=== PATIENT | female | born 1945 | race Caucasian/White ===

== ENCOUNTER → 2017-10-20 12:24 | Outpatient (CLI) | payer MEDICARE, OTHER, SELFPAY | PROVIDERS: PCP Family Medicine; Visit Provider Orthopaedic Surgery Foot and Ankle Surgery | DX: Z01.818 Encounter for other preprocedural examination (principal); Z01.812 Encounter for preprocedural laboratory examination | CPT/HCPCS: 93005 ==

== ENCOUNTER 2017-11-21 18:52 | Emergency (ER) | payer MEDICARE, OTHER, SELFPAY ==
[2017-11-21 18:58] VITALS: BP 112/77; PULSE 73; RESP 16; TEMP 36.7; O2SAT 96; BMI 24.0
--- NOTE | 2017-11-21 19:00 | ED.LOWEXIN ---
HPI - Extremity Injury (Lower) <MONTANA Pretty - Last Filed: 11/21/17 21:37> General Chief Complaint: Extremity Injury, Lower Stated Complaint: RIGHT FOOT PAIN X2 DAYS Time Seen by Provider: 11/21/17 18:59 History of Present Illness HPI Narrative: 72-year-old female here for complaint of pain into her right foot over the past couple days. She recently had surgery to repair a hammertoe to her right 5th toe on 25 October. She has been ambulating on that foot with a surgical boot without complication. She reports increased pain to that area over the past couple of days she denies any trauma to the area. No fevers no chills. She has not been in to see orthopedic clinic for follow-up as of yet. Increased pain with ambulation. Related Data Home Medications Medication Instructions Recorded Confirmed NITROGLYCERIN (Nitrostat) 0.4 mg SUBLINGUAL PRN PRN #0 04/11/10 11/21/17 baclofen 10 mg PO HS #0 10/11/16 11/21/17 aspirin 81 mg PO QDAY #0 10/12/16 11/21/17 oxycodone 10 mg PO QID #0 10/12/16 11/21/17 clopidogrel [Plavix] 75 mg PO HS #0 05/07/17 11/21/17 bisacodyl [Fleet Laxative] 13 tab PO QDAYP PRN #0 05/12/17 11/21/17 diphenhydramine HCl [Benadryl 25 mg PO HSP PRN #0 09/17/17 11/21/17 Allergy] hydrocortisone 50 mg PO BID #0 09/17/17 11/21/17 multivitamin [Multiple Vitamins] 1 tab PO QDAY #0 09/17/17 11/21/17 pantoprazole 40 mg PO BID #0 09/17/17 11/21/17 levothyroxine 112 mcg PO QDAY 10/25/17 11/21/17 losartan 25 mg PO QHS 10/25/17 11/21/17 sucralfate 1 g PO TID 10/25/17 11/21/17 Allergies Allergy/AdvReac Type Severity Reaction Status Date / Time Sulfa (Sulfonamide Allergy Intermediate BLISTERS Unverified 09/22/17 12:56 Antibiotics) latex [LATEX] Allergy Mild RASH Unverified 09/22/17 12:56 cefaclor Allergy Unknown PT DOES Unverified 09/22/17 12:56 NOT REMEMBER ceftriaxone Allergy Unknown PT DOES Unverified 09/22/17 12:56 NOT REMEMBER doxycycline [DOXYCYCLINE] Allergy Unknown UNK Unverified 09/22/17 12:56 formaldehyde [FORMALDEHYDE] Allergy Unknown UNK Unverified 09/22/17 12:56 levofloxacin Allergy Unknown SWELLING Unverified 09/22/17 12:56 penicillin G Allergy Unknown my throat Unverified 09/22/17 12:56 tightens up procaine Allergy Unknown (NOVACAINE) Unverified 09/22/17 12:56 unknown strawberry Allergy Unknown RASH Unverified 09/22/17 12:56 terbinafine Allergy Unknown unknown Unverified 09/22/17 12:56 trazodone [TRAZODONE] Allergy Unknown Unverified 09/22/17 12:56 epinephrine AdvReac Severe PASSED OUT Unverified 09/22/17 12:56 prednisone AdvReac Severe FEELS LIKE Unverified 09/22/17 12:56 SKIN ON FIRE zolpidem AdvReac Severe HALLUCINATI Unverified 09/22/17 12:56 ONS alprazolam AdvReac Mild forgetfulness- Unverified 09/22/17 12:56 IS OKAY WITH LORAZEPAM & TEMAZEPAM adhesive AdvReac Unknown PAPER TAPE Unverified 09/22/17 12:56 OK OTHERS? Review of Systems <MONTANA Pretty - Last Filed: 11/21/17 21:37> Constitutional Denies chills, Denies fever(s), Denies lethargy and Denies weakness Eyes Denies change in vision, Denies eye discharge, Denies irritation and Denies loss of vision ENT Ears, Nose, Mouth, and Throat: Denies change in voice, Denies neck pain and Denies sore throat Cardiovascular Denies chest pain, Denies irregular heart rhythm, Denies lightheadedness, Denies palpitations, Denies dyspnea, Denies dyspnea on exertion and Denies orthopnea Respiratory Denies cough, Denies dyspnea, Denies dyspnea on exertion and Denies wheezing Gastrointestinal Gastrointestinal: Denies abdominal pain, Denies change in bowel habits, Denies diarrhea, Denies nausea and Denies vomiting Genitourinary Denies hematuria, Denies flank pain, Denies urinary incontinence and Denies urinary urgency Musculoskeletal Denies neck pain Comments: Right foot pain Integumentary/Breasts Denies pruritus, Denies erythema, Denies rash and Denies wounds Neurologic Denies confusion, Denies loss of vision and Denies weakness Psychiatric Denies anxiety, Denies confusion, Denies depression, Denies homicidal ideation and Denies suicidal ideation Endocrine Denies palpitations Allergic/Immunologic Denies wheezing Exam <MONTANA Pretty - Last Filed: 11/21/17 21:37> Initial Vital Signs Initial Vital Signs: Vital Signs Temperature 98.0 F 11/21/17 18:58 Pulse Rate 73 11/21/17 18:58 Respiratory Rate 16 11/21/17 18:58 Blood Pressure 112/77 11/21/17 18:58 Pulse Oximetry 96 11/21/17 18:58 Const General: cooperative and well developed Nutritional Appearance: well nourished Orientation: alert, awake, oriented x3 and not confused HENMN Mouth: oral mucosae normal, oropharynx normal and moist mucous membranes Eyes Conjunctivae: conjunctivae normal Sclera: sclerae normal Pupils: PERRL Resp Effort & Inspection: normal respiratory effort, able to speak in complete sentences, no respiratory distress and no use of accessory muscles Auscultation: clear to auscultation bilaterally, no rales, no rhonchi and no wheezes Cardio Rate: regular rate Rhythm: regular rhythm Heart Sounds: no click, no gallops, no murmurs and no rubs Skin General: no rashes or lesions noted, No jaundice and No petechiae Extrem Other: A bandage to the right foot is clean dry and intact. Surgical boot is in place. Incision site to right foot 5 status post hammertoe operation appears to be healing well with no signs of infection. A piece of gauze to to the proximal little toe appeared to be tight causing indentation of the proximal little toe. Slight erythema distal sensation is intact distal cap refill less than 2 sec. Pain is present to the distal little toe no signs of infection. <Crow Luevano DO - Last Filed: 11/21/17 22:19> Initial Vital Signs Initial Vital Signs: Vital Signs Temperature 98.0 F 11/21/17 18:58 Pulse Rate 73 11/21/17 18:58 Respiratory Rate 16 11/21/17 18:58 Blood Pressure 112/77 11/21/17 18:58 Pulse Oximetry 96 11/21/17 18:58 Course <MONTANA Pretty - Last Filed: 11/21/17 21:37> Orders Ordered: ED Orders 11/21/17 19:27 XR foot RT min 3V Stat Vital Signs - 8 hr 11/21/17 18:58 11/21/17 20:32 11/21/17 20:35 Temperature 98.0 F Pulse Rate 73 81 78 Respiratory Rate 16 14 16 Blood Pressure 112/77 140/80 H Blood Pressure [Left Arm] 141/84 H Pulse Oximetry 96 95 98 <Crow Luevano DO - Last Filed: 11/21/17 22:19> Orders Ordered: ED Orders 11/21/17 19:27 XR foot RT min 3V Stat Vital Signs - 8 hr 11/21/17 18:58 11/21/17 20:32 11/21/17 20:35 Temperature 98.0 F Pulse Rate 73 81 78 Respiratory Rate 16 14 16 Blood Pressure 112/77 140/80 H Blood Pressure [Left Arm] 141/84 H Pulse Oximetry 96 95 98 MDM - Extremity Injury (Lower) <MONTANA Pretty - Last Filed: 11/21/17 21:37> Imaging Data foot: Radiologist's impression: PROCEDURE: XR FOOT RT MIN 3V INDICATIONS: Increased pain to right ft status post surgery 2 weeks ago TECHNIQUE: 3 views of the foot were acquired. COMPARISON: None. FINDINGS: Bones: No fractures or dislocations. No suspicious bony lesions. K wire fixation of the right fifth toe. The hardware appears intact. There is expected alignment. There is hallux valgus Soft tissues: No tibiotalar joint effusion. Achilles tendon appears normal. IMPRESSION: Post surgical changes as above. Hallux valgus. Dictated by: Jalil Felton M.D. on 11/21/2017 at 19:58 Approved by: Jalil Felton M.D. on 11/21/2017 at 20:02 [facility] Narrative Medical decision making narrative: X-ray of the right foot was obtained was negative for any acute findings or deformities except for normal postsurgical changes. Patient reports feeling much better after the piece of gauze that was constricting at her little toe toe was loosened. Use currently prescribed pain management regimen as needed for any discomfort. Elevate right foot to help with swelling. Follow up with Orthopedics this week as scheduled. Return to the emergency room or follow-up with Orthopedics for worsening pain or other complications Discharge Plan Departure Patient Disposition: Home, Self-Care Clinical Impression: Acute postoperative pain of right foot Discharge Date/Time: 11/21/17 20:35 Interventions: ED Discharge Assessment Last Done: 11/21/17 20:35 Instructions: How to Care for a Surgical Wound Activity Restrictions/Additional Instructions: X-ray of the right foot was obtained was negative for any acute findings or deformities except for normal postsurgical changes. Pain into the right foot appears to be due to piece of gauze that was constricting toe and was loosened. Use currently prescribed pain management regimen as needed for any discomfort. Elevate right foot to help with swelling. Follow up with Orthopedics this week as scheduled. Return to the emergency room or follow-up with Orthopedics for worsening pain or other complications Prescriptions: No Action NITROGLYCERIN (Nitrostat) 0.4 mg Sublingual PRN PRN (Reason: Angina) Qty: 0 RF: 0 baclofen 10 MG tablet 10 mg PO HS Qty: 0 RF: 0 aspirin 81 MG tablet,delayed release (DR/EC) 81 mg PO QDAY Qty: 0 RF: 0 oxycodone 10 MG tablet 10 mg PO QID Qty: 0 RF: 0 clopidogrel [Plavix] 75 MG tablet 75 mg PO HS Qty: 0 RF: 0 bisacodyl [Fleet Laxative] 5 MG tablet,delayed release (DR/EC) 13 tab PO QDAYP PRN (Reason: Constipation) Qty: 0 RF: 0 hydrocortisone 10 MG tablet 50 mg PO BID Qty: 0 RF: 0 diphenhydramine HCl [Benadryl Allergy] 25 MG tablet 25 mg PO HSP PRN (Reason: Insomnia) Qty: 0 RF: 0 pantoprazole 40 MG tablet,delayed release (DR/EC) 40 mg PO BID Qty: 0 RF: 0 multivitamin [Multiple Vitamins] 1 EACH tablet 1 tab PO QDAY Qty: 0 RF: 0 sucralfate 1 g PO TID RF: 0 losartan 25 mg PO QHS RF: 0 levothyroxine 112 mcg PO QDAY RF: 0 Referrals: Joel Chan MD [Primary Care Provider] - <DO Anel Louise Last Filed: 11/21/17 22:19> Cosign ED Attending Ethan Attestation: I was available for consultation during this patient's emergency department encounter
--- NOTE | 2017-11-21 19:27 | DI.RAD.S_ITS ---
PROCEDURE: XR FOOT RT MIN 3V INDICATIONS: Increased pain to right ft status post surgery 2 weeks ago TECHNIQUE: 3 views of the foot were acquired. COMPARISON: None. FINDINGS: Bones: No fractures or dislocations. No suspicious bony lesions. K wire fixation of the right fifth toe. The hardware appears intact. There is expected alignment. There is hallux valgus Soft tissues: No tibiotalar joint effusion. Achilles tendon appears normal. IMPRESSION: Post surgical changes as above. Hallux valgus. Dictated by: Jalil Felton M.D. on 11/21/2017 at 19:58 Approved by: Jalil Felton M.D. on 11/21/2017 at 20:02
--- NOTE | 2017-11-21 20:00 | PC.NURSE ---
Pt had pin placed in R pinky toe due to hammertoe surgery. here reporting increased pain. pt went to x ray and dressing had to be altered for proper scan, pin was rotated and pt reports that the pressure feels much better ans she thinks the pin was digging into adjacent toe causing half her pain.
[2017-11-21 20:32] VITALS: BP 141/84; PULSE 81; RESP 14; O2SAT 95
[2017-11-21 20:35] VITALS: BP 140/80; PULSE 78; RESP 16; O2SAT 98
== END 2017-11-21 20:35 | disposition home or self-care (01) ==
PROVIDERS: Emergency Provider Nurse Practitioner Family; PCP Family Medicine
DX: M79.671 Pain in right foot (principal); G89.18 Other acute postprocedural pain
CPT/HCPCS: 73630; 99282; 99283

== ENCOUNTER 2018-01-07 07:13 | Day surgery (SDC) | payer MEDICARE, OTHER, SELFPAY ==
[2017-12-21 16:59] VITALS: BMI 25.3
[2018-01-07] VITALS (21 sets, daily range): BP systolic 120–187; BP diastolic 72–118; PULSE 63–99; RESP 10–18; TEMP 36.1–36.9; O2SAT 93–98; BMI 25.3; BMI 27.6
--- NOTE | 2018-01-07 09:38 | PM.PREOP ---
Pre-operative Note Interval Note Pre-op Check: Yes History & Physical Reviewed by Physician and Yes Exam Performed Changes: No H&P completed within 30 days and has changed as indicated here:: no changes
[2018-01-07] MEDS: LACTATED RINGERS 1,000 ML 42 ML IV ×2 (09:42→13:23)
--- NOTE | 2018-01-07 09:47 | SUR.PREOP ---
PT STATED HAD CHEST SPASMS YESTERDAY EVENING AND TOOK ONE NITRO 0.4MG WHICH RELIEVED THE CHEST SPASMS. PER PT DAUGHTER THIS IS COMMON FOR PT RELATED TO PT LUTHER'S. DR. HUITRON MADE AWARE OF THIS PRIOR TO SURGERY. NO NEW ORDERS.
--- NOTE | 2018-01-07 10:19 | SUR.PREOP ---
Block start time 0959 . Monitoring initiated and maintained throughout procedure. Oxygen and medications given per anesthesiologist instructions. Patient remained stable throughout procedure, no adverse reactions noted. Block end time 1013. PT TAKEN INTO THE OR AFTER COMPLETION OF THE BLOCK BY LESLIE TRUJILLO. PT LEFT IN STABLE CONDITION, VSS.
[2018-01-07] MEDS: CLINDAMYCIN 600 MG/50 ML PIGGYBACK 50 MG IV ×2 (10:22→17:24)
--- NOTE | 2018-01-07 10:49 | SUR.OPER ---
Supine on padded OR bed, head on pillow, arms secured on padded arm boards at <90 degrees abduction, legs uncrossed, safety belt at thigh, tape over blanket over lower legs.
[2018-01-07] MEDS: BUPIVACAINE 0.5% (PF) VIAL 30 ML INJ (10:59)
--- NOTE | 2018-01-07 11:41 | PM.PROC.1 ---
Procedures Date/Time Date of procedure: 01/07/18 Time of procedure: 10:00 General Procedure description: Ultrasound guided popliteal sciatic nerve block for post op pain control after Right big toe surgery by Dr. López. Risk and benefits of procedure discussed with patient. ASA monitoring applied to patient. Oxygen given via nasal cannula. 2 mg Versed and 100 mcg fentanyl given for procedural sedation. Skin site was prepped with chlorhexidine and allowed to fully dry. Sterile gloves, mask, hat and probe cover were used to maintain sterility. 2% lidocaine and 30ga needle was used to make a small skin wheal at needle insertion site. Under ultrasound guidance, a 21ga 100mm Pajunk needle was directed near the division of the sciatic nerve into tibial and peroneal nerve in the popliteal fossa (lateral approach). Patient reported no parasthesias. After negative aspiration, 20 mL 0.5% ropivicaine and 10mg dexamethasone were injected around sciatic nerve. Patient tolerated procedure well.
[2018-01-07] MEDS: fentaNYL 100 MCG/2 ML INJ 50 MCG IV ×2 (13:56→14:10)
--- NOTE | 2018-01-07 14:12 | PM.OP.1 ---
Operative Date/Time/Diagnoses Date of procedure: 01/07/18 Time of procedure: 14:12 Pre-op diagnosis: 1. hallux valgus, right M20.11 2. 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 Hammertoe M20.41 4. transfer metatarsalgia Post-op diagnosis: same Procedure & Clinicians Procedure: 1. Arthrodesis of metatarsal phalangeal joint great toe, right CPT code 19383 T5 2. Correction hammertoe, right CPT 56040 T6 3. Elizabeth osteotomy 2nd metatarsal cpt [id number] [id number] 4. mtp capsulotomy 45416-h0 Same procedure as scheduled: Yes Indications: The patient is a 72-year-old female with painful hallux valgus and 2nd toe crossover deformity with hammertoe. She feels she has failed conservative treatment with shoe modification, splinting, taping and toe spacers and is requesting surgery. Discussed surgical planning which would include a fusion of the 1st metatarsophalangeal joint as well as correction of the 2nd hammertoe including 2nd metatarsal Elizabeth osteotomy, capsulotomy and extensor tendon lengthening. Patient has no pain in her 3rd and 4th toes that we will not address these. Risks benefits and alternatives to the procedure were explained to the patient in detail including risks for infection, nonunion, malunion, persistence of pain, and hardware irritation, need for additional surgeries, and nerve damage to nerves and vessels, DVT, PE, cardiopulmonary complications, . The patient has expressed their understanding of the surgery and postoperative recovery choir minutes and has elected to proceed. Consent was signed in the office. Surgeon: Christy López Diabetes Territory Manager: Shanda Lopez Anesthesia Type: General and Peripheral nerve block Operative Notes Findings: There is a severe hallux valgus bunion deformity and crossover toe on the right foot. Upon arthrotomy of the 1st MTP joint there was noted significant cartilage thinning across the 1st metatarsal head with a central deeper, full-thickness cartilage defect. There is a prominent medial eminence and mild dorsal spurring. Additionally there was a inferior lateral cartilage defect the base of the proximal phalanx. Metatarsal and proximal phalanx were prepared with conical reamers. After satisfactory alignment was obtained the joint was pinned and stabilized using a 4 0 cannulated lag screw and a dorsal plate from the paragon 28 MTP set which was a small right side plate with 3 distal locking options this was a 0 degree plate slightly bent to approximately 3?. The 2nd crossover toe deformity was then addressed with a standard elliptical incision at the PIP joint. the distal aspect of the proximal phalanx was excised with a saw and the base of the middle phalanx was curretted. Hammertoe arthrodesis was stabilized with 2 045 K-wires. A curvilinear incision was made over the 2nd MTP joint the extensor tendons were lengthened in a Z-fashion. capsulotomy was made and the 2nd metatarsal Elizabeth osteotomy was completed to address the transfer metatarsalgia and was proximally shifted approximately 4 mm and transfixed with a 2.0mm snap off screw from [id number]. Closure Type: primary Specimen(s): none sent Implants & Drains: [place] 28 right-sided small 0? 1st MTP plate-3 hole distal locking option 4.0 30mm cannulated lag screw 2 045K wires 2.0 snap-off Applied: other (Splint) Estimated Blood Loss (mL): 25 Tourniquet time (min): 120 Procedure in detail: The patient was seen in the preoperative area and the consent was confirmed and the surgical site marked. Final questions were answered. The patient was then brought to the operative room by the anesthesia team. Regional block had been performed. Patient was placed supine on the operative table. General anesthesia was administered. All bony prominences were well padded. Padding was placed under the peroneal nerve. Well-padded thigh tourniquet was placed. Right lower extremities prepped and draped in the standard sterile fashion after a two-step pre scrubb with alcohol and chlorhexidine. Formal time-out procedure was performed confirming the patient, side, site of surgery, presence of consent, and administration of preoperative antibiotics which was clindamycin due to PCN allergy. All were in agreement. Planned Implants were in the room and accounted for. An Esmarch bandage was used for exsanguination and the tourniquet on the right lower extremity was elevated to 300 mm of mercury and stayed there for 120 min. Attention was turned to the right foot. There is a severe hallux valgus deformity with crossover 2nd toe. Attention was turned to the great toe. Longitudinal incision was made just medial to the extensor hallucis longus. This was taken down through the skin and subcutaneous tissue. The EHL was retracted laterally, the capsulotomy was performed through the capsule and EHB, and flaps were created to expose the 1st MTP joint. Prominent medial eminence and mild dorsal osteophytes were noted as well as generalized cartilage thinning and a central full-thickness cartilage defect. There was also a cartilage defect inferior lateral at the proximal phalanx base, and generalized cartilage thinning. Again this is greatest centrally. The TPS saw was used to remove the medial eminence in line with the 1st metatarsal. A rongeur was used remove the largest dorsal osteophytes. Next a guidewire for the conical reamers was placed centrally in the 1st metatarsal under fluoroscopic guidance. The conical reamers were selected started with the large size 23 which was much larger than the metatarsal head this was downsized for the 21 which was used for reaming followed by the 19 this provided a good fit and reaming down to cancellous bone. Next guidewire was removed and placed centrally in the proximal phalanx and the matching male reamers were used to ream the proximal phalanx in a similar fashion. Once we were satisfied with the reaming guidewire was removed. The wound was irrigated. The joint surfaces were then drilled with a 2.0 drill and 1.6 K-wire under cooling. This provided excellent bone surfaces for arthrodesis. Next the joint was aligned and pinned in place. Alignment was evaluated under fluoroscopic guidance in multiple planes and also tested on a flat plate which confirmed a [place] could easily pass under the tip of the toe providing 2-3 mm of clearance. Also noted this reduced the hallux valgus and intermetatarsal angle well. Next a guidewire for the 4 0 cannulated screw was placed from distal medial to proximal lateral. This was overdrilled, countersunk. Then the cannulated screw was placed achieving excellent bite and compression. A right small MTP plate was selected it was found that the 0 plate with a slight bend fit best for this patient. This was secured in place with BB tacks. locking screws were placed distally followed by 2 locking screws proximally and a nonlocking screw in the compression slot, the initial placed nonlocking screw in the compression slot was a 15 and this did not achieve adequate bite therefore this was exchanged for an 18 mm which also was loose. A new drill hole was made in the more proximal aspect of the compression slot a 20 screw was placed to achieve a better bite and was left in place. Appropriate alignment and hardware placement was confirmed on fluoroscopy. Attention was then turned to the 2nd crossover toe The extensor tendons were noted to be contracted and tight at the 2nd MTP joint. Curvilinear incision was then made over the MTPJ the extensor tendons were lengthened in a Z-fashion. The capsulotomy was then made to expose the 2nd MTP joint. Sec MTP was long and contributing to the crossover toe deformity and metatarsalgia. this was then shortened with a Elizabeth osteotomy and fixed with a 2.0 snap off screw. To address the hammertoe- Elliptical incision was made over the PIP joint. Small area of skin and extensor tendon were then excised. The TPS saw was used to transect the distal proximal phalanx at the condyles perpendicular to the bone. Curette was then used to prepare the proximal aspect of the middle phalanx. 2-045 K-wires were placed to transfix the PIP arthrodesis were confirmed on fluoroscopy. All wounds were irrigated. The extensor tendons were repaired in a [id number] fashion with 4 0 Vicryl suture. The distal hammertoe incision was closed with 4 0 nylon in a vertical mattress fashion to incorporate the skin and extensor tendon into the repair. One of the 045 K-wires was advanced across the MTP joint to aid in fixation strength. Subcutaneous tissue was closed with 4 0 Monocryl and skin was closed with 4 0 nylon The 1st MTP wound was irrigated and the capsule was closed with 2 0 Maxon suture, subcutaneous tissues were closed with for O Vicryl and 4 0 Monocryl, the skin was closed with 4 0 nylon suture. Sterile dressings were placed with Xeroform gauze Webril ABD pads and a posterior splint. K-wires were cut and capped. All counts were correct. The patient was then awoken from anesthesia and taken to the PACU in good condition. There were no immediate complications from this procedure. Complications: none Condition: stable Disposition: PACU Plan for aftercare: The patient will be nonweightbearing on her right lower extremity for approximately 3 weeks. She will be converted to a cast her 1st postoperative appointment and Then she will be 3 weeks of heel weight-bearing. If she is not able to sufficiently balance on her heels and she will be nonweightbearing for 6 weeks until her pins are pulled in the clinic. She will restart her aspirin on postoperative day 1. She will continue to hold her Plavix, which she has actually been off of it since the end of November for an episode of intestinal bleeding.
[2018-01-07] MEDS: HYDROMORPHONE 2 MG INJ 0.5 MG IV ×4 (14:29→14:57)
--- NOTE | 2018-01-07 14:43 | P.OP_ITS ---
Operative Date/Time/Diagnoses Date of procedure: 01/07/18 Time of procedure: 14:12 Pre-op diagnosis: 1. hallux valgus, right M20.11 2. 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 Hammertoe M20.41 4. transfer metatarsalgia Post-op diagnosis: same Procedure & Clinicians Procedure: 1. Arthrodesis of metatarsal phalangeal joint great toe, right CPT code 87765 T5 2. Correction hammertoe, right CPT 47192 T6 3. Elizabeth osteotomy 2nd metatarsal cpt [id number] [id number] 4. mtp capsulotomy [id number]-b3 Same procedure as scheduled: Yes Indications: The patient is a 72-year-old female with painful hallux valgus and 2nd toe crossover deformity with hammertoe. She feels she has failed conservative treatment with shoe modification, splinting, taping and toe spacers and is requesting surgery. Discussed surgical planning which would include a fusion of the 1st metatarsophalangeal joint as well as correction of the 2nd hammertoe including 2nd metatarsal Elizabeth osteotomy, capsulotomy and extensor tendon lengthening. Patient has no pain in her 3rd and 4th toes that we will not address these. Risks benefits and alternatives to the procedure were explained to the patient in detail including risks for infection, nonunion , malunion, persistence of pain, and hardware irritation, need for additional surgeries, and nerve damage to nerves and vessels, DVT, PE, cardiopulmonary complications, . The patient has expressed their understanding of the surgery and postoperative recovery choir minutes and has elected to proceed. Consent was signed in the office. Surgeon: Christy López Contact Worker Lithography: Shanda Lopez Anesthesia Type: General and Peripheral nerve block Operative Notes Findings: There is a severe hallux valgus bunion deformity and crossover toe on the right foot. Upon arthrotomy of the 1st MTP joint there was noted significant cartilage thinning across the 1st metatarsal head with a central deeper, full-thickness cartilage defect. There is a prominent medial eminence and mild dorsal spurring. Additionally there was a inferior lateral cartilage defect the base of the proximal phalanx. Metatarsal and proximal phalanx were prepared with conical reamers. After satisfactory alignment was obtained the joint was pinned and stabilized using a 4 0 cannulated lag screw and a dorsal plate from the paragon 28 MTP set which was a small right side plate with 3 distal locking options this was a 0 degree plate slightly bent to approximately 3?. The 2nd crossover toe deformity was then addressed with a standard elliptical incision at the PIP joint. the distal aspect of the proximal phalanx was excised with a saw and the base of the middle phalanx was curretted. Hammertoe arthrodesis was stabilized with 2 045 K-wires. A curvilinear incision was made over the 2nd MTP joint the extensor tendons were lengthened in a Z-fashion. capsulotomy was made and the 2nd metatarsal Elizabeth osteotomy was completed to address the transfer metatarsalgia and was proximally shifted approximately 4 mm and transfixed with a 2.0mm snap off screw from [email or web address]. Closure Type: primary Specimen(s): none sent Implants & Drains: Motley 28 right-sided small 0? 1st MTP plate-3 hole distal locking option 4.0 30mm cannulated lag screw 2 045K wires 2.0 snap-off Applied: other (Splint) Estimated Blood Loss (mL): 25 Tourniquet time (min): 120 Procedure in detail: The patient was seen in the preoperative area and the consent was confirmed and the surgical site marked. Final questions were answered. The patient was then brought to the operative room by the anesthesia team. Regional block had been performed. Patient was placed supine on the operative table. General anesthesia was administered. All bony prominences were well padded. Padding was placed under the peroneal nerve. Well-padded thigh tourniquet was placed. Right lower extremities prepped and draped in the standard sterile fashion after a two-step pre scrubb with alcohol and chlorhexidine. Formal time-out procedure was performed confirming the patient, side, site of surgery, presence of consent, and administration of preoperative antibiotics which was clindamycin due to PCN allergy. All were in agreement. Planned Implants were in the room and accounted for. An Esmarch bandage was used for exsanguination and the tourniquet on the right lower extremity was elevated to 300 mm of mercury and stayed there for 120 min. Attention was turned to the right foot. There is a severe hallux valgus deformity with crossover 2nd toe. Attention was turned to the great toe. Longitudinal incision was made just medial to the extensor hallucis longus. This was taken down through the skin and subcutaneous tissue. The EHL was retracted laterally, the capsulotomy was performed through the capsule and EHB, and flaps were created to expose the 1st MTP joint. Prominent medial eminence and mild dorsal osteophytes were noted as well as generalized cartilage thinning and a central full-thickness cartilage defect. There was also a cartilage defect inferior lateral at the proximal phalanx base, and generalized cartilage thinning. Again this is greatest centrally. The TPS saw was used to remove the medial eminence in line with the 1st metatarsal. A rongeur was used remove the largest dorsal osteophytes. Next a guidewire for the conical reamers was placed centrally in the 1st metatarsal under fluoroscopic guidance. The conical reamers were selected started with the large size 23 which was much larger than the metatarsal head this was downsized for the 21 which was used for reaming followed by the 19 this provided a good fit and reaming down to cancellous bone. Next guidewire was removed and placed centrally in the proximal phalanx and the matching male reamers were used to ream the proximal phalanx in a similar fashion. Once we were satisfied with the reaming guidewire was removed. The wound was irrigated. The joint surfaces were then drilled with a 2.0 drill and 1.6 K-wire under cooling. This provided excellent bone surfaces for arthrodesis. Next the joint was aligned and pinned in place. Alignment was evaluated under fluoroscopic guidance in multiple planes and also tested on a flat plate which confirmed a [place] [facility] could easily pass under the tip of the toe providing 2-3 mm of clearance. Also noted this reduced the hallux valgus and intermetatarsal angle well. Next a guidewire for the 4 0 cannulated screw was placed from distal medial to proximal lateral. This was overdrilled, countersunk. Then the cannulated screw was placed achieving excellent bite and compression. A right small MTP plate was selected it was found that the 0 plate with a slight bend fit best for this patient. This was secured in place with BB tacks. locking screws were placed distally followed by 2 locking screws proximally and a nonlocking screw in the compression slot, the initial placed nonlocking screw in the compression slot was a 15 and this did not achieve adequate bite therefore this was exchanged for an 18 mm which also was loose. A new drill hole was made in the more proximal aspect of the compression slot a 20 screw was placed to achieve a better bite and was left in place. Appropriate alignment and hardware placement was confirmed on fluoroscopy. Attention was then turned to the 2nd crossover toe The extensor tendons were noted to be contracted and tight at the 2nd MTP joint. Curvilinear incision was then made over the MTPJ the extensor tendons were lengthened in a Z-fashion. The capsulotomy was then made to expose the 2nd MTP joint. Sec MTP was long and contributing to the crossover toe deformity and metatarsalgia. this was then shortened with a Elizabeth osteotomy and fixed with a 2.0 snap off screw. To address the hammertoe- Elliptical incision was made over the PIP joint. Small area of skin and extensor tendon were then excised. The TPS saw was used to transect the distal proximal phalanx at the condyles perpendicular to the bone. Curette was then used to prepare the proximal aspect of the middle phalanx. 2-045 K-wires were placed to transfix the PIP arthrodesis were confirmed on fluoroscopy. All wounds were irrigated. The extensor tendons were repaired in a [id number] fashion with 4 0 Vicryl suture. The distal hammertoe incision was closed with 4 0 nylon in a vertical mattress fashion to incorporate the skin and extensor tendon into the repair. One of the 045 K-wires was advanced across the MTP joint to aid in fixation strength. Subcutaneous tissue was closed with 4 0 Monocryl and skin was closed with 4 0 nylon The 1st MTP wound was irrigated and the capsule was closed with 2 0 Maxon suture , subcutaneous tissues were closed with for O Vicryl and 4 0 Monocryl, the skin was closed with 4 0 nylon suture. Sterile dressings were placed with Xeroform gauze Webril ABD pads and a posterior splint. K-wires were cut and capped. All counts were correct. The patient was then awoken from anesthesia and taken to the PACU in good condition. There were no immediate complications from this procedure. Complications: none Condition: stable Disposition: PACU Plan for aftercare: The patient will be nonweightbearing on her right lower extremity for approximately 3 weeks. She will be converted to a cast her 1st postoperative appointment and Then she will be 3 weeks of heel weight-bearing. If she is not able to sufficiently balance on her heels and she will be nonweightbearing for 6 weeks until her pins are pulled in the clinic. She will restart her aspirin on postoperative day 1. She will continue to hold her Plavix, which she has actually been off of it since the end of November for an episode of intestinal bleeding.
--- NOTE | 2018-01-07 15:03 | SUR.PHASEI ---
pt arrived to pacu hypertensive and Dr. Palafox informed. He stated she is always hypertensive. She is in sr no other complaints noted. Pt continues to complain of left hip pain. Pt arrived to hospital with left hip pain and it is chronic. Dr. Palafox aware.
--- NOTE | 2018-01-07 16:03 | PT.IPTN ---
Current Diagnoses Hallux valgus (acquired), right foot (01/07/18) Other deformities of toe(s) (acquired), right foot (01/07/18) Surgery Performed Operation Date: 01/07/18 10:45 Actual Procedures p 1st MTPJ Fusion(Right) - Christy López MD s Correction of 2nd Toe Crossover and Hammertoe(Right) - Christy López MD s Capsulotomy, MTPJ(Right) - Christy López MD s Poss Elizabeth Osteotomy 2nd Metatarsal(Right) - Christy López MD Physical Therapy Treatment Note M3 PT-IP Subjective Start: 01/07/18 16:01 Freq: NEEDED Status: Active Protocol: Document 01/07/18 16:02 AB (Rec: 01/07/18 16:03 AB [id number]) Subjective Physical Therapy Visit Type Type Patient Refusal Notes checked on pt and pt refused therapy stated taht she just got up on the floor. daughter present in room.
[2018-01-07] MEDS: OXYCODONE IR 10 MG TABLET PO (17:23)
[2018-01-07] MEDS: SODIUM CHLORIDE 0.9% 250 ML 21 ML IV (17:23)
[2018-01-07] MEDS: SUCRALFATE 1 GM TABLET PO ×2 (17:23→20:11)
[2018-01-07] MEDS: SODIUM CHLORIDE 0.9% FLUSH 10 ML IV ×2 (17:24→20:10)
[2018-01-07] MEDS: HYDROCORTISONE 10 MG TABLET 30 MG PO (20:10)
[2018-01-07] MEDS: LOSARTAN 25 MG TABLET PO (20:11)
[2018-01-07] MEDS: PANTOPRAZOLE 40 MG TABLET PO (20:11)
[2018-01-07] MEDS: DOCUSATE 100 MG CAPSULE PO (20:11)
[2018-01-07] MEDS: BACLOFEN 10 MG TABLET PO (20:12)
[2018-01-07] MEDS: OXYCODONE IR 5 MG TABLET PO (20:38)
--- NOTE | 2018-01-07 20:45 | PC.NURSE ---
POST-Op Received pt at approximately 1515 via courtney, accompanied by AUDIO DIRECTOR. A&Ox3, plesant and cooperative with care. R foot in soft splinted cast slightly moistened, unable to assess pulse due to dressing but cap refill to toes intact. pt with no sensation or movement initially (received nerve block intra-op). pt voiced chest pain to CHANNELER, denied to this RN, c/o L hip pain, R foot pain and headache. pt can become anxious when discussing pain medication times (very anxious that we are unable to follow her home schedule due to time of transfer and requesting medication 3 hours early). spoke with pt's daughter, Arleen, who was able to explain administration times and pt agreeable to have PRN oxycodone Q3H. pt tolerating Po intake without issues. R foot kept elevated. voiding via bedpan without difficulties. oriented to room and call light.
[2018-01-08] VITALS (9 sets, daily range): BP systolic 115–160; BP diastolic 69–94; PULSE 67–88; RESP 16–20; TEMP 36.2–36.7; O2SAT 96–98
[2018-01-08] MEDS: OXYCODONE IR 5 MG TABLET PO ×7 (00:10→20:04)
[2018-01-08] MEDS: CLINDAMYCIN 600 MG/50 ML PIGGYBACK 50 MG IV (03:17)
[2018-01-08 05:30] LABS: Hematocrit 36.7 % (36-46); Hemoglobin 12.1 g/dL (12.0-16.0); Mean Corpuscular HGB Conc 33.1 % (30-36); Mean Corpuscular Hemoglobin 26.4 PG (26-34); Mean Corpuscular Volume 79.9 fL (80-100); Platelet Count 171 X10^3/uL (150-400); Red Blood Cell Count 4.59 X10^6/uL (4.0-5.2); White Blood Cell Count 13.3 X10^3/uL (4.5-11.0)
[2018-01-08] MEDS: LEVOTHYROXINE 112 MCG TABLET PO (07:59)
[2018-01-08] MEDS: SUCRALFATE 1 GM TABLET PO ×4 (08:39→20:05)
[2018-01-08] MEDS: DOCUSATE 100 MG CAPSULE PO ×2 (09:53→20:04)
[2018-01-08] MEDS: PANTOPRAZOLE 40 MG TABLET PO ×2 (09:53→20:04)
[2018-01-08] MEDS: HYDROCORTISONE 10 MG TABLET 30 MG PO ×2 (09:53→20:03)
[2018-01-08] MEDS: ASPIRIN EC 81 MG TABLET PO (09:53)
[2018-01-08] MEDS: SODIUM CHLORIDE 0.9% FLUSH 10 ML IV ×3 (09:55→21:56)
--- NOTE | 2018-01-08 10:16 | PM.PNPO.1 ---
Subjective Date Patient Seen: 01/08/18 Time Patient Seen: 10:16 Interval history: Hospital day 2, postop day 1 following right foot 1st MPJ arthrodesis, 2nd toe toe hammertoe repair with Elizabeth osteotomy and capsulotomy by Dr. López. Patient laid of pain throughout night. Has had right foot elevated throughout the night. She has not been out of bed since surgery. She is outpatient with bed status. Patient also complains of left low back and left radicular leg pain which has been present for about 2 weeks. She was seen by Dr. Humphries 10 days ago to evaluate this. X-ray at that time noted at degenerative disc disease in lumbar spine. Dr. Humphries had planned to do a lumbar spine MRI which has not been done. Patient is requesting discharge to SNF. She is to be nonweightbearing to her right foot x3 weeks. She states she does not have anyone at home to help her. Exam Vital Signs (past 8 hours): - 01/08/18 05:40 Temperature 97.1 F L Pulse Rate 67 Respiratory Rate 16 Blood Pressure 137/79 H Pulse Oximetry 96 Oxygen Delivery Method Room Air Oxygen Flow Rate 0 Narrative Exam Narrative: Alert, responsive. In the discomfort lying in bed. Back. Tenderness on palpation to the left lower lumbar area. Legs. Right leg. Dressing and splint to right lower leg is dry. Good blanching of toes. Left leg. No calf pain or swelling. Pulses symmetrical. She does have 4/5 strength to left leg with SLR and foot dorsiflexion plantar flexion. Objective Labs Result Diagrams: 01/08/18 05:15 Labs: Laboratory Results - last 24 hr 01/08/18 05:15 WBC 13.3 H RBC 4.59 Hgb 12.1 Hct 36.7 MCV 79.9 L MCH 26.4 MCHC 33.1 RDW 16.0 H Plt Count 171 Assessment & Plan Post-op (1) Lumbar back pain with radiculopathy affecting left lower extremity: Current Visit: Yes Status: Acute Postoperative Procedures Operation Date: 01/07/18 10:45 Actual Procedures Side Surgeon p 1st MTPJ Fusion Right Christy López MD s Correction of 2nd Toe Crossover and Hammertoe Right Christy Lópze MD s Capsulotomy, MTPJ Right Christy López MD s Poss Elizabeth Osteotomy 2nd Metatarsal Right Christy López MD Patient will work with PT/OT today. environmental planner will discuss with the patient possible discharge options. [facility]. We will start Decadron 4 mg q.8h to help with lumbar radiculopathy. Patient be nonweightbearing to her right foot x3 weeks. Discharge pending planning by environmental emergencies planner. Time Spent With Patient less than 15 minutes Quality VTE Deep Vein Thrombosis/Pulmonary Embolism Present on Admission: No
--- NOTE | 2018-01-08 10:23 | RT ---
pt seen post-op rt leg, pt started on incentive Spirometer pred-2,000cc pt is able to do 500cc pt instructed to use Q1 w/a x10 brewaths from 8am-8pm, pt is very cooperative and should not have any problems using her i/s, spo2 98% sat on room air, hr-70,F-16, bs are equal and Generally clear.
[2018-01-08] MEDS: DEXAMETHASONE 4 MG TABLET PO ×2 (11:25→20:04)
--- NOTE | 2018-01-08 12:05 | PT.IIE ---
Current Diagnoses Hallux valgus (acquired), right foot (01/07/18) Other deformities of toe(s) (acquired), right foot (01/07/18) Radiculopathy, lumbar region (01/07/18) Surgery Performed Operation Date: 01/07/18 10:45 Actual Procedures p 1st MTPJ Fusion(Right) - Christy López MD s Correction of 2nd Toe Crossover and Hammertoe(Right) - Christy López MD s Capsulotomy, MTPJ(Right) - Christy López MD s Poss Elizabeth Osteotomy 2nd Metatarsal(Right) - Christy López MD Surgical History (Last Updated 12/29/17 @ 10:32 by Hilary Garcia, RN) History of Radhika fundoplication (Acute) History of arthroplasty of both knees (Acute) History of bilateral oophorectomies (Acute) History of bladder surgery (Acute) History of colonoscopy with polypectomy (Acute) History of coronary artery stent placement (Acute) History of esophagogastroduodenoscopy (EGD) (Acute) History of tonsillectomy (Acute) History of total right hip arthroplasty (Acute) Hx of appendectomy (Acute) Hx of cardiac cath (Acute ~2012) Hx of total knee arthroplasty (Acute) S/P surgical manipulation of ankle joint (Acute) Medical History (Last Updated 12/29/17 @ 14:24 by Hilary Garcia, RN) Carlton disease (Acute) Allergic rhinitis (Acute) Altered mental status (Acute) Anemia in other chronic diseases classified elsewhere (Acute) Anxiety (Acute) Aphasia (Acute) Arthritis (Acute) Asthma (Acute) Bowel obstruction (Acute ~2015) CAD (coronary artery disease) (Acute) CVA (cerebral vascular accident) (Acute) Cellulitis (Acute) Chronic chest pain (Acute) Chronic constipation (Acute) Chronic pain (Acute) Colonic disease (Acute) Contusion of right hand including fingers (Acute) 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) Depression (Acute) Diarrhea (Acute) Diverticulosis (Acute) Dyspnea on exertion (Acute) Fall (Acute) Femur fracture (Acute) GERD (gastroesophageal reflux disease) (Acute) GI bleed (Acute ~12/11/17) Generalized headaches (Acute) Generalized weakness (Acute) Hallux valgus (acquired), right foot (Acute) Hammer toe of right foot (Acute ~10/25/17) Head injury (Acute) Hiatal hernia (Acute) Hip fracture (Acute) History of UTI (Acute) History of colitis (Acute) History of confusion (Acute) History of headache (Acute) History of hysterectomy (Acute) History of ulcer disease (Acute) Hyperthyroidism, subclinical (Acute) Hypokalemia (Acute) Hypotension (Acute) Hypothyroidism (Acute) Impaired vision (Acute) Incontinence (Acute) Myocardial infarction (Acute) Nausea (Acute) Nausea & vomiting (Acute) Opioid dependence (Acute) Ovarian cancer (Acute) PTSD (post-traumatic stress disorder) (Acute) Pneumonia (Acute) Right foot pain (Acute) Sepsis (Acute) Septic joint of left knee joint (Acute) Sialadenitis (Acute) Sleep apnea (Acute) Urinary incontinence (Acute) Physical Therapy Inpatient Evaluation/Re-Eval M1 PT/OT-IP Prior Functional Status Start: 01/07/18 16:01 Freq: NEEDED Status: Active Protocol: Document 01/08/18 12:05 [facility] (Rec: 01/08/18 13:28 [facility] [id number]) Medical Review Prior Functional Status Medical History Reviewed Yes Diet/Fluid Consistency Regular Communication some hesitation occasionally with discussion but WNL Mobility and Gait modified indep. ambulator with occasional use of walker or cane. Activities of Daily Living and IADL's modified indep. ADLs Social History Household Members children Living Arrangements Apartment/Condo Number of Floors (Floors) One Floor Number of Stairs To Enter/Railing? ramped entry Home Environment Walk in Shower Tub/Shower Ramp Home Equipment Front Wheel Walker Four Wheel Walker Straight Cane Additional Social History Comment transport chair, knee scooter. Pt's son works during the day and daughter is only able to assist occasionally. Pt reports at least 7 previous falls, and expresses her concern for falling. M2 PT-IP Current Condition Start: 01/07/18 16:01 Freq: NEEDED Status: Active Protocol: Document 01/08/18 12:05 [facility] (Rec: 01/08/18 13:28 [facility] [email or web address]) Physical Therapy Current Condition Current Condition Evaluation Date 01/08/18 Treatment Diagnosis R foot surgery, impaired mobility Onset Date 01/07/18 Precautions Other Precautions NWB for 3 weeks, then will be casted @ wk 3 and then may WB through heel only if healing well. Weight Bearing Status Weight Bearing Status Non-Weight Bearing Allowed Weight Bearing Amount (enter % NWB RLE or #) (%) M3 PT-IP Subjective Start: 01/07/18 16:01 Freq: NEEDED Status: Active Protocol: Document 01/08/18 12:05 [facility] (Rec: 01/08/18 13:28 [facility] [email or web address]) Subjective Physical Therapy Visit Type Type Initial Evaluation Visit Start Time 11:32 Visit Stop Time 12:05 Total Visit Minutes 33 Notes daughter and son in room during session. surgical information: 1st MPJ arthrodesis, 2nd toe toe hammertoe repair with Elizabeth osteotomy and capsulotomy by Dr. López 01/07/2018. Number of COLLEGE COUNSELOR Visits 0 Physical Therapy Visit Comments Patient Comments Pt is afraid of falling, she does not feel safe going home due to not being able to have full assistance. Short Term Goals improve mobility. Therapy Pain Assessment Pain When Pain Assessed At Rest Pain Present Pain Present Pain Reported Location Right Foot Intensity 8 Scale Used Numeric (1 - 10) M4 PT-IP Mobility and Gait Start: 01/07/18 16:01 Freq: NEEDED Status: Active Protocol: Document 01/08/18 12:05 [facility] (Rec: 01/08/18 13:28 [facility] [email or web address]) PT-Bed Mobility Assessment Sit to Supine Sit to Supine Minimal Assistance Scooting Scooting to Edge of Bed Minimal Assistance PT-Transfer Assessment Sit to and From Stand Sit to and from Stand Minimal Assistance 1 Person Assistance Use of Upper Extremities Equipment Transfer Assistive Device Gait Belt Large Based Quad Cane Transfers Transfer Destination Chair Transfer Technique Lateral Scoot Transfer Ability Level of Assist Minimal Assistance Use of Upper Extremities Comments Mobility Comments transfer to the L to chair, moderate VC for sequencing and optimal positioning of FWW. Gait Assessment Gait Gait Assistance Required: Minimum Assistance 2 Person Assist Distance (Feet) (feet) 2 Able to Maintain Weight Bearing Status Yes During Gait Assistive Devices Assistive Device Gait Belt Front Wheeled Walker Factors Limiting Gait Function Factors Limiting Gait Function Decreased Activity Tolerance Decreased Strength Pain Poor Balance Comments Gait Comments slow hopping forward and backward ~2 ft each direction using FWW. PT-Balance Assessment Sitting Balance and Reactions Static Sitting Balance Ability Good Dynamic Sitting Balance Ability Good Standing Balance and Reactions Static Standing Balance Ability Fair Dynamic Standing Balance Ability Poor Device Used FWW M5 PT-IP Objective Assessments Start: 01/07/18 16:01 Freq: NEEDED Status: Active Protocol: Document 01/08/18 12:05 [facility] (Rec: 01/08/18 13:28 [facility] [email or web address]) Orientation Orientation/Cognition Level of Alertness Alert Orientation Name Age Birthday Month Date Year Day of Week Place Situation Safety Awareness Understands Safety Issues Strength Comments Strength Comments RLE weakness with hip flexion due to pain and extra bulk of splint. Coordination Assessment Gross Coordination Gross Coordination WNL Assessment Coordination Comments unable to test R ankle due to surgery. M6 PT-IP Treatment Start: 01/07/18 16:01 Freq: NEEDED Status: Active Protocol: Document 01/08/18 12:05 [facility] (Rec: 01/08/18 13:28 [facility] [email or web address]) Physical Therapy Treatment Education Education Provided Precautions Weight Bearing Status Safety M7 PT-IP Assessment and Plan Start: 01/07/18 16:01 Freq: NEEDED Status: Active Protocol: Document 01/08/18 12:05 [facility] (Rec: 01/08/18 13:28 [facility] [email or web address]) PT Summary Assessment and Plan Potential Rehabilitation Potential Excellent Status of Condition at Evaluation Stable Summary Impairments Pain ROM Strength Balance Bed Mobility Transfers Gait Activity Tolerance Assessment Summary POD #1 R 1st MPJ arthrodesis, 2nd toe toe hammertoe repair with Elizabeth osteotomy and capsulotomy by Dr. López. Pt able to maintain NWB status of the RLE, but fatigues very quickly and requires both verbal and physical assistance to manage the FWW and safely maneuver forward, backward and laterally to chair. Pt will not be able to have 24/7 assistance upon d/c, which is what would be required given her h/o of multiple falls at home and a new condition with strict NWB for at least 3 weeks. Pt would not be able to enter/exit home safely without assistance either, which poses a threat and danger to the pt in case of emergency at home. Pt would greatly benefit from SNF rehabilitation to improve to indep. with mobility and safety with functional activities. Goals Bed Mobility Goal Standby Assistance Transfer Goal Standby Assistance Gait Goal Standby Assistance Front Wheel Walker Gait Distance 20 Other Goals modified indep. management of knee scooter without cuing. Days to Meet Goals 3 Frequency of Treatment Frequency Of Treatment Twice a Day Treatment Plan Physical Therapy Treatment Plan Bed Mobility Training Transfer Training Gait Training Therapeutic Exercise Balance Retraining Post Op Education Discharge Planning Hot or Cold Pack Neuromuscular Re-ed Recommendations To Nursing Amount of Assist Needed 1 Person Assist Discharge Recommendations PT Discharge Recommendations SNF Rehab
[2018-01-08] MEDS: VORTIOXETINE 15 EACH PO (14:16)
--- NOTE | 2018-01-08 15:01 | PC.NURSE ---
pt alert and oriented, vss, pain not well controlled, 5 mg oxycodone PO, administered q3 around the clock per request with little impact. Worked with physical therapy and is progressing well with 2 person assist, FWW and gait belt for in room mobilization. Tolerating po intake well, had tiny BM this shift, states to have chronic problems with constipation. Last BM stated to be on the .
--- NOTE | 2018-01-08 15:20 | CM.DANOTE ---
Patient is a 72 year old female who was admitted on 01/07/18 for OPB Metatarsal Phalangeal Joint Fusion. Pt has [place] and [place] and AARP for insurance and her PCP is Dr. Chan. EMR was reviewed. Per Ortho PA, pt is non-weight baring for 3 weeks and lives alone with busy local family and pt requesting [facility] SN[facility] rehab prior to home. Per PT, recommending SNF vs Home with HH. SW met bedside with pt and explained role and pt confirmed that she lives at home in [place] and has local son Omega, who works a lot and not able to get time off, and Dtr Arleen ([phone]) who is going to school and is her DPOA. Pt confirms that she has a hx of [facility] a couple years ago and states that she would like [facility] before safe d/c home. SW had lengthy discussion with pt and her son and Dtr via phone, at pt's request, and fully discussed OBS Status and the criteria to meet Inpt Status for Medicare to cover SNF. SW discussed possible options of Private pay SNF, HH and private pay caregivers, and calling both [employer]ARP and [place] supplemental to determine if pt has any coverage for in-home support. Pt and family both upset about Medicare criteria and pt not meeting Inpt Status but aware that this is a governmental/healthcare issue and outside of the hospital's availability for change. Dtr states that she is willing to call pt's supplemental insurance to determine if any in-home coverage and states that she may end up just having to stay with the pt at d/c and utilize HH but they will make some calls and talk to the pt more tomorrow to determine safe d/c plan and hopeful that pt can remain in the hospital tomorrow to give them more of a chance to make a plan and contact insurance on Wednesday since this is the weekend. Plan: SW to follow closely with pt and family to determine safe d/c plan of home with HH and possible private pay caregivers vs private pay SNF. JORGE Brewer Discharge Planning/Care Management CM Discharge Assessment Start: 01/08/18 15:17 Freq: Status: Active Protocol: Document 01/08/18 15:17 [facility] (Rec: 01/08/18 15:20 [facility] [id number]) Discharge Planning Assessment Assigned Bilingual Sales Consultant DISTRICT LEADER History Provided By Patient Family Member Medical Record Has Patient been admitted in last 30 No days? Is this patient on Medicare? Yes Is the admit diagnosis the same? Yes Comment Initially outpt with bed and changed to Obs Status Prior Living Arrangements Apartment/Condo Household Members children Type of transporation used prior to Relies on Others admit Comment Pt has support from her local son and dtr Independent with ADL's Yes: mostly Is patient alert and oriented? Yes Needs Assistance With Home Chores / Shopping Caregiver for Another No Patient Discharge Plan Description [facility] Needed at Discharge Physical Therapy Occupational Therapy Home Health Aid Home Health Nurse Comment Patient wanting SNF rehab at [facility] but not Inpt Status and likely not able to Private pay snf Discharge Plan Home with Home Health Transportation Arrangement Patient's Dtr and son can provide transport unless pt goes to private pay SNF If Pt is MCR-Have 3 Inpt. midnights been No: OBS Status confirmed with UR? Review Status In Process Next Review Type Discharge Review
--- NOTE | 2018-01-08 15:30 | PT.IPTN ---
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 Weight Bearing Status Weight Bearing Status Non-Weight Bearing Allowed Weight Bearing Amount (enter % NWB RLE or #) (%) M3 PT-IP Subjective Start: 01/07/18 16:01 Freq: NEEDED Status: Active Protocol: Document 01/08/18 15:30 [facility] (Rec: 01/08/18 16:02 [facility] [email or web address]) Subjective Physical Therapy Visit Type Type Treatment Note Visit Start Time 15:00 Visit Stop Time 15:30 Total Visit Minutes 30 Number of MARINE TOWER OPERATOR Visits 0 Physical Therapy Visit Comments Patient Comments Pt wants to try to go out of the room. She does not want to try the knee scooter, she feels it is too dangerous for her given her h/o falls. M4 PT-IP Mobility and Gait Start: 01/07/18 16:01 Freq: NEEDED Status: Active Protocol: Document 01/08/18 15:30 [facility] (Rec: 01/08/18 16:02 [facility] [email or web address]) PT-Bed Mobility Assessment Supine to Sit Supine to Sit Independent Scooting Scooting to Edge of Bed Independent Scooting Up and Down in Bed Independent PT-Transfer Assessment Sit to and From Stand Sit to and from Stand Independent Equipment Transfer Assistive Device Gait Belt Front Wheeled Walker Transfers Transfer Destination Chair Transfer Technique Stand Step Pivot Transfer Ability Level of Assist Standby Assistance Comments Mobility Comments NWB RLE, able to maintain throughout. Gait Assessment Gait Gait Assistance Required: Standby Assistance Distance (Feet) (feet) 80 Able to Maintain Weight Bearing Status Yes During Gait Assistive Devices Assistive Device Gait Belt Front Wheeled Walker Factors Limiting Gait Function Factors Limiting Gait Function Decreased Activity Tolerance Pain Comments Gait Comments hopping with LLE only, maintained NWB RLE. PT-Balance Assessment Sitting Balance and Reactions Static Sitting Balance Ability Good Dynamic Sitting Balance Ability Good Standing Balance and Reactions Static Standing Balance Ability Good Dynamic Standing Balance Ability Fair Device Used FWW M6 PT-IP Treatment Start: 01/07/18 16:01 Freq: NEEDED Status: Active Protocol: Document 01/08/18 15:30 [facility] (Rec: 01/08/18 16:02 [facility] [email or web address]) Physical Therapy Treatment Education Education Provided Weight Bearing Status Safety M7 PT-IP Assessment and Plan Start: 01/07/18 16:01 Freq: NEEDED Status: Active Protocol: Document 01/08/18 15:30 [facility] (Rec: 01/08/18 16:02 [facility] [email or web address]) PT Summary Assessment and Plan Summary Progress Towards Goals Progressing Toward Goals Assessment Summary Pt able to perform safe gait out of the room this afternoon , with swing-to pattern using the LLE only in WB. She maintained her NWB status throughout the entire session. She was fatigued but demonstrated good technique and only slight imbalance but able to self-correct without WB on the RLE. Pt is likely not a good candidate for a knee scooter given her h/o falls and fear of using the device, likely would be more safe using FWW and transport chair with assistance. If they are able to obtain 24/7 assistance, she may go home but if not she would benefit from SNF rehabilitation until she improves her functional independence. Goals Bed Mobility Goal Standby Assistance Transfer Goal Standby Assistance Gait Goal Standby Assistance Front Wheel Walker Gait Distance 20 Other Goals modified indep. management of knee scooter without cuing. Days to Meet Goals 3 Frequency of Treatment Frequency Of Treatment Twice a Day Treatment Plan Other Recommendations and Next Treatment gait, CG training Focus Recommendations To Nursing Amount of Assist Needed 1 Person Assist Discharge Recommendations PT Discharge Recommendations SNF Rehab Other Discharge Recommendations SNF vs. home with 24/7 and
--- NOTE | 2018-01-08 16:11 | OT.IP.TRT ---
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 Pt having trouble working her phone and with word finding, nursing notified . To try OT eval again Wednesday when OT next available.
[2018-01-08] MEDS: BACLOFEN 10 MG TABLET PO (20:04)
[2018-01-08] MEDS: LOSARTAN 25 MG TABLET PO (20:04)
[2018-01-08] MEDS: NITROGLYCERIN 0.4 MG SL TAB SL ×2 (21:01→21:15)
--- NOTE | 2018-01-08 21:04 | PC.NURSE ---
Addendum entered by Marjan Cruz R.N. 01/08/18 22:14: troponin level WNL. next troponin lab due at 0400 Original Note: Addendum entered by Marjan Cruz R.N. 01/08/18 22:02: s/p nitro administration, pt appeared to be resting comfortably in bed, however when wakened and asked about chest pain, pt states no relief. VS remains WNL, pt remains in no acute distress and resting comfortably in bed. another PRN nitro dose administered and pt states still no relief of chest pain. Dr. Ratliff notified. Received order for EKG and to consult hospitalist. EKG shows SR with occasional premature complexes. Dr. Mcpherson notified of consult and EKG results. Received order for check troponin lab and recheck within 6 hours if normal, and 1 time dose of 4mg IV morphine. pt updated on plan of care, still appears to be resting comfortably in bed but continues to state no relief of chest pain. Administered morphine and pt now appears to be sleeping comfortably. still awaiting troponin lab results. call light within reach. Original Note: SHIFT NOTE A&Ox3, pt seems slightly forgetful compared to yesterday evening. pt requesting PRN oxycodone Q3H for L hip, R foot and low back pain. at approximately 2100 pt stating 8/10 tightness and chest pain to L chest area. pt appears relaxed and comfortable in no acute distress, VS WNL. 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 PRN nitro administered with immediate relief of chest pain reported. pt appears to be resting comfortably. call light within reach.
[2018-01-08] MEDS: MORPHINE 4 MG/ML INJ IV (21:56)
[2018-01-08 22:12] LABS: Troponin I < 0.012 ng/mL (0.01-0.034)
[2018-01-09] VITALS (9 sets, daily range): BP systolic 127–183; BP diastolic 76–92; PULSE 66–99; RESP 16–18; TEMP 36.2–36.9; O2SAT 96–98
[2018-01-09] MEDS: OXYCODONE IR 5 MG TABLET PO ×8 (00:48→23:45)
[2018-01-09] MEDS: DEXAMETHASONE 4 MG TABLET PO ×3 (04:03→19:22)
[2018-01-09 04:53] LABS: Troponin I < 0.012 ng/mL (0.01-0.034)
[2018-01-09] MEDS: LEVOTHYROXINE 112 MCG TABLET PO (07:12)
[2018-01-09] MEDS: NITROGLYCERIN 0.4 MG SL TAB SL (08:10)
[2018-01-09] MEDS: ASPIRIN EC 81 MG TABLET PO (09:16)
[2018-01-09] MEDS: SUCRALFATE 1 GM TABLET PO ×4 (09:16→20:25)
[2018-01-09] MEDS: DOCUSATE 100 MG CAPSULE PO ×2 (09:16→20:26)
[2018-01-09] MEDS: VORTIOXETINE 15 EACH PO (09:16)
[2018-01-09] MEDS: SODIUM CHLORIDE 0.9% FLUSH 10 ML IV ×2 (09:17→20:27)
[2018-01-09] MEDS: HYDROCORTISONE 10 MG TABLET 30 MG PO ×2 (09:19→20:26)
[2018-01-09] MEDS: PANTOPRAZOLE 40 MG TABLET PO ×2 (09:30→20:26)
--- NOTE | 2018-01-09 10:07 | PM.PNPO.1 ---
Subjective Date Patient Seen: 01/09/18 Time Patient Seen: 10:07 Interval history: Patient is seen postop day 2 1st MT P fusion and lesser toe procedures by Dr. López. Patient is doing reasonably well but still having moderate foot pain. She complained of some chest pain during the night last night which was evaluated and the patient has remained stable without major complication. Exam Vital Signs (past 8 hours): - 01/09/18 05:19 01/09/18 08:10 01/09/18 08:24 Temperature 97.4 F L 98.0 F Pulse Rate 70 71 71 Respiratory Rate 16 18 Blood Pressure 152/76 H 183/92 H 183/92 H Pulse Oximetry 96 96 01/09/18 08:25 Temperature Pulse Rate 82 Respiratory Rate Blood Pressure 146/89 H Pulse Oximetry Fraction of Inspired Oxygen 21 Oxygen Delivery Method Room Air Oxygen Flow Rate 0 Narrative Exam Narrative: Patient's foot remains neurovascularly intact splint is dry and intact. 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
--- NOTE | 2018-01-09 12:02 | PT.IPTN ---
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 Weight Bearing Status Weight Bearing Status Non-Weight Bearing Allowed Weight Bearing Amount (enter % NWB RLE or #) (%) M3 PT-IP Subjective Start: 01/07/18 16:01 Freq: NEEDED Status: Active Protocol: Document 01/09/18 11:24 CLB (Rec: 01/09/18 12:01 CLB [id number]) Subjective Physical Therapy Visit Type Type Treatment Note Visit Start Time 11:24 Visit Stop Time 11:47 Total Visit Minutes 23 Number of PUBLIC IMPROVEMENT INSPECTOR Visits 1 Physical Therapy Visit Comments Patient Comments Pt wants me to tell her daughter she can't use the knee scooter. Therapy Pain Assessment Pain When Pain Assessed At Rest Pain Present Pain Present Pain Reported Location Right Foot Intensity 8 Scale Used Numeric (1 - 10) M4 PT-IP Mobility and Gait Start: 01/07/18 16:01 Freq: NEEDED Status: Active Protocol: Document 01/09/18 11:24 CLB (Rec: 01/09/18 12:01 CLB [id number]) PT-Transfer Assessment Sit to and From Stand Sit to and from Stand Independent Equipment Transfer Assistive Device Gait Belt Front Wheeled Walker Transfers Transfer Destination Chair Transfer Technique after ambulation Transfer Ability Level of Assist Standby Assistance Comments Mobility Comments NWB RLE, able to maintain throughout. Gait Assessment Gait Gait Assistance Required: Standby Assistance Distance (Feet) (feet) 80 Able to Maintain Weight Bearing Status Yes During Gait Assistive Devices Assistive Device Gait Belt Front Wheeled Walker Factors Limiting Gait Function Factors Limiting Gait Function Decreased Activity Tolerance Pain Comments Gait Comments Pt uses FWW w/UE support while hopping on LLE. Pt able to maintain NWB of RLE during ambution. PT-Balance Assessment Sitting Balance and Reactions Static Sitting Balance Ability Good Dynamic Sitting Balance Ability Good Standing Balance and Reactions Static Standing Balance Ability Good Dynamic Standing Balance Ability Fair Device Used FWW M5 PT-IP Objective Assessments Start: 01/07/18 16:01 Freq: NEEDED Status: Active Protocol: Document 01/08/18 12:05 RCC (Rec: 01/08/18 13:28 RCC [id number]) Orientation Orientation/Cognition Level of Alertness Alert Orientation Name Age Birthday Month Date Year Day of Week Place Situation Safety Awareness Understands Safety Issues Strength Comments Strength Comments RLE weakness with hip flexion due to pain and extra bulk of splint. Coordination Assessment Gross Coordination Gross Coordination WNL Assessment Coordination Comments unable to test R ankle due to surgery. M6 PT-IP Treatment Start: 01/07/18 16:01 Freq: NEEDED Status: Active Protocol: Document 01/09/18 11:24 CLB (Rec: 01/09/18 12:01 CLB [id number]) Physical Therapy Treatment Education Education Provided Weight Bearing Status Safety M7 PT-IP Assessment and Plan Start: 01/07/18 16:01 Freq: NEEDED Status: Active Protocol: Document 01/09/18 11:24 CLB (Rec: 01/09/18 12:01 CLB [id number]) PT Summary Assessment and Plan Potential Rehabilitation Potential Excellent Status of Condition at Evaluation Stable Summary Impairments Pain ROM Strength Balance Bed Mobility Transfers Gait Activity Tolerance Progress Towards Goals Progressing Toward Goals Assessment Summary Pt able to maintain NWB with gait using FWW and LLE/UE. Pt needed cues for posture and gaze as well as not getting too close to front of walker. Pt does not want to use knee scooter but daughter insists she at least tries. Due to pt history of falls, FWW would be best option for pt safety at this time. If pt has 24 assist pt may go home but would benefit from SNF. Goals Bed Mobility Goal Standby Assistance Transfer Goal Standby Assistance Gait Goal Standby Assistance Front Wheel Walker Gait Distance 20 Other Goals modified indep. management of knee scooter without cuing. Days to Meet Goals 3 Frequency of Treatment Frequency Of Treatment Twice a Day Treatment Plan Other Recommendations and Next Treatment gait, CG training Focus Recommendations To Nursing Amount of Assist Needed 1 Person Assist Discharge Recommendations PT Discharge Recommendations SNF Rehab Other Discharge Recommendations SNF vs. home with 04/01 and
--- NOTE | 2018-01-09 14:07 | CM.DPC ---
DCP/Continued: Reviewed chart. Received verbal referral requesting LINEN GRADER meet with patient and daughter re: d/c plan. LINEN GRADER met with patient and daughter/Arleen at bedside explained role. Patient currently at [facility] under [facility] status for elective foot procedure that was performed on 01-07-18 by Orthopedics. Daughter reports that patient resides alone and needs too much assistance to return home. Daughter requesting that LINEN GRADER look into bed for patient at [facility]. Notified patient and daughter that patient's insurance does not cover room/board at [facility]. Daughter believes that patient's secondary F plan through [employer] might? Notified patient and daughter that LINEN GRADER would fax insurance information and clinical to [facility] for review. Patient aware that if secondary plan does not cover room/board at [facility] she will be responsible. Both patient and daughter aware and agreeable to privately pay for short amount of time if needed. Placed call to [facility] spoke with fabiana/Malia. She is requesting all information be faxed. She will discuss with Estefania in admit and they will check with Nadege in AM. P: Anticipate d/c to [facility] for short amount of time prior to returning home alone. Patient needs to be able to get in/out of bed on her own and perform basic ADL's before returning home. Patient and daughter aware that this most likely will be private pay for room/board. Following closely. JORGE Muniz
--- NOTE | 2018-01-09 14:25 | PT.IPTN ---
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 Weight Bearing Status Weight Bearing Status Non-Weight Bearing Allowed Weight Bearing Amount (enter % NWB RLE or #) (%) M3 PT-IP Subjective Start: 01/07/18 16:01 Freq: NEEDED Status: Active Protocol: Document 01/09/18 13:35 CLB (Rec: 01/09/18 14:25 CLB [id number]) Subjective Physical Therapy Visit Type Type Treatment Note Visit Start Time 13:35 Visit Stop Time 14:05 Total Visit Minutes 30 Number of PRODUCT SUPPORT TECHNICIAN Visits 2 Physical Therapy Visit Comments Patient Comments Pt wants to go to SNF rehab because she feels unsafe to go home. Therapy Pain Assessment Pain When Pain Assessed At Rest Pain Present Pain Present Pain Reported Location Right Foot Intensity 8 Scale Used Numeric (1 - 10) M4 PT-IP Mobility and Gait Start: 01/07/18 16:01 Freq: NEEDED Status: Active Protocol: Document 01/09/18 13:35 CLB (Rec: 01/09/18 14:25 CLB [id number]) PT-Bed Mobility Assessment Sit to Supine Sit to Supine Minimal Assistance PT-Transfer Assessment Sit to and From Stand Sit to and from Stand Independent Equipment Transfer Assistive Device Gait Belt Front Wheeled Walker Transfers Transfer Destination Bed Transfer Technique after ambulation Transfer Ability Level of Assist Standby Assistance Comments Mobility Comments NWB RLE, able to maintain throughout. Gait Assessment Gait Gait Assistance Required: Contact Guard Assist Distance (Feet) (feet) 100 Able to Maintain Weight Bearing Status Yes During Gait Assistive Devices Assistive Device Gait Belt Front Wheeled Walker Factors Limiting Gait Function Factors Limiting Gait Function Decreased Activity Tolerance Pain Comments Gait Comments Pt continues to maintain NWB of RLE but needed CGA for minor posterior lean at times during gait. PT-Balance Assessment Sitting Balance and Reactions Static Sitting Balance Ability Good Dynamic Sitting Balance Ability Good Standing Balance and Reactions Static Standing Balance Ability Good Dynamic Standing Balance Ability Fair Device Used FWW M5 PT-IP Objective Assessments Start: 01/07/18 16:01 Freq: NEEDED Status: Active Protocol: Document 01/08/18 12:05 RCC (Rec: 01/08/18 13:28 RCC [id number]) Orientation Orientation/Cognition Level of Alertness Alert Orientation Name Age Birthday Month Date Year Day of Week Place Situation Safety Awareness Understands Safety Issues Strength Comments Strength Comments RLE weakness with hip flexion due to pain and extra bulk of splint. Coordination Assessment Gross Coordination Gross Coordination WNL Assessment Coordination Comments unable to test R ankle due to surgery. M6 PT-IP Treatment Start: 01/07/18 16:01 Freq: NEEDED Status: Active Protocol: Document 01/09/18 11:24 CLB (Rec: 01/09/18 12:01 CLB [id number]) Physical Therapy Treatment Education Education Provided Weight Bearing Status Safety M7 PT-IP Assessment and Plan Start: 01/07/18 16:01 Freq: NEEDED Status: Active Protocol: Document 01/09/18 13:35 CLB (Rec: 01/09/18 14:25 CLB [id number]) PT Summary Assessment and Plan Potential Rehabilitation Potential Excellent Status of Condition at Evaluation Stable Summary Impairments Pain ROM Strength Balance Bed Mobility Transfers Gait Activity Tolerance Progress Towards Goals Progressing Toward Goals Assessment Summary Pt needed CGA with gait due to minor posterior lean as pt was trying to advance LLE. Pt would benefit from SNF rehab for continued gait training for safety and advance functional independence. Goals Bed Mobility Goal Standby Assistance Transfer Goal Standby Assistance Gait Goal Standby Assistance Front Wheel Walker Gait Distance 20 Days to Meet Goals 3 Frequency of Treatment Frequency Of Treatment Twice a Day Treatment Plan Other Recommendations and Next Treatment gait, CG training Focus Recommendations To Nursing Amount of Assist Needed 1 Person Assist Discharge Recommendations PT Discharge Recommendations SNF Rehab Other Discharge Recommendations SNF vs. home with 04/01 and HH
--- NOTE | 2018-01-09 14:48 | PC.NURSE ---
1445 Pt resting in bed, eyes closed, even resp noted. RLE up on pillow. Pt up in ibarra for ambulation w/PT. Pt took oxycodone 5mg for pain mngmnt, w/good results. Pt is oriented x 3, voids per BSC, taking in po diet w/o diff. Dtr did come visit this shift. Pt able to make her needs known, uses call light appropriately.
--- NOTE | 2018-01-09 16:08 | P.CONS_ITS ---
History of Present Illness Date Patient Seen: 01/09/18 Time Patient Seen: 15:30 Chief complaint: *OPB*metatarsal phalangeal joint fusion etc notes Reason for consult: Chest pain Requesting provider: Anoop Ratliff Narrative: 72-year-old female who was electively admitted to the [facility] 3 days ago for right foot surgery by Dr. López. She has known coronary artery disease. 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 She started having chest pain yesterday evening. She described the pain as a spasm on the left side of her anterior chest. The severity of the pain was initially 8/10. The chest pain did not improve with sublingual nitroglycerin. EKG did not show ST-T changes. She was given 4 mg of IV morphine and the pain subsequently resolved. She has not had recurrent chest pain since then. 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) Depression (Acute) Diarrhea (Acute) Diverticulosis (Acute) Dyspnea on exertion (Acute) Fall (Acute) Femur fracture (Acute) GERD (gastroesophageal reflux disease) (Acute) GI bleed (Acute ~12/11/17) Generalized headaches (Acute) Generalized weakness (Acute) Hallux valgus (acquired), right foot (Acute) Hammer toe of right foot (Acute ~10/25/17) Head injury (Acute) Hiatal hernia (Acute) Hip fracture (Acute) History of UTI (Acute) History of colitis (Acute) History of confusion (Acute) History of headache (Acute) History of hysterectomy (Acute) History of ulcer disease (Acute) Hyperthyroidism, subclinical (Acute) Hypokalemia (Acute) Hypotension (Acute) Hypothyroidism (Acute) Impaired vision (Acute) Incontinence (Acute) Myocardial infarction (Acute) Nausea (Acute) Nausea & vomiting (Acute) Opioid dependence (Acute) Ovarian cancer (Acute) PTSD (post-traumatic stress disorder) (Acute) Pneumonia (Acute) Right foot pain (Acute) Sepsis (Acute) Septic joint of left knee joint (Acute) Sialadenitis (Acute) Sleep apnea (Acute) Urinary incontinence (Acute) Surgical History History of Radhika fundoplication (Acute) History of arthroplasty of both knees (Acute) History of bilateral oophorectomies (Acute) History of bladder surgery (Acute) History of colonoscopy with polypectomy (Acute) History of coronary artery stent placement (Acute) History of esophagogastroduodenoscopy (EGD) (Acute) History of tonsillectomy (Acute) History of total right hip arthroplasty (Acute) Hx of appendectomy (Acute) Hx of cardiac cath (Acute ~2012) Hx of total knee arthroplasty (Acute) S/P surgical manipulation of ankle joint (Acute) Social History household members: children Smoking Status: Never smoker Comment: She is . Her about 5 years ago. She denies alcohol drinking or cigarette smoking Family history: Noncontributory Meds Home Medications Medication Instructions Recorded Confirmed Type NITROGLYCERIN (Nitrostat) 0.4 mg SUBLINGUAL PRN PRN #0 04/11/10 01/07/18 History baclofen 10 mg PO HS #0 10/11/16 01/07/18 History aspirin 81 mg PO QDAY #0 10/12/16 01/07/18 History oxycodone 10 mg PO Q6H PRN #0 10/12/16 01/07/18 History clopidogrel [Plavix] 75 mg PO HS #0 05/07/17 01/07/18 History bisacodyl [Fleet Laxative] 13 tab PO QDAYP PRN #0 05/12/17 01/07/18 History diphenhydramine HCl [Benadryl 25 mg PO HSP PRN #0 09/17/17 01/07/18 History Allergy] hydrocortisone 30 mg PO BID #0 09/17/17 01/07/18 History multivitamin [Multiple Vitamins] 1 tab PO QDAY #0 09/17/17 01/07/18 History pantoprazole 40 mg PO BID #0 09/17/17 01/07/18 History levothyroxine 112 mcg PO QDAY 10/25/17 01/07/18 History losartan 25 mg PO QHS 10/25/17 01/07/18 History sucralfate 1 g PO QID 10/25/17 01/07/18 History vortioxetine 15 mg PO DAILY 12/29/17 01/07/18 History Allergies Allergy/AdvReac Type Severity Reaction Status Date / Time Sulfa (Sulfonamide Allergy Intermediate BLISTERS, Verified 01/07/18 09:02 Antibiotics) Hives latex [LATEX] Allergy Mild RASH Verified 01/07/18 09:02 cefaclor Allergy Unknown PT DOES Verified 01/07/18 09:02 NOT REMEMBER ceftriaxone Allergy Unknown PT DOES Verified 01/07/18 09:02 NOT REMEMBER doxycycline [DOXYCYCLINE] Allergy Unknown UNK Verified 01/07/18 09:02 formaldehyde [FORMALDEHYDE] Allergy Unknown UNK Verified 01/07/18 09:02 levofloxacin Allergy Unknown SWELLING, Verified 01/07/18 09:02 edema penicillin G Allergy Unknown my throat Verified 01/07/18 09:02 tightens up, Hives strawberry Allergy Unknown RASH Verified 01/07/18 09:02 terbinafine Allergy Unknown unknown Verified 01/07/18 09:02 terfenadine Allergy Unknown Rash Verified 01/07/18 09:02 trazodone [TRAZODONE] Allergy Unknown Edema Verified 01/07/18 09:02 epinephrine AdvReac Severe PASSED OUT Verified 01/07/18 09:02 prednisone AdvReac Severe FEELS LIKE Verified 01/07/18 09:02 SKIN ON FIRE, Rash zolpidem AdvReac Severe HALLUCINATI Verified 01/07/18 09:02 ONS alprazolam AdvReac Mild forgetfulness, Verified 01/07/18 09:02 hallucinati- IS OK WITH LORAZEPAM & TEMAZEPAM adhesive AdvReac Unknown PAPER TAPE Verified 01/07/18 09:02 OK OTHERS? gabapentin AdvReac Unknown Verified 01/07/18 09:02 procaine AdvReac Unknown (NOVACAINE) Verified 01/07/18 09:02 Edema Review of Systems Constitutional Comments: No fever chills or sweats Cardiovascular Cardiovascular: Reports as per HPI Respiratory Comments: Denies cough Gastrointestinal Comments: No abdominal pain Genitourinary Comments: Denies dysuria Neurologic Comments: No headache Exam Vital Signs (past 8 hours): - 01/09/18 08:10 01/09/18 08:24 01/09/18 08:25 Temperature 98.0 F Pulse Rate 71 71 82 Respiratory Rate 18 Blood Pressure 183/92 H 183/92 H 146/89 H Pulse Oximetry 96 01/09/18 13:46 Temperature 98.0 F Pulse Rate 99 H Respiratory Rate 18 Blood Pressure 135/79 H Pulse Oximetry 96 Fraction of Inspired Oxygen 21 Oxygen Delivery Method Room Air Oxygen Flow Rate 0 Narrative Exam Narrative: GENERAL: Pleasant appearing middle-aged woman in no acute distress. HEENT: Head normocephalic, atraumatic. Eyes pupils equal round NECK: Supple, no JVD, CHEST: Breath sounds equal bilaterally, no wheezes rales or rhonchi. CARDIAC: Regular rate and rhythm without murmurs, rubs or gallops. ABDOMEN: Soft, nontender. Normoactive bowel sounds all 4 quadrants. No guarding or rebound. EXTREMITIES: Right foot and right lower leg was dressed in dressing and splint NEUROLOGICAL: Alert and oriented; Normal muscle strength. SKIN: Warm, dry, no petechiae, no rashes or lesions. Objective Labs Result Diagrams: 01/08/18 05:15 Labs: Laboratory Results - last 24 hr 01/08/18 01/09/18 21:41 04:19 Troponin I < 0.012 < 0.012 Assessment & Plan Plan: Assessment/Plan Narrative: 1. Chest pain: She was ruled out for TX with 2 negative troponins. Her EKG also did not reveal acute ST-T changes. She does have known coronary artery disease. We will continue her outpatient medications, including losartan. She was noticed to have relatively fast pulse up to 99. I will start her on low- dose metoprolol for cardio protection. Continue baby aspirin. Use sublingual nitroglycerin as needed for chest pain. Okay to continue using morphine IV if her chest pain does not improve with sublingual nitro. 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 She is also on Decadron IV for lumbar radiculopathy. Her blood pressure is stable. 3. GERD: Continue Protonix 4. Hypothyroidism: Continue levothyroxine per outpatient dosing 5. History of stroke with memory loss: She is at her baseline.
[2018-01-09] MEDS: METOPROLOL 25 MG TABLET PO (17:02)
[2018-01-09] MEDS: BACLOFEN 10 MG TABLET PO (20:25)
[2018-01-09] MEDS: LOSARTAN 25 MG TABLET PO (20:26)
[2018-01-10] VITALS (7 sets, daily range): BP systolic 123–174; BP diastolic 74–103; PULSE 64–84; RESP 16–20; TEMP 36.1–36.7; O2SAT 95–98
[2018-01-10] MEDS: OXYCODONE IR 5 MG TABLET PO ×7 (02:48→23:41)
[2018-01-10] MEDS: DEXAMETHASONE 4 MG TABLET PO ×3 (02:49→20:53)
[2018-01-10] MEDS: LEVOTHYROXINE 112 MCG TABLET PO (06:05)
--- NOTE | 2018-01-10 07:19 | PM.PNPO.1 ---
Subjective Date Patient Seen: 01/10/18 Time Patient Seen: 07:15 Interval history: Patient seen bedside status post right Elizabeth osteotomy hammertoe correction of the 2nd toe. She is doing well however she is complaining of radiculopathy down the contralateral leg. She would like to go to SNF however she is outpatient status. She may have help at home from her daughter however this is not 100%. She was worked up yesterday for PA due to chest pain but troponins were negative x2. Exam Vital Signs (past 8 hours): - 01/09/18 23:43 01/10/18 05:35 Temperature 97.2 F L 96.9 F L Pulse Rate 73 74 Respiratory Rate 16 16 Blood Pressure 153/84 H 156/92 H Pulse Oximetry 96 95 Fraction of Inspired Oxygen 21 Oxygen Delivery Method Room Air Oxygen Flow Rate 0 Narrative Exam Narrative: Patient well-developed well-nourished in no acute distress. Patient alert oriented. Examination of her right leg shows that she is neurovascularly intact with K-wires in the 2nd toe. Calf is soft and compressible. Patient is at baseline neurologically. Objective Labs Result Diagrams: 01/08/18 05:15 Assessment & Plan Post-op (1) Hammer toe, acquired: Problem details: Patient is postop day 3. Status post the below procedure. She is doing well, however, she needs either a SNF or home health with 24 hr supervision as previous stroke makes her unstable. She will likely be nonweightbearing for 6 weeks as she will probably be unable heel weight-bearing due to baseline unsteadiness. Workup for chest pain yesterday was negative for PA. Discharge pending determination of vs. SNF. Current Visit: No Status: Acute Postoperative Procedures Operation Date: 01/07/18 10:45 Actual Procedures Side Surgeon p 1st MTPJ Fusion Right Christy López MD s Correction of 2nd Toe Crossover and Hammertoe Right Christy López MD s Capsulotomy, MTPJ Right Christy López MD s Poss Elizabeth Osteotomy 2nd Metatarsal Right Christy López MD Time Spent With Patient less than 15 minutes Quality VTE Deep Vein Thrombosis/Pulmonary Embolism Present on Admission: No
[2018-01-10] MEDS: VORTIOXETINE 15 EACH PO (07:54)
[2018-01-10] MEDS: PANTOPRAZOLE 40 MG TABLET PO ×2 (07:55→20:53)
[2018-01-10] MEDS: DOCUSATE 100 MG CAPSULE PO ×2 (07:55→20:53)
[2018-01-10] MEDS: HYDROCORTISONE 10 MG TABLET 30 MG PO (07:55)
[2018-01-10] MEDS: METOPROLOL ER 50 MG TABLET PO (07:55)
[2018-01-10] MEDS: SUCRALFATE 1 GM TABLET PO ×4 (07:56→20:52)
[2018-01-10] MEDS: ASPIRIN EC 81 MG TABLET PO (07:56)
[2018-01-10] MEDS: SODIUM CHLORIDE 0.9% FLUSH 10 ML IV ×2 (07:58→20:52)
--- NOTE | 2018-01-10 11:04 | PT.IPTN ---
Current Diagnoses Hallux valgus (acquired), right foot (01/07/18) Other hammer toe(s) (acquired), unspecified foot (01/07/18) Other deformities of toe(s) (acquired), right foot (01/07/18) Radiculopathy, lumbar region (01/07/18) Surgery Performed Operation Date: 01/07/18 10:45 Actual Procedures p 1st MTPJ Fusion(Right) - Christy López MD s Correction of 2nd Toe Crossover and Hammertoe(Right) - Christy López MD s Capsulotomy, MTPJ(Right) - Christy López MD s Poss Elizabeth Osteotomy 2nd Metatarsal(Right) - Christy López MD Physical Therapy Treatment Note M2 PT-IP Current Condition Start: 01/07/18 16:01 Freq: NEEDED Status: Active Protocol: Document 01/08/18 12:05 RCC (Rec: 01/08/18 13:28 RCC [id number]) Physical Therapy Current Condition Current Condition Evaluation Date 01/08/18 Treatment Diagnosis R foot surgery, impaired mobility Onset Date 01/07/18 Precautions Other Precautions NWB for 3 weeks, then will be casted @ wk 3 and then may WB through heel only if healing well. Weight Bearing Status Weight Bearing Status Non-Weight Bearing Allowed Weight Bearing Amount (enter % NWB RLE or #) (%) M3 PT-IP Subjective Start: 01/07/18 16:01 Freq: NEEDED Status: Active Protocol: Document 01/10/18 10:30 CLB (Rec: 01/10/18 11:04 CLB [id number]) Subjective Physical Therapy Visit Type Type Treatment Note Visit Start Time 10:30 Visit Stop Time 10:55 Total Visit Minutes 25 Number of RIDING INSTRUCTOR Visits 3 Physical Therapy Visit Comments Patient Comments Pt agreeable to ambulate. Therapy Pain Assessment Pain When Pain Assessed At Rest Pain Present Pain Present Pain Reported Location Right Foot Intensity 8 Scale Used Numeric (1 - 10) M4 PT-IP Mobility and Gait Start: 01/07/18 16:01 Freq: NEEDED Status: Active Protocol: Document 01/10/18 10:30 CLB (Rec: 01/10/18 11:04 CLB [id number]) PT-Transfer Assessment Sit to and From Stand Sit to and from Stand Independent Contact Guard Assistance Equipment Transfer Assistive Device Gait Belt Front Wheeled Walker Transfers Transfer Destination Chair Transfer Technique Stand Pivot Transfer Ability Level of Assist Standby Assistance Comments Mobility Comments NWB RLE, able to maintain throughout. Gait Assessment Gait Gait Assistance Required: Contact Guard Assist Distance (Feet) (feet) 100 Able to Maintain Weight Bearing Status Yes During Gait Assistive Devices Assistive Device Gait Belt Front Wheeled Walker Factors Limiting Gait Function Factors Limiting Gait Function Decreased Activity Tolerance Pain Comments Gait Comments Pt ambulated while maintaining NWB of RLE, pt had no posterior lean or LOB this session. PT-Balance Assessment Sitting Balance and Reactions Static Sitting Balance Ability Good Dynamic Sitting Balance Ability Good Standing Balance and Reactions Static Standing Balance Ability Good Dynamic Standing Balance Ability Fair Device Used FWW M5 PT-IP Objective Assessments Start: 01/07/18 16:01 Freq: NEEDED Status: Active Protocol: Document 01/08/18 12:05 RCC (Rec: 01/08/18 13:28 RCC [id number]) Orientation Orientation/Cognition Level of Alertness Alert Orientation Name Age Birthday Month Date Year Day of Week Place Situation Safety Awareness Understands Safety Issues Strength Comments Strength Comments RLE weakness with hip flexion due to pain and extra bulk of splint. Coordination Assessment Gross Coordination Gross Coordination WNL Assessment Coordination Comments unable to test R ankle due to surgery. M6 PT-IP Treatment Start: 01/07/18 16:01 Freq: NEEDED Status: Active Protocol: Document 01/09/18 11:24 CLB (Rec: 01/09/18 12:01 CLB [id number]) Physical Therapy Treatment Education Education Provided Weight Bearing Status Safety M7 PT-IP Assessment and Plan Start: 01/07/18 16:01 Freq: NEEDED Status: Active Protocol: Document 01/10/18 10:30 CLB (Rec: 01/10/18 11:04 CLB [id number]) PT Summary Assessment and Plan Potential Rehabilitation Potential Excellent Status of Condition at Evaluation Stable Summary Impairments Pain ROM Strength Balance Bed Mobility Transfers Gait Activity Tolerance Progress Towards Goals Progressing Toward Goals Assessment Summary Pt felt dizzy after 70ft and needed to sit. Seated BP 109/ 109, pt was then transfered to recliner chair CGA, seated BP 109/104, O2 sat 97%. Left pt in care of Nrsing. Goals Bed Mobility Goal Standby Assistance Transfer Goal Standby Assistance Gait Goal Standby Assistance Front Wheel Walker Gait Distance 20 Days to Meet Goals 3 Frequency of Treatment Frequency Of Treatment Twice a Day Treatment Plan Other Recommendations and Next Treatment gait Focus Recommendations To Nursing Amount of Assist Needed 1 Person Assist Discharge Recommendations PT Discharge Recommendations SNF Rehab
--- NOTE | 2018-01-10 11:08 | PC.NURSE ---
PT WITH RIGHT FOOT IN HEAVY SPLINT TOES WITH WIRES VISIBLE- AMBULATING WITH PT, OTHERWISE TRANSFERS TO BSC/CHAIR WITH ASSIST- COMPLAINT WITH WEIGHT BEARING CONSTRAINTS TO THE SURGICAL FOOT- PLAN FOR D/C TO [facility] - CONTINUES TO REQUEST 5MG OXYCODONE Q 3 HOURS AND ASKS TO BE WOKEN UP TO MEDICATE- EXPLAINED THAT THIS WOULD NOT BE HAPPENING
--- NOTE | 2018-01-10 11:45 | P.PN_ITS ---
Subjective Date Patient Seen: 01/10/18 Time Patient Seen: 14:46 Interval history: History of present illness Hospitalist team is consulting on patient for surgeon. 72-year-old female electively admitted to the [facility] four days ago for right foot surgery by Dr. López. Patient with history of coronary artery disease. She and muscle spasms secondary to Manpreet's disease. Patient had chest pain in evening on January 08. The pain is described as a spasm to the left side of chest with pain severity of 8/10. The chest pain did not resolve nor improve with sublingual nitroglycerin. There were no ST-T changes on EKG. Patient was given 4 mg of IV morphine and the pain subsequently resolved. There was no pain noted on January 09, as noted by Hospitalist rounding January 09. Today patient notes the same left-sided anterior wall chest pain at rest and atypical in presentation since onset at rest. Review of systems Patient notes the chest pain on the left side of the chest as similar noted in evening on January 08. No radiation of the pain. Patient also feels a flushing to the face. Patient notes that she has been having similar episodes for the past 3-4 months. Patient also notes a headache sensation today as well. No nausea no shortness of breath Exam Vital Signs (past 8 hours): - 01/10/18 05:35 01/10/18 07:55 01/10/18 08:22 Temperature 96.9 F L 97.7 F Pulse Rate 74 84 Respiratory Rate 16 16 Blood Pressure 156/92 H 174/103 H 174/103 H Pulse Oximetry 95 95 Fraction of Inspired Oxygen 21 Oxygen Delivery Method Room Air Oxygen Flow Rate 0 Narrative Exam Narrative: Patient as noted is a very pleasant elderly female with mild distress primarily related to this chest discomfort. Const General: cooperative, healthy appearing, well developed, anxious and No diaphoretic Orientation: alert, awake and oriented x3 Eyes General: appearance normal, both eyes and all related structures Pupils: PERRL Chest Chest: normal inspection of the chest, normal palpation of entire chest wall and No localized rib tenderness with anteroposterior compression Resp Effort & Inspection: normal respiratory effort Auscultation: clear to auscultation bilaterally, no crackles and no wheezes Cardio Palpation: normal PMI Rate: regular rate Rhythm: regular rhythm GI Inspection: normal to inspection and non-distended Palpation: no hepatosplenomegaly, No guarding and No mass Percussion: normal to percussion Auscultation: normal bowel sounds Neuro General: alert, awake and oriented x3 Cranial Nerves: CN's II-XI intact bilaterally Speech: speech normal Motor: strength 5/5 throughout Sensory Exam: no sensory deficits noted Objective Labs Result Diagrams: 01/08/18 05:15 Assessment & Plan Plan: Assessment/Plan Narrative: 1. Chest pain: Patient ruled out for RI with 2 negative troponins. EKG also did not reveal acute ST-T changes. Patient with known coronary artery disease. Outpatient cardiac medications continued, including losartan. Since patient with pulse noted 99 beats per minute, a low-dose metoprolol for cardio protection was started and baby aspirin provided. Prn sublingual nitroglycerin for chest pain. Morphine sulfate IV if her chest pain does not improve with sublingual nitro. Note patient with reported high blood pressure today and can potentially cause chest pain in patient with CAD history. 2. [place]'s disease: Patient on Hydrocortisone at same outpatient dose and Decadron IV for lumbar radiculopathy. Blood pressure is high. Will stop the hydrocortisone while decadron is being provided. Patient may experience a dysphoria sensation and HTN from too much steroid therapy provided. Ideally, the dosing of hydrocortisone given with largest dose in morning, moderate dose at lunch and lesser dose in mid-afternoon to early evening most parallels physiologic steroid levels. For example, hydrocortisone 15 in morning, 10 mg at lunch and 5 mg at dinner time. 3. GERD: Protonix continued. 4. Hypothyroidism: Continue levothyroxine at same outpatient dose. 5. History of stroke with memory loss: Patient has been considered at her baseline cognitive function. Time spent to see patient: 25 minues. Quality VTE Deep Vein Thrombosis/Pulmonary Embolism Present on Admission: No
--- NOTE | 2018-01-10 12:46 | CM.DPC ---
Addendum entered by Adriana Humphries 01/10/18 15:11: Received return phone call from Estefania at [facility]. She reports that transport tentatively scheduled for 10:00AM tomorrow 01-11-18. 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 FLAVOR EXTRACTOR will attempt to obtain orders in AM so that transport does not need to be rescheduled. JORGE Muniz Original Note: DCP/continued: Reviewed chart. Spoke with Orthopedics DELLA/Cate this AM. Patient continues to require assistance for ADL's and family does not feel like patient is safe to d/c home alone. FLAVOR EXTRACTOR placed call to Estefania at [facility] and she reports that they have checked patient's secondary/supplemental insurance and patient does not have SNF benefit. Therefore, Estefania at [facility] reports that they can accept patient under private pay for room/board. Met with patient this AM and she is aware and agreeable. Also met with daughter/Arleen and she too is agreeable. Asked Estefania at [facility] to call Arleen to coordinate financial arrangements. Spoke again with Orthopedics and d/c anticipated for tomorrow in AM. Estefania at [facility] aware and will arrange transport. [facility] faxed. Will obtain final d/c orders in AM. P: [facility] for short stay before returning home alone. JORGE Muniz
[2018-01-10] MEDS: HYDROMORPHONE 2 MG INJ IV (13:30)
--- NOTE | 2018-01-10 15:15 | OT.IP.EVAL ---
Current Diagnoses Hallux valgus (acquired), right foot (01/07/18) Other hammer toe(s) (acquired), unspecified foot (01/07/18) Other deformities of toe(s) (acquired), right foot (01/07/18) Radiculopathy, lumbar region (01/07/18) Surgery Performed Operation Date: 01/07/18 10:45 Actual Procedures p 1st MTPJ Fusion(Right) - Christy López MD s Correction of 2nd Toe Crossover and Hammertoe(Right) - Christy López MD s Capsulotomy, MTPJ(Right) - Christy López MD s Poss Elizabeth Osteotomy 2nd Metatarsal(Right) - Christy López MD Past Medical History (Last Reviewed 01/09/18 @ 16:10 by Kirstie Mcpherson MD) [place] disease (Acute) Allergic rhinitis (Acute) Altered mental status (Acute) Anemia in other chronic diseases classified elsewhere (Acute) Anxiety (Acute) Aphasia (Acute) Arthritis (Acute) Asthma (Acute) Bowel obstruction (Acute ~2015) CAD (coronary artery disease) (Acute) CVA (cerebral vascular accident) (Acute) Cellulitis (Acute) Chronic chest pain (Acute) Chronic constipation (Acute) Chronic pain (Acute) Colonic disease (Acute) Contusion of right hand including fingers (Acute) 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) Depression (Acute) Diarrhea (Acute) Diverticulosis (Acute) Dyspnea on exertion (Acute) Fall (Acute) Femur fracture (Acute) GERD (gastroesophageal reflux disease) (Acute) GI bleed (Acute ~12/11/17) Generalized headaches (Acute) Generalized weakness (Acute) Hallux valgus (acquired), right foot (Acute) Hammer toe of right foot (Acute ~10/25/17) Head injury (Acute) Hiatal hernia (Acute) Hip fracture (Acute) History of UTI (Acute) History of colitis (Acute) History of confusion (Acute) History of headache (Acute) History of hysterectomy (Acute) History of ulcer disease (Acute) Hyperthyroidism, subclinical (Acute) Hypokalemia (Acute) Hypotension (Acute) Hypothyroidism (Acute) Impaired vision (Acute) Incontinence (Acute) Myocardial infarction (Acute) Nausea (Acute) Nausea & vomiting (Acute) Opioid dependence (Acute) Ovarian cancer (Acute) PTSD (post-traumatic stress disorder) (Acute) Pneumonia (Acute) Right foot pain (Acute) Sepsis (Acute) Septic joint of left knee joint (Acute) Sialadenitis (Acute) Sleep apnea (Acute) Urinary incontinence (Acute) Surgical History (Last Updated 12/29/17 @ 10:32 by Hilary Garcia RN) History of Radhika fundoplication (Acute) History of arthroplasty of both knees (Acute) History of bilateral oophorectomies (Acute) History of bladder surgery (Acute) History of colonoscopy with polypectomy (Acute) History of coronary artery stent placement (Acute) History of esophagogastroduodenoscopy (EGD) (Acute) History of tonsillectomy (Acute) History of total right hip arthroplasty (Acute) Hx of appendectomy (Acute) Hx of cardiac cath (Acute ~2013) Hx of total knee arthroplasty (Acute) S/P surgical manipulation of ankle joint (Acute) Occupational Therapy Inpatient Evaluation/Re-Eval M1 PT/OT-IP Prior Functional Status Start: 01/07/18 16:01 Freq: NEEDED Status: Active Protocol: Document 01/08/18 12:05 RCC (Rec: 01/08/18 13:28 RCC [id number]) Medical Review Prior Functional Status Medical History Reviewed Yes Diet/Fluid Consistency Regular Communication some hesitation occasionally with discussion but WNL Mobility and Gait modified indep. ambulator with occasional use of walker or cane. Activities of Daily Living and IADL's modified indep. ADLs Social History Household Members children Living Arrangements Apartment/Condo Number of Floors (Floors) One Floor Number of Stairs To Enter/Railing? ramped entry Home Environment Walk in Shower Tub/Shower Ramp Home Equipment Front Wheel Walker Four Wheel Walker Straight Cane Additional Social History Comment transport chair, knee scooter. Pt's son works during the day and daughter is only able to assist occasionally. Pt reports at least 7 previous falls, and expresses her concern for falling. M1 PT/OT-IP Prior Functional Status Start: 01/08/18 16:10 Freq: NEEDED Status: Active Protocol: Document 01/10/18 14:58 [facility] (Rec: 01/10/18 15:15 [facility] [id number]) Medical Review Prior Functional Status Medical History Reviewed Yes Diet/Fluid Consistency Regular Communication some hesitation occasionally with discussion but WNL Mobility and Gait modified indep. ambulator with occasional use of walker or cane. Activities of Daily Living and IADL's modified indep. ADLs Social History Household Members children Living Arrangements Apartment/Condo Number of Floors (Floors) One Floor Number of Stairs To Enter/Railing? ramped entry Home Environment Walk in Shower Tub/Shower Ramp Home Equipment Front Wheel Walker Four Wheel Walker Straight Cane Additional Social History Comment transport chair, knee scooter. Pt's son works during the day and daughter is only able to assist occasionally. Pt reports at least 7 previous falls, and expresses her concern for falling. M2 OT-IP Current Condition Start: 01/08/18 16:10 Freq: Status: Active Protocol: Document 01/10/18 14:58 [facility] (Rec: 01/10/18 15:15 [facility] [id number]) Occupational Therapy Current Condition Current Condition Evaluation Date 01/10/18 Treatment Diagnosis Hallux valgus foot sx Diagnosis Onset Date 01/08/18 Post Operative Precautions Other Precautions NWB for 3 weeks, then will be casted @ wk 3 and then may WB through heel only if healing well. Weight Bearing Status Weight Bearing Status Non-Weight Bearing Allowed Weight Bearing Amount (enter % NWB RLE or #) (%) M3 OT- IP Subjective and Pain Start: 01/08/18 16:10 Freq: Status: Active Protocol: Document 01/10/18 14:58 [facility] (Rec: 01/10/18 15:15 [facility] [id number]) OT- Subjective Occupational Therapy Visit Type Type Initial Evaluation Visit Start Time 14:10 Visit Stop Time 14:25 Total Visit Minutes 15 Notes Pt agreeable to get up and try to mount knee scooter with assist. Occupational Therapy Visit Comments Patient Comments Pt feels ready to go to skilled rehab tomorrow. OT Pain Assessment Pain When Pain Assessed At Rest Pain Present Pain Present Denied Pain M4 OT- IP ADL's Start: 01/08/18 16:10 Freq: Status: Active Protocol: Document 01/10/18 14:58 [facility] (Rec: 01/10/18 15:15 [facility] [id number]) OT ADL-Grooming General Evaluation Grooming Ability Standby Assistance Areas Needing Assistance Retrieving/Set-up of Grooming Items Comments OT Grooming Comments Able to do while at edge of bed. OT ADL-Dressing General Eval Lower Body Dressing Ability Maximum Assistance Comments OT Dressing Comments Due to NWB to RLE, unable to do any LB dressing for RLE. OT ADL-Toileting General Evaluation Toileting Ability Standby Assistance Contact Guard Assistance Comments OT Toileting Comments Per nursing CGA to BSC to transfer with FWW and able to maintain RLE NWB status. M6 OT- IP Functional Cognition Start: 01/08/18 16:10 Freq: Status: Active Protocol: Document 01/10/18 14:58 [facility] (Rec: 01/10/18 15:15 [facility] [id number]) Cognitive Factors Limiting Selfcare Function Cognitive Ability Level of Alertness Alert Patient Orientation Name Age Birthday Place Situation Attention Span Ability Capable of Focused Attention Capable of Sustained Attention Ability to Follow Commands Able to Follow One Step Commands Able to Follow Multi-Step Commands Memory Description Short Term Impaired Cognitive Comments Cognitive Assessment Comments [place] is her second language , pt has word finding difficulties. OT- Vision and Hearing OT- Hearing Assessment OT- Hearing Assessment WFL M7 OT- IP Mobility and Balance Start: 01/08/18 16:10 Freq: Status: Active Protocol: Document 01/10/18 14:58 [facility] (Rec: 01/10/18 15:15 [facility] [id number]) OT- Bed Mobility Assessment Rolling Type of Rolling Roll to Left Level of Assistance Standby Assistance Supine to Sit Supine to Sit Assist Standby Assistance Sit to Supine Sit to Supine Assist Minimal Assistance Scooting Scooting to Edge of Bed Standby Assistance Scooting Up and Down in Bed Standby Assistance OT-Transfer Assessment Sit to and From Stand Sit to and from Stand Standby Assistance Contact Guard Assistance Transfers Transfer Ability Standby Assistance Contact Guard Assistance Technique Transfer Destination Bed Transfer Technique Stand Step Pivot Devices Transfer Assistive Devices Gait Belt Front Wheeled Walker Comments Mobility Comments Pt at times needing assist to help lift RLE into and out of the bed, at times a little unsteady and needs CGA for balance. OT- Balance Assessment Sitting Balance and Reactions Static Sitting Balance Ability Normal Dynamic Sitting Balance Ability Normal M9 OT- IP Assessment and Plan Start: 01/08/18 16:10 Freq: Status: Active Protocol: Document 01/10/18 14:58 [facility] (Rec: 01/10/18 15:15 [facility] [id number]) OT Summary Assessment and Plan Potential Rehabilitation Potential Excellent Analytic Complexity at Evaluation Low Summary OT Impairments Functional Cognition Functional Mobility Dressing Toileting Bathing Toilet Transfers Shower Transfers Progress Towards Goals Progressing Toward Goals Slow Progress due to Activity Tolerance Slow Progress due to Cognition Assessment Summary Pt s/p 1st MPJ arthrodesis, 2nd toe,hammertoe repair with Elizabeth osteotomy and capsulotomy by Dr. López 01/07/18. Pt to be NWB to RLE x 3weeks and then cast, therefore pt requiring assist for especially safety for ADl needs. Pt is alone during the day and would benefit from skilled rehab prior to going home. Goals Dressing Goal Minimal Assistance Toileting Goal Independent Bathing Goal Minimal Assistance Toilet Transfer Goal Independent Shower Transfer Goal Moderate Assistance Patient/Caregiver Education Goal Demonstrate Energy Conservation and Pacing Caregiver Independent Assisting Patient Days to Meet Goals 2 Frequency of Treatment Frequency Of Treatment Once a Day Treatment Plan OT Treatment Plan ADL Training Functional Cognition Training Functional Mobility Patient/Family Education Discharge Planning Other Treatment Recommendations and Next Showering if appropriate and Treatment Focus use of AED for dressing needs. Discharge Recommendations OT Discharge Recommendations SNF Rehab Home Equipment Needs ayana reid BSC, [place]
[2018-01-10] MEDS: BACLOFEN 10 MG TABLET PO (20:53)
[2018-01-10] MEDS: LOSARTAN 25 MG TABLET PO (20:53)
[2018-01-11] MEDS: DEXAMETHASONE 4 MG TABLET PO ×2 (04:08→08:34)
[2018-01-11] MEDS: OXYCODONE IR 5 MG TABLET PO ×2 (04:11→08:34)
[2018-01-11 04:14] VITALS: BP 161/94; PULSE 76; RESP 20; TEMP 36.4; O2SAT 98
[2018-01-11] MEDS: LEVOTHYROXINE 112 MCG TABLET PO (05:50)
[2018-01-11] MEDS: SUCRALFATE 1 GM TABLET PO (07:50)
[2018-01-11 08:00] VITALS: BP 154/83; PULSE 74; RESP 18; TEMP 36.5; O2SAT 96
--- NOTE | 2018-01-11 08:32 | P.DS_ITS ---
History of Present Illness Date Patient Seen: 01/11/18 Time Patient Seen: 08:32 Chief complaint: *OPB*metatarsal phalangeal joint fusion etc notes Narrative: The patient is a 72-year-old female with painful hallux valgus and 2nd toe crossover deformity with hammertoe. She feels she has failed conservative treatment with shoe modification, splinting, taping and toe spacers and is requesting surgery. Discussed surgical planning which would include a fusion of the 1st metatarsophalangeal joint as well as correction of the 2nd hammertoe including 2nd metatarsal Elizabeth osteotomy, capsulotomy and extensor tendon lengthening. Patient has no pain in her 3rd and 4th toes that we will not address these. Risks benefits and alternatives to the procedure were explained to the patient in detail including risks for infection, nonunion , malunion, persistence of pain, and hardware irritation, need for additional surgeries, and nerve damage to nerves and vessels, DVT, PE, cardiopulmonary complications, . The patient has expressed their understanding of the surgery and postoperative recovery choir minutes and has elected to proceed. Consent was signed in the office. Discharge Providers Primary care physician: Joel Chan MD Consults: 01/07/18 15:22 Consult to Discharge Planning Routine Comment: probably snf Consult to Physical Therapy Evaluate & Treat Comment: probably need SNF Physician Instructions: Evaluate and Treat 01/08/18 10:10 Consult to Occupational Therapy Evaluate & Treat Comment: S/P R foot surgery, L leg weak,radiculopathy Physician Instructions: Evaluate and treat 01/08/18 21:25 Consult to Hospitalist Service Routine Comment: Consulting Provider: Kirstie Mcpherson Reason for consultation: chest pain Discharge provider: Bria Ayoub PA-C Summary Discharge Diagnosis: s/p fusion of the 1st metatarsophalangeal joint as well as correction of the 2nd hammertoe including 2nd metatarsal Elizabeth osteotomy, capsulotomy and extensor tendon lengthening. vertigo sleep apnea peptic ulcer disease migraine headaches hypothyroid hyperlipidemia History of uterine cancer History ovarian cancer GERD Asthma Angina Anemia Manpreet's disease Hospital Course: 72-year-old female electively admitted to the [facility] for 1st metatarsophalangeal joint as well as correction of the 2nd hammertoe including 2nd metatarsal Elizabeth osteotomy, capsulotomy and extensor tendon lengthening by Dr. López. Patient consented to procedure. She has a history of angina, and coronary artery disease. Patient had chest pain in evening on January 08. The pain is described as a spasm to the left side of chest with pain severity of 8/10. The chest pain did not resolve nor improve with sublingual nitroglycerin. There were no ST-T changes on EKG. Patient was given 4 mg of IV morphine and the pain subsequently resolved. There was no pain noted on January 09. Patient notes on 01/10 the same left-sided anterior wall chest pain at rest and atypical in presentation since onset at rest. Patient notes that she has been having similar episodes for the past 3-4 months. She has had radicular symptoms from her back and was provided IV steroids. Dosing was adjusted as she takes hydrocortisone for [place]'s. Dosing is now 15 mg with breakfast, 10 mg with lunch, 5 mg with dinner. She was started on metoprolol, ASA 81 mg, and as needed sublingual nitroglycerin. She is taking oxycodone for pain. She has been working with physical therapy and will be nonweightbearing on the right. On postop day number 4 she was feeling well and ready to go to [facility]. Patient has not had a bowel movement throughout her stay, she states she has issues with this at home. Exam Vital Signs (past 8 hours): - 01/11/18 04:14 Temperature 97.6 F Pulse Rate 76 Respiratory Rate 20 Blood Pressure 161/94 H Pulse Oximetry 98 Fraction of Inspired Oxygen 21 Oxygen Delivery Method Room Air Oxygen Flow Rate 0 Narrative Exam Narrative: Patient lying in bed in no acute distress. She is alert and oriented x3. Splint on right leg is in place and well fitting. Left calf is soft, compressible, nontender. Sensation intact to light touch throughout bilateral lower extremities. She states her chest pain is not changed today. She is concerned about not having a bowel movement and reassured patient orders will be sent over to SNF for management. Objective Labs Result Diagrams: 01/08/18 05:15 Discharge Plan Discharge Plan Patient Disposition: SNF Transfer to: [facility] Under care of provider: Facility MD, or PCP Transportation: Facility vehicle Consult as needed: Dental, Hearing, Mental health, Podiatry and Vision Discharge comment: Patient will discharge to SNF for continued care following foot surgery. I certify the postop hospital senior living care is medically necessary on a continuing basis for any conditions for which he/ she received care during this hospitalization.: Yes The receiving facility has agreed to accept transfer and provide medical treatment.: Yes Discharge Med Rec/Prescriptions Prescriptions: New metoprolol succinate 50 mg Tablet Extended Release 24 Hr 50 mg PO DAILY Qty: 30 RF: 0 docusate sodium 100 mg Capsule 100 mg PO BID Qty: 30 RF: 0 oxycodone 5 mg Tablet 5 mg PO Q4HR Qty: 60 RF: 0 hydrocortisone 10 mg tablet 10 mg PO .daily at lunch Qty: 30 RF: 0 hydrocortisone 5 mg tablet 5 mg PO .daily at dinner Qty: 30 RF: 0 hydrocortisone 10 mg tablet 15 mg PO .daily at breakfast Qty: 30 RF: 0 Continue NITROGLYCERIN (Nitrostat) 0.4 mg Sublingual PRN PRN (Reason: Angina) Qty: 0 RF: 0 baclofen 10 MG tablet 10 mg PO HS Qty: 0 RF: 0 aspirin 81 MG tablet,delayed release (DR/EC) 81 mg PO QDAY Qty: 0 RF: 0 bisacodyl [Fleet Laxative] 5 MG tablet,delayed release (DR/EC) 13 tab PO QDAYP PRN (Reason: Constipation) Qty: 0 RF: 0 diphenhydramine HCl [Benadryl Allergy] 25 MG tablet 25 mg PO HSP PRN (Reason: Insomnia) Qty: 0 RF: 0 pantoprazole 40 MG tablet,delayed release (DR/EC) 40 mg PO BID Qty: 0 RF: 0 multivitamin [Multiple Vitamins] 1 EACH tablet 1 tab PO QDAY Qty: 0 RF: 0 sucralfate 1 g PO QID RF: 0 losartan 25 mg PO QHS RF: 0 levothyroxine 112 mcg PO QDAY RF: 0 vortioxetine 10 mg Tablet 15 mg PO DAILY RF: 0 Discontinued oxycodone 10 MG tablet 10 mg PO Q6H PRN (Reason: pain) Qty: 0 RF: 0 clopidogrel [Plavix] 75 MG tablet 75 mg PO HS Qty: 0 RF: 0 hydrocortisone 10 MG tablet 30 mg PO BID Qty: 0 RF: 0 Follow up/Referrals: Christy López MD [Physician] - (Please follow up with our office for continued care) Joel Chan MD [Primary Care Provider] - (She should be seen by PCP for angina management) Discharge Orders: Discharge (Order); Ordered 01/11/18 Ordered By: Bria Wharton Discharge Health Status Multidrug resistant organism: No MDRO Provider Discharge Instructions Diet: Regular Liquid consistency: Normal/Thin Food texture: Regular Activity: The patient will be nonweightbearing on her right lower extremity for approximately 3 weeks. She will be converted to a cast her 1st postoperative appointment and Then she will be 3 weeks of heel weight-bearing. If she is not able to sufficiently balance on her heels and she will be nonweightbearing for 6 weeks until her pins are pulled in the clinic. Cold/Heat Therapy: As needed Wound Care Dressing: Please leave clean, dry, and intact Special Rehabilitation Services Reason for rehabilitation: Post-operative therapy Rehab type: Physical therapy and Occupational therapy Restrictions to mobility: Nonweightbearing on the right Visit Report/Discharge Packet Instructions: DI for Hammer Toe Correction Discharge Data Primary Care Provider: Joel Chan Attending Provider: Christy López VTE Deep Vein Thrombosis/Pulmonary Embolism Present on Admission: No
[2018-01-11] MEDS: PANTOPRAZOLE 40 MG TABLET PO (08:34)
[2018-01-11] MEDS: DOCUSATE 100 MG CAPSULE PO (08:34)
[2018-01-11] MEDS: METOPROLOL ER 50 MG TABLET PO (08:35)
[2018-01-11] MEDS: ASPIRIN EC 81 MG TABLET PO (08:36)
--- NOTE | 2018-01-11 09:10 | PT.IPTN ---
Current Diagnoses Hallux valgus (acquired), right foot (01/07/18) Other hammer toe(s) (acquired), unspecified foot (01/07/18) Other deformities of toe(s) (acquired), right foot (01/07/18) Radiculopathy, lumbar region (01/07/18) Surgery Performed Operation Date: 01/07/18 10:45 Actual Procedures p 1st MTPJ Fusion(Right) - Christy López MD s Correction of 2nd Toe Crossover and Hammertoe(Right) - Christy López MD s Capsulotomy, MTPJ(Right) - Christy López MD s Poss Elizabeth Osteotomy 2nd Metatarsal(Right) - Christy López MD Physical Therapy Treatment Note M2 PT-IP Current Condition Start: 01/07/18 16:01 Freq: NEEDED Status: Active Protocol: Document 01/08/18 12:05 RCC (Rec: 01/08/18 13:28 RCC [id number]) Physical Therapy Current Condition Current Condition Evaluation Date 01/08/18 Treatment Diagnosis R foot surgery, impaired mobility Onset Date 01/07/18 Precautions Other Precautions NWB for 3 weeks, then will be casted @ wk 3 and then may WB through heel only if healing well. Weight Bearing Status Weight Bearing Status Non-Weight Bearing Allowed Weight Bearing Amount (enter % NWB RLE or #) (%) M3 PT-IP Subjective Start: 01/07/18 16:01 Freq: NEEDED Status: Active Protocol: Document 01/11/18 09:10 AB (Rec: 01/11/18 10:54 AB [id number]) Subjective Physical Therapy Visit Type Type Treatment Note Visit Start Time 09:10 Visit Stop Time 09:21 Total Visit Minutes 11 Number of MASTER GLAZIER Visits 0 Physical Therapy Visit Comments Patient Comments I will try Therapy Pain Assessment Pain When Pain Assessed During Mobility Pain Present Pain Present Pain Reported Location Chest Scale Used pain scale not stated; stated that it is due to her Jack dse M4 PT-IP Mobility and Gait Start: 01/07/18 16:01 Freq: NEEDED Status: Active Protocol: Document 01/11/18 09:10 AB (Rec: 01/11/18 10:54 AB [id number]) PT-Transfer Assessment Sit to and From Stand Sit to and from Stand Minimal Assistance Moderate Assistance Use of Upper Extremities Transfers Transfer Destination Bed Transfer Technique Stand Step Pivot Transfer Ability Level of Assist Minimal Assistance Gait Assessment Gait Gait Assistance Required: Minimum Assistance Distance (Feet) (feet) 40 Able to Maintain Weight Bearing Status Yes During Gait Assistive Devices Assistive Device Gait Belt Front Wheeled Walker Orthotic/Prosthetic Devices or Brace: Yes Factors Limiting Gait Function Factors Limiting Gait Function Decreased Activity Tolerance Decreased Strength Pain Poor Balance Poor Safety Awareness Comments Gait Comments pt requiring min to mod A with sit <>stand with 3 attempts to complete and cues for technique and safety. pt was only able to ambulate ~ 40 ft using FWW min A and cues but was able to maintain NWB on RLE with c/o not feeling well and has to sit down. informed nurse and provided chair for pt. pt stated that it is her Manpreet dse and pain pointing on chest are. nurse aware. pt assisted back to room and transferred from chair to bed min A and cues. pt preferred to just sit on EOB. call light and table placed within reach. bed alarm on. M5 PT-IP Objective Assessments Start: 01/07/18 16:01 Freq: NEEDED Status: Active Protocol: Document 01/08/18 12:05 RCC (Rec: 01/08/18 13:28 RCC [id number]) Orientation Orientation/Cognition Level of Alertness Alert Orientation Name Age Birthday Month Date Year Day of Week Place Situation Safety Awareness Understands Safety Issues Strength Comments Strength Comments RLE weakness with hip flexion due to pain and extra bulk of splint. Coordination Assessment Gross Coordination Gross Coordination WNL Assessment Coordination Comments unable to test R ankle due to surgery. M6 PT-IP Treatment Start: 01/07/18 16:01 Freq: NEEDED Status: Active Protocol: Document 01/09/18 11:24 CLB (Rec: 01/09/18 12:01 CLB [id number]) Physical Therapy Treatment Education Education Provided Weight Bearing Status Safety M7 PT-IP Assessment and Plan Start: 01/07/18 16:01 Freq: NEEDED Status: Active Protocol: Document 01/11/18 09:10 AB (Rec: 01/11/18 10:54 AB [id number]) PT Summary Assessment and Plan Potential Rehabilitation Potential Good Summary Impairments Pain ROM Strength Balance Coordination Sensation Cognition Bed Mobility Transfers Gait Activity Tolerance Assessment Summary pt requiring 1 person assist with mobility and requiring increase assistance today to min A and cues. pt plan to go to [facility] today. Goals Bed Mobility Goal Standby Assistance Transfer Goal Standby Assistance Gait Goal Standby Assistance Front Wheel Walker Gait Distance 100 Days to Meet Goals 3 Frequency of Treatment Frequency Of Treatment Twice a Day Recommendations To Nursing Amount of Assist Needed 1 Person Assist Discharge Recommendations PT Discharge Recommendations SNF Rehab
[2018-01-11] MEDS: VORTIOXETINE 15 EACH PO (09:27)
--- NOTE | 2018-01-11 09:29 | CM.DPC ---
D/C packet faxed to [facility]
--- NOTE | 2018-01-11 10:05 | PC.NURSE ---
CALLED REPORT TO HONEY AT [facility]. REVIEWED F/U APPOINTMENTS NEEDED. CP THIS ADMISSION, [place] RULED OUT. HX ANGINA. BOWEL MANAGEMENT. LAST . HAS BOWEL REGIMEN AT HOME THAT HAS BEEN RE-ORDERED FOR THEIR FACILITY, ACTIVITY RESTRICTIONS, SKIN, AND MORE. ALL QUESTIONS ANSWERED TO SATISFACTION.
--- NOTE | 2018-01-11 12:15 | CM.DPC ---
DCP/continued: Reviewed chart. Received final discharge orders from Orthopedics for discharge today. [employer] placed call to Estefania at [facility]. She confirms acceptance and reports that they will pick patient up around 11:00AM. RN notified. Met with patient this AM she is aware and agreeable to d/c plan. In addition, placed call to daughter/Arleen with update. Asked GONZALES/Portia to fax orders and discharge info to [facility]. P: D/C to [facility] today. JORGE Muniz
== END 2018-01-11 11:30 ==
LOC: OR 07:15 → AC 14:18
PROVIDERS: Internal Medicine; PCP Family Medicine; Visit Provider Orthopaedic Surgery Foot and Ankle Surgery
PROC: (CPT 28750; principal; 2018-01-07 10:45)
PROC: (CPT 28285; 2018-01-07 10:45)
PROC: (CPT 28750; 2018-01-07 10:45)
PROC: (CPT 28750; 2018-01-07 10:45)
DX: M20.11 Hallux valgus (acquired), right foot (principal); M20.5X1 Other deformities of toe(s) (acquired), right foot; G89.18 Other acute postprocedural pain; F41.9 Anxiety disorder, unspecified; I25.10 Atherosclerotic heart disease of native coronary artery without angina pectoris; I10 Essential (primary) hypertension; G47.33 Obstructive sleep apnea (adult) (pediatric); M19.90 Unspecified osteoarthritis, unspecified site
CPT/HCPCS: 28750; 28285; 28308; 28234; 36415; 64450; 84484; 85027; 93005; 94760; 97116; 97161; 97165; 97530; J1100; J1170; J2250; J2270; J2405; J2704; J2795; J3010

== ENCOUNTER 2018-04-02 10:34 | Emergency (ER) | payer MEDICARE, OTHER, SELFPAY ==
[2018-01-07 15:38] VITALS: BMI 27.6
[2018-04-02 11:36] VITALS: BP 158/77; PULSE 90; PULSE 91; RESP 16; TEMP 37; O2SAT 99
[2018-04-02 12:00] VITALS: BP 128/64; PULSE 67; RESP 16; O2SAT 96
--- NOTE | 2018-04-02 12:12 | ED.LOWEXIN ---
HPI - Extremity Injury (Lower) <MONTANA Pretty - Last Filed: 04/02/18 22:13> General Chief Complaint: Extremity Injury, Lower Stated Complaint: SEVERE HIP AND LOWER BACK PAIN Time Seen by Provider: 04/02/18 12:11 Source: patient Mode of arrival: ambulatory Limitations: no limitations History of Present Illness HPI Narrative: 72-year-old female with history of right hip replacement and chronic pain that is a nonsmoker here for complaint of right hip pain and right lower back pain over the past several days. She denies any ground level falls or trauma to the area. Increased pain with movement and palpation to the right hip area and also the right buttocks area. No fevers no chills. She denies any urinary symptoms. She states that she currently uses oxycodone for pain which has had limited affecting helping her pain. She denies any other concerns or complaints. Related Data Home Medications Medication Instructions Recorded Confirmed NITROGLYCERIN (Nitrostat) 0.4 mg SUBLINGUAL PRN PRN #0 04/11/10 01/07/18 baclofen 10 mg PO HS #0 10/11/16 01/07/18 aspirin 81 mg PO QDAY #0 10/12/16 01/07/18 bisacodyl [Fleet Laxative] 13 tab PO QDAYP PRN #0 05/12/17 01/07/18 diphenhydramine HCl [Benadryl 25 mg PO HSP PRN #0 09/17/17 01/07/18 Allergy] multivitamin [Multiple Vitamins] 1 tab PO QDAY #0 09/17/17 01/07/18 pantoprazole 40 mg PO BID #0 09/17/17 01/07/18 levothyroxine 112 mcg PO QDAY 10/25/17 01/07/18 losartan 25 mg PO QHS 10/25/17 01/07/18 sucralfate 1 g PO QID 10/25/17 01/07/18 vortioxetine 15 mg PO DAILY 12/29/17 01/07/18 Previous Rx's Medication Instructions Recorded docusate sodium 100 mg PO BID #30 cap 01/11/18 hydrocortisone 5 mg PO .daily at dinner #30 tab 01/11/18 hydrocortisone 10 mg PO .daily at lunch #30 tab 01/11/18 hydrocortisone 15 mg PO .daily at breakfast #30 01/11/18 tab metoprolol succinate 50 mg PO DAILY #30 tab 01/11/18 oxycodone 5 mg PO Q4HR #60 tab 01/11/18 Allergies Allergy/AdvReac Type Severity Reaction Status Date / Time Sulfa (Sulfonamide Allergy Intermediate BLISTERS, Verified 01/07/18 09:02 Antibiotics) Hives latex [LATEX] Allergy Mild RASH Verified 01/07/18 09:02 cefaclor Allergy Unknown PT DOES Verified 01/07/18 09:02 NOT REMEMBER ceftriaxone Allergy Unknown PT DOES Verified 01/07/18 09:02 NOT REMEMBER doxycycline [DOXYCYCLINE] Allergy Unknown UNK Verified 01/07/18 09:02 formaldehyde [FORMALDEHYDE] Allergy Unknown UNK Verified 01/07/18 09:02 levofloxacin Allergy Unknown SWELLING, Verified 01/07/18 09:02 edema penicillin G Allergy Unknown my throat Verified 01/07/18 09:02 tightens up, Hives strawberry Allergy Unknown RASH Verified 01/07/18 09:02 terbinafine Allergy Unknown unknown Verified 01/07/18 09:02 terfenadine Allergy Unknown Rash Verified 01/07/18 09:02 trazodone [TRAZODONE] Allergy Unknown Edema Verified 01/07/18 09:02 epinephrine AdvReac Severe PASSED OUT Verified 01/07/18 09:02 prednisone AdvReac Severe FEELS LIKE Verified 01/07/18 09:02 SKIN ON FIRE, Rash zolpidem AdvReac Severe HALLUCINATI Verified 01/07/18 09:02 ONS alprazolam AdvReac Mild forgetfulness, Verified 01/07/18 09:02 hallucinati- IS OK WITH LORAZEPAM & TEMAZEPAM adhesive AdvReac Unknown PAPER TAPE Verified 01/07/18 09:02 OK OTHERS? gabapentin AdvReac Unknown Verified 01/07/18 09:02 procaine AdvReac Unknown (NOVACAINE) Verified 01/07/18 09:02 Edema Review of Systems <MONTANA Pretty - Last Filed: 04/02/18 22:13> Review of Systems All systems reviewed & are unremarkable except as noted in HPI and below Constitutional Denies chills, Denies fever(s), Denies lethargy and Denies weakness Eyes Denies change in vision, Denies eye discharge, Denies irritation and Denies loss of vision ENT Ears, Nose, Mouth, and Throat: Denies change in voice, Denies neck pain and Denies sore throat Cardiovascular Denies chest pain, Denies irregular heart rhythm, Denies lightheadedness, Denies palpitations, Denies dyspnea, Denies dyspnea on exertion and Denies orthopnea Respiratory Denies cough, Denies dyspnea, Denies dyspnea on exertion and Denies wheezing Gastrointestinal Gastrointestinal: Denies abdominal pain, Denies change in bowel habits, Denies diarrhea, Denies nausea and Denies vomiting Genitourinary Denies hematuria, Denies flank pain, Denies urinary incontinence and Denies urinary urgency Musculoskeletal Denies neck pain Comments: Right hip pain and right lower back pain Integumentary/Breasts Denies pruritus, Denies erythema, Denies rash and Denies wounds Neurologic Denies confusion, Denies loss of vision and Denies weakness Psychiatric Denies anxiety, Denies confusion, Denies depression, Denies homicidal ideation and Denies suicidal ideation Endocrine Denies palpitations Hematologic/Lymphatic Denies easy bruising Allergic/Immunologic Denies wheezing Exam <MONTANA Pretty - Last Filed: 04/02/18 22:13> Initial Vital Signs Initial Vital Signs: Vital Signs Temperature 98.6 F 04/02/18 11:36 Pulse Rate 90 04/02/18 11:36 Respiratory Rate 16 04/02/18 11:36 Blood Pressure 158/77 H 04/02/18 11:36 Pulse Oximetry 99 04/02/18 11:36 Const General: cooperative and well developed Nutritional Appearance: well nourished Orientation: alert, awake, oriented x3 and not confused [facility] Mouth: oral mucosae normal and moist mucous membranes Eyes Conjunctivae: conjunctivae normal Sclera: sclerae normal Pupils: PERRL EOM: EOM intact bilaterally Resp Effort & Inspection: normal respiratory effort, able to speak in complete sentences, no respiratory distress and no use of accessory muscles Auscultation: clear to auscultation bilaterally, no rales, no rhonchi and no wheezes Cardio Rate: regular rate Rhythm: regular rhythm Heart Sounds: no click, no gallops, no murmurs and no rubs Pulses: normal peripheral pulses Skin General: no rashes or lesions noted, No jaundice and No petechiae Neuro General: alert, oriented x3, gait normal and no focal motor deficits Speech: speech normal Extrem Other: Tenderness on palpation to the right lateral hip and also into the right buttocks area. No signs of trauma. No swelling no ecchymosis. No deformities. Distal sensation is intact. Distal pulses are intact. Distal range of motion is intact. <Crow Luevano DO - Last Filed: 04/03/18 07:24> Initial Vital Signs Initial Vital Signs: Vital Signs Temperature 98.6 F 04/02/18 11:36 Pulse Rate 90 04/02/18 11:36 Respiratory Rate 16 04/02/18 11:36 Blood Pressure 158/77 H 04/02/18 11:36 Pulse Oximetry 99 04/02/18 11:36 Course <MONTANA Pretty - Last Filed: 04/02/18 22:13> Orders Ordered: ED Orders 04/02/18 12:26 XR hip w pel if done RT 2V Stat Vital Signs - 8 hr 04/02/18 11:36 04/02/18 13:21 Temperature 98.6 F Pulse Rate 91 H 72 Pulse Rate [Right Posterior Tibial] 90 Respiratory Rate 16 13 Blood Pressure 158/77 H Blood Pressure [Left Arm] 144/79 H Pulse Oximetry 99 98 <Crow Luevano DO - Last Filed: 04/03/18 07:24> Orders Ordered: ED Orders 04/02/18 12:26 XR hip w pel if done RT 2V Stat Vital Signs - 8 hr 04/02/18 11:36 04/02/18 13:21 Temperature 98.6 F Pulse Rate 91 H 72 Pulse Rate [Right Posterior Tibial] 90 Respiratory Rate 16 13 Blood Pressure 158/77 H Blood Pressure [Left Arm] 144/79 H Pulse Oximetry 99 98 MDM - Extremity Injury (Lower) <MONTANA Pretty - Last Filed: 04/02/18 22:13> Imaging Data R hip: Radiologist's impression: [address] [address] XRay Report Signed Patient: Javier Steen MMR#: [id number] : 4Acct:[id number] Age/Sex: 72 / FDate of Service: 04/02/18 Loc: ED Accession Number: [id number] Procedure: XR hip w pel if done RT 2V Ordering Provider: Milton Valera PROCEDURE: XR HIP W PEL IF DONE RT 2V INDICATIONS: hx of hip replacement with acute pain TECHNIQUE: AP pelvis with lateral view(s) of the right hip(s). COMPARISON: [facility] [place], CR, XR PELVIS WITH BILATERAL LATERAL HIPS, 12/29/2017, 9:08. FINDINGS: Bones: No fractures or dislocations. Pelvic ring appears intact. No suspicious bony lesions. Right hip arthroplasty is present. Heterotopic ossifications are noted adjacent to the left iliac wing, unchanged. Prominent degenerative narrowing is present within the left hip. Soft tissues: The visualized bowel gas pattern is normal. No suspicious soft tissue calcifications. Prominent stool is present within the pelvis. IMPRESSION: No visualized acute fracture or dislocation. However, if clinical concern and/or pain persist, short interval imaging followup in 7-10 days is recommended, as occult injury cannot be definitively excluded. Dictated by: Maxine Olivares M.D. on 04/02/2018 at 13:58 Approved by: Maxine Olivares M.D. on 04/02/2018 at 13:59 [facility] Narrative Medical decision making narrative: X-ray the right hip was obtained was negative for any acute findings. Differential between lower back pain causing sciatica and right hip strain. Use [id number] ibuprofen along with currently prescribed pain management regimen as needed for any discomfort. Follow up with Orthopedics later this week for re-evaluation. Would like to order steroids to help with possible sciatica however she is allergic to prednisone so use [id number] NSAIDs instead. For any worsening symptoms return to the emergency room. Discharge Plan Departure Patient Disposition: Home Clinical Impression: Acute pain of right hip Discharge Date/Time: 04/02/18 14:20 Interventions: ED Discharge Assessment Last Done: 04/02/18 14:20 Instructions: DI for Hip Pain Activity Restrictions/Additional Instructions: X-ray the right hip was obtained was negative for any acute findings. Differential between hip strain and lower back pain with sciatica. Use [id number] ibuprofen along with currently prescribed pain management regimen as needed for any discomfort. Follow up with Orthopedics later this week for re-evaluation of the right hip pain. For any worsening symptoms return to the emergency room. Follow up with primary care provider. Prescriptions: No Action NITROGLYCERIN (Nitrostat) 0.4 mg Sublingual PRN PRN (Reason: Angina) Qty: 0 RF: 0 baclofen 10 MG tablet 10 mg PO HS Qty: 0 RF: 0 aspirin 81 MG tablet,delayed release (DR/EC) 81 mg PO QDAY Qty: 0 RF: 0 bisacodyl [Fleet Laxative] 5 MG tablet,delayed release (DR/EC) 13 tab PO QDAYP PRN (Reason: Constipation) Qty: 0 RF: 0 diphenhydramine HCl [Benadryl Allergy] 25 MG tablet 25 mg PO HSP PRN (Reason: Insomnia) Qty: 0 RF: 0 pantoprazole 40 MG tablet,delayed release (DR/EC) 40 mg PO BID Qty: 0 RF: 0 multivitamin [Multiple Vitamins] 1 EACH tablet 1 tab PO QDAY Qty: 0 RF: 0 sucralfate 1 g PO QID RF: 0 losartan 25 mg PO QHS RF: 0 levothyroxine 112 mcg PO QDAY RF: 0 vortioxetine 10 mg Tablet 15 mg PO DAILY RF: 0 metoprolol succinate 50 mg Tablet Extended Release 24 Hr 50 mg PO DAILY Qty: 30 RF: 0 docusate sodium 100 mg Capsule 100 mg PO BID Qty: 30 RF: 0 oxycodone 5 mg Tablet 5 mg PO Q4HR Qty: 60 RF: 0 hydrocortisone 10 mg tablet 10 mg PO .daily at lunch Qty: 30 RF: 0 hydrocortisone 5 mg tablet 5 mg PO .daily at dinner Qty: 30 RF: 0 hydrocortisone 10 mg tablet 15 mg PO .daily at breakfast Qty: 30 RF: 0 Referrals: Joel Chan MD [Primary Care Provider] - <Crow Luevano DO - Last Filed: 04/03/18 07:24> Cosign ED Attending Cosjuneature Attestation: I was available for consultation during this patient's emergency department encounter
--- NOTE | 2018-04-02 12:26 | DI.RAD.S_ITS ---
PROCEDURE: XR HIP W PEL IF DONE RT 2V INDICATIONS: hx of hip replacement with acute pain TECHNIQUE: AP pelvis with lateral view(s) of the right hip(s). COMPARISON: [facility], CR, XR PELVIS WITH BILATERAL LATERAL HIPS, 12/29/2017, 9:08. FINDINGS: Bones: No fractures or dislocations. Pelvic ring appears intact. No suspicious bony lesions. Right hip arthroplasty is present. Heterotopic ossifications are noted adjacent to the left iliac wing, unchanged. Prominent degenerative narrowing is present within the left hip. Soft tissues: The visualized bowel gas pattern is normal. No suspicious soft tissue calcifications. Prominent stool is present within the pelvis. IMPRESSION: No visualized acute fracture or dislocation. However, if clinical concern and/or pain persist, short interval imaging followup in 7-10 days is recommended, as occult injury cannot be definitively excluded. Dictated by: Maxine Olivares M.D. on 04/02/2018 at 13:58 Approved by: Maxine Olivares M.D. on 04/02/2018 at 13:59
[2018-04-02 13:21] VITALS: BP 144/79; PULSE 72; RESP 13; O2SAT 98
== END 2018-04-02 14:20 | disposition home or self-care (01) ==
PROVIDERS: Emergency Provider Nurse Practitioner Family; PCP Family Medicine
DX: M25.551 Pain in right hip (principal)
CPT/HCPCS: 73502; 99282; 99283

== ENCOUNTER → 2018-04-21 11:16 | Outpatient (CLI) | payer MEDICARE, OTHER, SELFPAY ==
[2018-01-07 15:38] VITALS: BMI 27.6
--- NOTE | 2018-04-21 | DI.CT.S_ITS ---
PROCEDURE: CT LE RT WO CON INDICATIONS: right hip pain TECHNIQUE: Noncontrast 3 mm axial sections acquired through the bony pelvis. Additional 3 mm axial sections acquired through the symptomatic hip joint, with coronal and sagittal reformats. COMPARISON: [facility] [place], CR, XR LUMBAR SPINE 2 OR 3 VIEWS, 04/11/2018, 16:09. [facility], CR, XR PELVIS WITH LATERAL HIP RIGHT, 04/11/2018, 16:18. [facility], CT, CT LUMBAR SPINE WO CON, 04/21/2018, 11:17. FINDINGS: Image quality: Excellent. Bones: There is a minimally displaced fracture involving the right sacral ala. Nondisplaced insufficiency fracture is noted in the left sacral ala. A right hip prosthesis is present. No periprosthesis fracture. Soft tissues: Metallic artifact partially obscure pelvis. No soft tissue mass or hematoma. Appearance of mild colonic wall thickening in sigmoid colon may be secondary to inadequate distention. IMPRESSION: 1. Right sacral fracture with minimal displacement. 2. Nondisplaced insufficiency fracture of the left sacral ala. 3. Right hip prosthesis in anatomic alignment. No shaun prosthesis fracture. Dictated by: Simone Sin M.D. on 04/21/2018 at 12:02 Approved by: Simone Sin M.D. on 04/22/2018 at 10:03
--- NOTE | 2018-04-21 | DI.CT.S_ITS ---
PROCEDURE: CT LUMBAR SPINE WO CON INDICATIONS: LOW BACK PAIN TECHNIQUE: Noncontrast 3 mm thick sections acquired from the T12 level to the sacrum. Sagittal and coronal reformats were constructed. For radiation dose reduction, the following was used: automated exposure control. COMPARISON: [facility] [place], CR, XR LUMBAR SPINE 2 OR 3 VIEWS, 12/29/2017, 9:16. [facility] [place], CT, ABDOMEN/PELVIS WITH CONTRAST, 10/09/2016, 22:36. [facility], OR, BONE SCAN WHOLE BODY, 06/17/2017, 12:03. [facility] [place], CR, XR LUMBAR SPINE 2 OR 3 VIEWS, 04/11/2018, 16:09. FINDINGS: Image quality: Excellent. Bones: There is right sacral ala fracture with minimal displacement. There is mild dextroscoliosis; as well as normal bony alignment. No acute vertebral body compression fractures. A small sclerotic bony lesion is noted in the left iliac bone, most likely alignment. Central spinal caliber is of normal overall caliber. No pars defects. T12-L1: Normal. L1-L2: Mild loss of disc height and circumferential disc bulge. Mild bilateral facet arthropathy. The central canal is minimally narrowed. Mild bilateral foraminal stenosis. L2-L3: Mild loss of disc height and circumferential disc bulge. Mild bilateral facet arthropathy and hypertrophy of ligamentum flavum. The central canal is mildly narrowed. Moderate left and mild right foraminal stenosis. L3-L4: Mild loss of disc height and diffuse posterior disc bulge disc osteophyte complex. Mild bilateral facet arthropathy and moderate to severe hypertrophy of ligamentum flavum. The central canal is moderately narrowed. Moderate to severe left and moderate right foraminal stenosis. L4-L5: [id number] loss of disc height and diffuse posterior disc bulge disc osteophyte complex. Mild bilateral facet arthropathy and moderate to severe hypertrophy of ligamentum flavum. The central canal is moderately narrowed. Moderate bilateral foraminal stenosis. L5-S1: Preserved loss of disc height and diffuse posterior disc bulge disc osteophyte complex. Mild bilateral facet arthropathy and hypertrophy of ligamentum flavum. The central canal is mildly narrowed. Mild bilateral foraminal stenosis. Soft tissues: No retroperitoneal masses or hematomas. Visualized aorta is normal in caliber. Dense aortic calcification consistent with atherosclerosis. IMPRESSION: 1. Multilevel degenerative disc disease and facet arthropathy as described. 2. Multilevel central canal stenosis, moderate at L2 at L4 and L4-L5. 3. Multiple foraminal stenosis as described. 4. Right sacral ala fracture with minimal displacement. Dictated by: Simone Sin M.D. on 04/21/2018 at 16:35 Approved by: Simone Sin M.D. on 04/21/2018 at 17:11
== END ==
PROVIDERS: PCP Family Medicine; Visit Provider Family Medicine
DX: M51.36 Other intervertebral disc degeneration, lumbar region (principal); M51.37 Other intervertebral disc degeneration, lumbosacral region; S32.19XA Other fracture of sacrum, initial encounter for closed fracture; M47.816 Spondylosis without myelopathy or radiculopathy, lumbar region; M47.817 Spondylosis without myelopathy or radiculopathy, lumbosacral region; M48.061 Spinal stenosis, lumbar region without neurogenic claudication; M48.07 Spinal stenosis, lumbosacral region; M54.5 Low back pain; I70.0 Atherosclerosis of aorta
CPT/HCPCS: 72131; 73700

== ENCOUNTER 2018-04-26 14:59 | Emergency (ER) | payer MEDICARE, OTHER, SELFPAY ==
[2018-01-07 15:38] VITALS: BMI 27.6
[2018-04-26 15:15] VITALS: BP 187/82; PULSE 82; RESP 20; TEMP 36.6; O2SAT 98; BMI 29.8
--- NOTE | 2018-04-26 17:17 | DI.RAD.S_ITS ---
PROCEDURE: XR HIP W PEL IF DONE RT 2V INDICATIONS: hip pain TECHNIQUE: 2 views of the hip were acquired. COMPARISON: [facility], CR, XR HIP W PEL IF DONE RT 2V, 04/02/2018, 12:35. [facility], CR, [id number] W PEL IF PERFORMED, 09/17/2017, 18:11. [facility], CR, [id number] W PEL IF PERFORMED, 12/10/2016, 10:05. [facility], CR, [id number] W PEL IF PERFORMED, 09/10/2016, 12:09. FINDINGS: Bones: No fractures or dislocations. No suspicious bony lesions. The visualized pelvic ring appears intact. There are moderate degenerative changes of the lumbar spine. There are moderate degenerative changes of the left hip joint. Right total hip arthroplasty is unchanged from prior exam. Soft tissues: Rounded soft tissue calcifications projecting over the left iliac wing are unchanged from prior exam. Pelvic phleboliths are again noted. IMPRESSION: No acute osseous abnormality of the hips bilaterally. Moderate degenerative changes of the left hip joint. Right total hip arthroplasty is unchanged from prior exam. Dictated by: Sunny Cade M.D. on 04/26/2018 at 19:42 Approved by: Sunny Cade M.D. on 04/26/2018 at 19:44
--- NOTE | 2018-04-26 17:44 | ED.EXTPRO ---
HPI - Extremity Problem <Lea VivasMARY-BC - Last Filed: 04/26/18 20:44> General Chief complaint: Extremity Problem,Nontraumatic Stated complaint: RT HIP PAIN Time Seen by Provider: 04/26/18 17:01 Source: patient and family Mode of arrival: ambulatory Limitations: no limitations History of Present Illness HPI Narrative: The patient is a 72-year-old female with history of right hip pain and replacement who presents with chief complaint of right hip pain today. She has had right hip pain ongoing for several years. Today she was at physical therapy and the physical therapist noted a leg length discrepancy, thus the patient is concerned about hip dislocation. She ambulated into the emergency department today. She denies any recent trauma or falls. She denies any fever. She has been using her ibuprofen, Tylenol and oxycodone as per her outpatient regimen for her chronic pain. Hip pain is described as burning and going down the back of her leg. Diagnosis of sciatica has been discussed in the past. She had a hip x-ray done on 04/02Of this year with no acute findings. She had a lumbar spine CT that illustrated A sacral fracture but no hip etiology. Related Data Home Medications Medication Instructions Recorded Confirmed nitroglycerin [Nitrostat] 0.4 mg SUBLINGUAL Q5-15M PRN #0 04/11/10 04/26/18 baclofen 10 mg PO BEDTIME #0 10/11/16 04/26/18 aspirin 81 mg PO QDAY #0 10/12/16 01/07/18 bisacodyl [Fleet Laxative] 13 tab PO QDAYP PRN #0 05/12/17 01/07/18 diphenhydramine HCl [Benadryl 25 mg PO HSP PRN #0 09/17/17 01/07/18 Allergy] multivitamin [Multiple Vitamins] 1 tab PO QDAY #0 09/17/17 01/07/18 pantoprazole 40 mg PO BID #0 09/17/17 04/26/18 levothyroxine 112 mcg PO DAILY #0 10/25/17 04/26/18 sucralfate 1 g PO QID #0 10/25/17 04/26/18 vortioxetine 15 mg PO DAILY 12/29/17 01/07/18 apixaban [Eliquis] 5 mg PO BID 04/26/18 04/26/18 hydrocortisone 30 mg PO DAILY 04/26/18 04/26/18 losartan 25 mg PO DAILY 04/26/18 04/26/18 metoprolol succinate 12.5 mg PO DAILY 04/26/18 04/26/18 Previous Rx's Medication Instructions Recorded docusate sodium 100 mg PO BID #30 cap 01/11/18 oxycodone 5 mg PO Q4HR #60 tab 01/11/18 Allergies Allergy/AdvReac Type Severity Reaction Status Date / Time Sulfa (Sulfonamide Allergy Intermediate BLISTERS, Verified 01/07/18 09:02 Antibiotics) Hives latex [LATEX] Allergy Mild RASH Verified 01/07/18 09:02 cefaclor Allergy Unknown PT DOES Verified 01/07/18 09:02 NOT REMEMBER ceftriaxone Allergy Unknown PT DOES Verified 01/07/18 09:02 NOT REMEMBER doxycycline [DOXYCYCLINE] Allergy Unknown UNK Verified 01/07/18 09:02 formaldehyde [FORMALDEHYDE] Allergy Unknown UNK Verified 01/07/18 09:02 levofloxacin Allergy Unknown SWELLING, Verified 01/07/18 09:02 edema penicillin G Allergy Unknown my throat Verified 01/07/18 09:02 tightens up, Hives strawberry Allergy Unknown RASH Verified 01/07/18 09:02 terbinafine Allergy Unknown unknown Verified 01/07/18 09:02 terfenadine Allergy Unknown Rash Verified 01/07/18 09:02 trazodone [TRAZODONE] Allergy Unknown Edema Verified 01/07/18 09:02 epinephrine AdvReac Severe PASSED OUT Verified 01/07/18 09:02 prednisone AdvReac Severe FEELS LIKE Verified 01/07/18 09:02 SKIN ON FIRE, Rash zolpidem AdvReac Severe HALLUCINATI Verified 01/07/18 09:02 ONS alprazolam AdvReac Mild forgetfulness, Verified 01/07/18 09:02 hallucinati- IS OK WITH LORAZEPAM & TEMAZEPAM adhesive AdvReac Unknown PAPER TAPE Verified 01/07/18 09:02 OK OTHERS? gabapentin AdvReac Unknown Verified 01/07/18 09:02 procaine AdvReac Unknown (NOVACAINE) Verified 01/07/18 09:02 Edema Review of Systems <MARY Blevins-ROEL - Last Filed: 04/26/18 20:44> Review of Systems GENERAL: Denies chills, fatigue, malaise, fever, sweats. HEENT: Denies sinus pain, ear pain, sore throat, difficulty swallowing, dizziness. RESPIRATORY: Denies dyspnea, cough, wheezing, hemoptysis, sputum. CARDIOVASCULAR: Denies chest pain, palpitations, orthopnea, edema, GASTROINTESTINAL: Denies nausea, vomiting, abdominal pain, diarrhea, constipation, melena. : Denies dysuria, frequency, incontinence, hematuria, urinary retention. MUSCULOSKELETAL: See HPI SKIN: Denies rash, skin lesions, or other NEUROLOGIC: Denies weakness, headache, numbness, change in speech, confusion, seizures, incoordination. PSYCHIATRIC: No concerning psychosocial issues. 12 point review of systems is negative except for those stated above Exam <MARY Blevins-BC - Last Filed: 04/26/18 20:44> Narrative Exam Narrative: GENERAL: Elderly female in no acute distress lying on stretcher HEAD: Atraumatic. Normocephalic. No temporal or scalp tenderness. EYES: Pupils equal round and reactive. Extraocular motions intact. No scleral icterus. No injection or drainage. ENT: Nose without bleeding, purulent drainage or septal hematoma. Throat without erythema, tonsillar hypertrophy or exudate. Uvula midline. Airway patent. NECK: Trachea midline. No JVD or lymphadenopathy. Supple, nontender, no meningeal signs. CARDIOVASCULAR: Regular rate and rhythm RESPIRATORY: Clear to auscultation. Breath sounds equal bilaterally. No wheezes, rales, or rhonchi. GASTROINTESTINAL: Abdomen soft, non-tender, nondistended. No hepato-splenomegaly, or palpable masses. No guarding. EXTREMITIES: Generalized pain to palpation of right hip. Patient is able to lift and hold her right leg off of the stretcher. Positive pedal pulses right foot. Patient is able to flex and extend right foot. BACK: Nontender without deformity or crepitance. No flank tenderness. NEURO: AOx3. SKIN: No rash or erythema. Initial Vital Signs Initial Vital Signs: Vital Signs Temperature 97.9 F 04/26/18 15:15 Pulse Rate 82 04/26/18 15:15 Respiratory Rate 20 04/26/18 15:15 Blood Pressure 187/82 H 04/26/18 15:15 Pulse Oximetry 98 04/26/18 15:15 <Lea Ibarra DO - Last Filed: 04/27/18 03:33> Initial Vital Signs Initial Vital Signs: Vital Signs Temperature 97.9 F 04/26/18 15:15 Pulse Rate 82 04/26/18 15:15 Respiratory Rate 20 04/26/18 15:15 Blood Pressure 187/82 H 04/26/18 15:15 Pulse Oximetry 98 04/26/18 15:15 Course <TAMIA Blevins - Last Filed: 04/26/18 20:44> Orders Ordered: ED Orders 04/26/18 17:17 XR hip w pel if done RT 2V Stat Vital Signs - 8 hr 04/26/18 19:42 Pulse Rate 61 Respiratory Rate 14 Blood Pressure [Left Arm] 143/71 H Pulse Oximetry 97 <Lea Ibarra DO - Last Filed: 04/27/18 03:33> Orders Ordered: ED Orders 04/26/18 17:17 XR hip w pel if done RT 2V Stat Vital Signs - 8 hr 04/26/18 19:42 Pulse Rate 61 Respiratory Rate 14 Blood Pressure [Left Arm] 143/71 H Pulse Oximetry 97 MDM - Extremity (Nontraumatic) <TAMIA Blevins - Last Filed: 04/26/18 20:44> Imaging Data hip xray : Radiologist's impression: [address] [address] XRay Report Signed Patient: Javier Steen MMR#: [id number] : 4Acct:[id number] Age/Sex: 72 / FDate of Service: 04/26/18 Loc: ED Accession Number: [id number] Procedure: XR hip w pel if done RT 2V Ordering Provider: Lea Vivas PROCEDURE: XR HIP W PEL IF DONE RT 2V INDICATIONS: hip pain TECHNIQUE: 2 views of the hip were acquired. COMPARISON: [facility], JACQUIE, XR HIP W PEL IF DONE RT 2V, [facility]02/2018, 12:35[id number] [facility]FORMED, [facility]17/2017, 18:11[facility] [id number] [facility] PERFORMED, 12/10/2016, 10:05[facility] [id number] [facility] PERFORMED, 09/10/2016, 12:09. FINDINGS: Bones: No fractures or dislocations. No suspicious bony lesions. The visualized pelvic ring appears intact. There are moderate degenerative changes of the lumbar spine. There are moderate degenerative changes of the left hip joint. Right total hip arthroplasty is unchanged from prior exam. Soft tissues: Rounded soft tissue calcifications projecting over the left iliac wing are unchanged from prior exam. Pelvic phleboliths are again noted. IMPRESSION: No acute osseous abnormality of the hips bilaterally. Moderate degenerative changes of the left hip joint. Right total hip arthroplasty is unchanged from prior exam. Dictated by: Sunny Cade M.D. on 04/26/2018 at 19:42 Approved by: Snuny Cade M.D. on 04/26/2018 at 19:44 [facility] Narrative Medical decision making narrative: Patient is a 72-year-old female with history of right hip replacement who presents with chief complaint of right hip pain without trauma. She ambulated into the emergency department concerned that her hip is ?out of place. I discussed that the hip is an given that she ambulated in, but she was still concerned as her physical therapist was concerned about a dislocated hip. Thus I agreed to do an x-ray, which showed no acute dislocation. I discussed at length follow up with primary care provider continued pain medications as discussed by PCP. Patient had no questions or concerns upon discharge. Discharge Plan Departure Patient Disposition: Home Clinical Impression: Acute pain of right hip Discharge Date/Time: 04/26/18 20:11 Interventions: ED Discharge Assessment Last Done: 04/26/18 20:11 Instructions: DI for Hip Pain Activity Restrictions/Additional Instructions: Your hip x-rays came negative for any fracture or abnormality today. Please follow-up with primary care provider. Please continue pain medication regimen as set by PCP as well as physical therapy as set by PCP. No acute findings in x-rays today. Prescriptions: No Action nitroglycerin [Nitrostat] 0.4 mg Tablet, Sublingual 0.4 mg SUBLINGUAL Q5-15M PRN (Reason: Chest Pain) Qty: 0 RF: 0 baclofen 10 MG tablet 10 mg PO BEDTIME Qty: 0 RF: 0 aspirin 81 MG tablet,delayed release (DR/EC) 81 mg PO QDAY Qty: 0 RF: 0 bisacodyl [Fleet Laxative] 5 MG tablet,delayed release (DR/EC) 13 tab PO QDAYP PRN (Reason: Constipation) Qty: 0 RF: 0 diphenhydramine HCl [Benadryl Allergy] 25 MG tablet 25 mg PO HSP PRN (Reason: Insomnia) Qty: 0 RF: 0 pantoprazole 40 MG tablet,delayed release (DR/EC) 40 mg PO BID Qty: 0 RF: 0 multivitamin [Multiple Vitamins] 1 EACH tablet 1 tab PO QDAY Qty: 0 RF: 0 sucralfate 1 gram Tablet 1 g PO QID Qty: 0 RF: 0 levothyroxine 112 mcg Tablet 112 mcg PO DAILY Qty: 0 RF: 0 losartan 25 mg tablet 25 mg PO DAILY RF: 0 metoprolol succinate 25 mg tablet extended release 24 hr 12.5 mg PO DAILY RF: 0 apixaban [Eliquis] 5 mg tablet 5 mg PO BID RF: 0 hydrocortisone 10 mg tablet 30 mg PO DAILY RF: 0 vortioxetine 10 mg Tablet 15 mg PO DAILY RF: 0 docusate sodium 100 mg Capsule 100 mg PO BID Qty: 30 RF: 0 oxycodone 5 mg Tablet 5 mg PO Q4HR Qty: 60 RF: 0 Referrals: Joel Chan MD [Primary Care Provider] - <Lea Ibarra DO - Last Filed: 04/27/18 03:33> Cosign ED Attending Cosignature Attestation: I was immediately available in the department for consultation. This documentation has been reviewed and I agree with assessment and plan. Supervised by Lea Ibarra DO
--- NOTE | 2018-04-26 17:49 | ED_ITS ---
HPI - Extremity Problem <Lea VivasMARY-BC - Last Filed: 04/26/18 20:44> General Chief complaint: Extremity Problem,Nontraumatic Stated complaint: RT HIP PAIN Time Seen by Provider: 04/26/18 17:01 Source: patient and family Mode of arrival: ambulatory Limitations: no limitations History of Present Illness HPI Narrative: The patient is a 72-year-old female with history of right hip pain and replacement who presents with chief complaint of right hip pain today. She has had right hip pain ongoing for several years. Today she was at physical therapy and the physical therapist noted a leg length discrepancy, thus the patient is concerned about hip dislocation. She ambulated into the emergency department today. She denies any recent trauma or falls. She denies any fever. She has been using her ibuprofen, Tylenol and oxycodone as per her outpatient regimen for her chronic pain. Hip pain is described as burning and going down the back of her leg. Diagnosis of sciatica has been discussed in the past. She had a hip x-ray done on 04/02Of this year with no acute findings. She had a lumbar spine CT that illustrated A sacral fracture but no hip etiology. Related Data Home Medications Medication Instructions Recorded Confirmed nitroglycerin [Nitrostat] 0.4 mg SUBLINGUAL Q5-15M PRN #0 04/11/10 04/26/18 baclofen 10 mg PO BEDTIME #0 10/11/16 04/26/18 aspirin 81 mg PO QDAY #0 10/12/16 01/07/18 bisacodyl [Fleet Laxative] 13 tab PO QDAYP PRN #0 05/12/17 01/07/18 diphenhydramine HCl [Benadryl 25 mg PO HSP PRN #0 09/17/17 01/07/18 Allergy] multivitamin [Multiple Vitamins] 1 tab PO QDAY #0 09/17/17 01/07/18 pantoprazole 40 mg PO BID #0 09/17/17 04/26/18 levothyroxine 112 mcg PO DAILY #0 10/25/17 04/26/18 sucralfate 1 g PO QID #0 10/25/17 04/26/18 vortioxetine 15 mg PO DAILY 12/29/17 01/07/18 apixaban [Eliquis] 5 mg PO BID 04/26/18 04/26/18 hydrocortisone 30 mg PO DAILY 04/26/18 04/26/18 losartan 25 mg PO DAILY 04/26/18 04/26/18 metoprolol succinate 12.5 mg PO DAILY 04/26/18 04/26/18 Previous Rx's Medication Instructions Recorded docusate sodium 100 mg PO BID #30 cap 01/11/18 oxycodone 5 mg PO Q4HR #60 tab 01/11/18 Allergies Allergy/AdvReac Type Severity Reaction Status Date / Time Sulfa (Sulfonamide Allergy Intermediate BLISTERS, Verified 01/07/18 09:02 Antibiotics) Hives latex [LATEX] Allergy Mild RASH Verified 01/07/18 09:02 cefaclor Allergy Unknown PT DOES Verified 01/07/18 09:02 NOT REMEMBER ceftriaxone Allergy Unknown PT DOES Verified 01/07/18 09:02 NOT REMEMBER doxycycline [DOXYCYCLINE] Allergy Unknown UNK Verified 01/07/18 09:02 formaldehyde [FORMALDEHYDE] Allergy Unknown UNK Verified 01/07/18 09:02 levofloxacin Allergy Unknown SWELLING, Verified 01/07/18 09:02 edema penicillin G Allergy Unknown my throat Verified 01/07/18 09:02 tightens up, Hives strawberry Allergy Unknown RASH Verified 01/07/18 09:02 terbinafine Allergy Unknown unknown Verified 01/07/18 09:02 terfenadine Allergy Unknown Rash Verified 01/07/18 09:02 trazodone [TRAZODONE] Allergy Unknown Edema Verified 01/07/18 09:02 epinephrine AdvReac Severe PASSED OUT Verified 01/07/18 09:02 prednisone AdvReac Severe FEELS LIKE Verified 01/07/18 09:02 SKIN ON FIRE, Rash zolpidem AdvReac Severe HALLUCINATI Verified 01/07/18 09:02 ONS alprazolam AdvReac Mild forgetfulness, Verified 01/07/18 09:02 hallucinati- IS OK WITH LORAZEPAM & TEMAZEPAM adhesive AdvReac Unknown PAPER TAPE Verified 01/07/18 09:02 OK OTHERS? gabapentin AdvReac Unknown Verified 01/07/18 09:02 procaine AdvReac Unknown (NOVACAINE) Verified 01/07/18 09:02 Edema Review of Systems <MARY Blevins-ROEL - Last Filed: 04/26/18 20:44> Review of Systems GENERAL: Denies chills, fatigue, malaise, fever, sweats. HEENT: Denies sinus pain, ear pain, sore throat, difficulty swallowing, dizziness. RESPIRATORY: Denies dyspnea, cough, wheezing, hemoptysis, sputum. CARDIOVASCULAR: Denies chest pain, palpitations, orthopnea, edema, GASTROINTESTINAL: Denies nausea, vomiting, abdominal pain, diarrhea, constipation, melena. : Denies dysuria, frequency, incontinence, hematuria, urinary retention. MUSCULOSKELETAL: See HPI SKIN: Denies rash, skin lesions, or other NEUROLOGIC: Denies weakness, headache, numbness, change in speech, confusion, seizures, incoordination. PSYCHIATRIC: No concerning psychosocial issues. 12 point review of systems is negative except for those stated above Exam <MARY Blevins-BC - Last Filed: 04/26/18 20:44> Narrative Exam Narrative: GENERAL: Elderly female in no acute distress lying on stretcher HEAD: Atraumatic. Normocephalic. No temporal or scalp tenderness. EYES: Pupils equal round and reactive. Extraocular motions intact. No scleral icterus. No injection or drainage. ENT: Nose without bleeding, purulent drainage or septal hematoma. Throat without erythema, tonsillar hypertrophy or exudate. Uvula midline. Airway patent. NECK: Trachea midline. No JVD or lymphadenopathy. Supple, nontender, no meningeal signs. CARDIOVASCULAR: Regular rate and rhythm RESPIRATORY: Clear to auscultation. Breath sounds equal bilaterally. No wheezes , rales, or rhonchi. GASTROINTESTINAL: Abdomen soft, non-tender, nondistended. No hepato-splenomegaly , or palpable masses. No guarding. EXTREMITIES: Generalized pain to palpation of right hip. Patient is able to lift and hold her right leg off of the stretcher. Positive pedal pulses right foot. Patient is able to flex and extend right foot. BACK: Nontender without deformity or crepitance. No flank tenderness. NEURO: AOx3. SKIN: No rash or erythema. Initial Vital Signs Initial Vital Signs: Vital Signs Temperature 97.9 F 04/26/18 15:15 Pulse Rate 82 04/26/18 15:15 Respiratory Rate 20 04/26/18 15:15 Blood Pressure 187/82 H 04/26/18 15:15 Pulse Oximetry 98 04/26/18 15:15 <Lea Ibarra DO - Last Filed: 04/27/18 03:33> Initial Vital Signs Initial Vital Signs: Vital Signs Temperature 97.9 F 04/26/18 15:15 Pulse Rate 82 04/26/18 15:15 Respiratory Rate 20 04/26/18 15:15 Blood Pressure 187/82 H 04/26/18 15:15 Pulse Oximetry 98 04/26/18 15:15 Course <TAMIA Blevins - Last Filed: 04/26/18 20:44> Orders Ordered: ED Orders 04/26/18 17:17 XR hip w pel if done RT 2V Stat Vital Signs - 8 hr 04/26/18 19:42 Pulse Rate 61 Respiratory Rate 14 Blood Pressure [Left Arm] 143/71 H Pulse Oximetry 97 <Lea Ibarra DO - Last Filed: 04/27/18 03:33> Orders Ordered: ED Orders 04/26/18 17:17 XR hip w pel if done RT 2V Stat Vital Signs - 8 hr 04/26/18 19:42 Pulse Rate 61 Respiratory Rate 14 Blood Pressure [Left Arm] 143/71 H Pulse Oximetry 97 MDM - Extremity (Nontraumatic) <TAMIA Blevins - Last Filed: 04/26/18 20:44> Imaging Data hip xray : Radiologist's impression: [address] [address] XRay Report Signed Patient: Javier Steen MMR#: [id number] : 4Acct:[id number] Age/Sex: 72 / FDate of Service: 04/26/18 Loc: ED Accession Number: [id number] Procedure: XR hip w pel if done RT 2V Ordering Provider: Lea Vivas PROCEDURE: XR HIP W PEL IF DONE RT 2V INDICATIONS: hip pain TECHNIQUE: 2 views of the hip were acquired. COMPARISON: [facility], JACQUIE, XR HIP W PEL IF DONE RT 2V, 04/02/2018, 12: 35. [facility] [id number] W PEL IF PERFORMED, 09/17/2017, 18:11. [facility] JACQUIE, [id number] W PEL IF PERFORMED, 12/10/2016, 10:05. [facility] [id number] W PEL IF PERFORMED, 09/10/2016, 12:09. FINDINGS: Bones: No fractures or dislocations. No suspicious bony lesions. The visualized pelvic ring appears intact. There are moderate degenerative changes of the lumbar spine. There are moderate degenerative changes of the left hip joint. Right total hip arthroplasty is unchanged from prior exam. Soft tissues: Rounded soft tissue calcifications projecting over the left iliac wing are unchanged from prior exam. Pelvic phleboliths are again noted. IMPRESSION: No acute osseous abnormality of the hips bilaterally. Moderate degenerative changes of the left hip joint. Right total hip arthroplasty is unchanged from prior exam. Dictated by: Sunny Cade M.D. on 04/26/2018 at 19:42 Approved by: Sunny Cade M.D. on 04/26/2018 at 19:44 [facility] Narrative Medical decision making narrative: Patient is a 72-year-old female with history of right hip replacement who presents with chief complaint of right hip pain without trauma. She ambulated into the emergency department concerned that her hip is ?out of place. I discussed that the hip is an given that she ambulated in, but she was still concerned as her physical therapist was concerned about a dislocated hip. Thus I agreed to do an x-ray, which showed no acute dislocation. I discussed at length follow up with primary care provider continued pain medications as discussed by PCP. Patient had no questions or concerns upon discharge. Discharge Plan Departure Patient Disposition: Home Clinical Impression: Acute pain of right hip Discharge Date/Time: 04/26/18 20:11 Interventions: ED Discharge Assessment Last Done: 04/26/18 20:11 Instructions: DI for Hip Pain Activity Restrictions/Additional Instructions: Your hip x-rays came negative for any fracture or abnormality today. Please follow-up with primary care provider. Please continue pain medication regimen as set by PCP as well as physical therapy as set by PCP. No acute findings in x -rays today. Prescriptions: No Action nitroglycerin [Nitrostat] 0.4 mg Tablet, Sublingual 0.4 mg SUBLINGUAL Q5-15M PRN (Reason: Chest Pain) Qty: 0 RF: 0 baclofen 10 MG tablet 10 mg PO BEDTIME Qty: 0 RF: 0 aspirin 81 MG tablet,delayed release (DR/EC) 81 mg PO QDAY Qty: 0 RF: 0 bisacodyl [Fleet Laxative] 5 MG tablet,delayed release (DR/EC) 13 tab PO QDAYP PRN (Reason: Constipation) Qty: 0 RF: 0 diphenhydramine HCl [Benadryl Allergy] 25 MG tablet 25 mg PO HSP PRN (Reason: Insomnia) Qty: 0 RF: 0 pantoprazole 40 MG tablet,delayed release (DR/EC) 40 mg PO BID Qty: 0 RF: 0 multivitamin [Multiple Vitamins] 1 EACH tablet 1 tab PO QDAY Qty: 0 RF: 0 sucralfate 1 gram Tablet 1 g PO QID Qty: 0 RF: 0 levothyroxine 112 mcg Tablet 112 mcg PO DAILY Qty: 0 RF: 0 losartan 25 mg tablet 25 mg PO DAILY RF: 0 metoprolol succinate 25 mg tablet extended release 24 hr 12.5 mg PO DAILY RF: 0 apixaban [Eliquis] 5 mg tablet 5 mg PO BID RF: 0 hydrocortisone 10 mg tablet 30 mg PO DAILY RF: 0 vortioxetine 10 mg Tablet 15 mg PO DAILY RF: 0 docusate sodium 100 mg Capsule 100 mg PO BID Qty: 30 RF: 0 oxycodone 5 mg Tablet 5 mg PO Q4HR Qty: 60 RF: 0 Referrals: Joel Chan MD [Primary Care Provider] - <Lea Ibarra DO - Last Filed: 04/27/18 03:33> Cosign ED Attending Cosignature Attestation: I was immediately available in the department for consultation. This documentation has been reviewed and I agree with assessment and plan. Supervised by Lea Ibarra DO
[2018-04-26 17:53] VITALS: BP 160/81; PULSE 63; RESP 16; O2SAT 95
[2018-04-26 19:42] VITALS: BP 143/71; PULSE 61; RESP 14; O2SAT 97
== END 2018-04-26 20:11 | disposition home or self-care (01) ==
PROVIDERS: Emergency Provider Nurse Practitioner Family; PCP Family Medicine
DX: M25.551 Pain in right hip (principal)
CPT/HCPCS: 73502; 99283

== ENCOUNTER → 2018-05-18 11:59 | Outpatient (CLI) | payer MEDICARE, OTHER, SELFPAY ==
[2018-01-07 15:38] VITALS: BMI 27.6
--- NOTE | 2018-05-18 | DI.RAD.S_ITS ---
PROCEDURE: XR HIP W PEL IF DONE LT 2V INDICATIONS: HIP PAIN TECHNIQUE: AP pelvis with lateral view(s) of the left hip(s). COMPARISON: [facility], CT, CT LE RT WO CON, 04/21/2018, 11:17. [facility] [place], CR, XR PELVIS WITH LATERAL HIP RIGHT, 04/11/2018, 16:18. [facility], CR, XR HIP W PEL IF DONE RT 2V, 04/26/2018, 17:39. FINDINGS: Bones: Mildly displaced fractures of the high right superior pubic ramus and the right inferior pubic ramus, which appear new. Moderate left hip degeneration. Lower lumbar degenerative disc disease. Right hip arthroplasty appears unchanged alignment and intact. Heterotopic ossification projects adjacent to the anterior superior iliac spine as before Soft tissues: The visualized bowel gas pattern is normal. No suspicious soft tissue calcifications. IMPRESSION: Acute right superior and inferior pubic ramus fractures. Findings were personally discussed with Dr. Chan on 05/18/18. This is reportedly known. No left-sided fracture identified. Moderate left hip joint degeneration. The Dictated by: Jalil Felton M.D. on 05/18/2018 at 14:19 Approved by: Jalil Felton M.D. on 05/18/2018 at 14:34
== END ==
PROVIDERS: PCP Family Medicine; Visit Provider Family Medicine
DX: M25.552 Pain in left hip (principal); R10.2 Pelvic and perineal pain; S32.591A Other specified fracture of right pubis, initial encounter for closed fracture; M16.12 Unilateral primary osteoarthritis, left hip; M51.36 Other intervertebral disc degeneration, lumbar region; Z96.641 Presence of right artificial hip joint
CPT/HCPCS: 73502

== ENCOUNTER → 2018-06-09 12:52 | Outpatient (CLI) | payer MEDICARE, OTHER, SELFPAY ==
[2018-01-07 15:38] VITALS: BMI 27.6
--- NOTE | 2018-06-09 | DI.RAD.S_ITS ---
PROCEDURE: XR HIP W PEL IF DONE LT 2V INDICATIONS: PAIN IN LEFT AND RIGHT SACRUM TECHNIQUE: AP pelvis with lateral view(s) of the left hip(s). COMPARISON: [facility], CR, XR SACRUM COCCYX MIN 2V, 06/09/2018, 12:59. [facility], CR, XR HIP W PEL IF DONE LT 2V, 05/18/2018, 12:03. FINDINGS: Bones: There are fractures involving the superior and inferior pubic rami, likely subacute given presence of callus. No definitive left pelvic fracture. The left hip is anatomic. Mild degenerative joint disease is present in left hip. No suspicious bony lesions. Note is made of a right hip arthroplasty with a hip prosthesis. Soft tissues: The visualized bowel gas pattern is normal. There are multiple soft tissue calcifications in the left buttock. IMPRESSION: 1. Subacute right superior and inferior pelvic renal fractures. 2. No definitive left hip fracture a subtle nondisplaced fracture cannot be excluded. If clinical symptoms persist or clinical suspicion for pathology is high, CT or MRI is suggested for further evaluation. 3. Heterotopic ossification is in the left buttock suggesting myositis ossificans. 4. Mild degenerative joint disease inleft hip. Dictated by: Simone Sin M.D. on 06/09/2018 at 14:54 Approved by: Simone Sin M.D. on 06/09/2018 at 15:03
--- NOTE | 2018-06-09 | DI.RAD.S_ITS ---
PROCEDURE: XR SACRUM COCCYX MIN 2V INDICATIONS: PAIN IN LEFT AND RIGHT SACRUM TECHNIQUE: 3 views of the sacrum and coccyx acquired. COMPARISON: [facility], CR, XR PELVIS WITH LATERAL HIP RIGHT, 04/11/2018, 16:18. [facility], CR, XR HIP W PEL IF DONE LT 2V, 06/09/2018, 12:59. [facility], CR, XR HIP W PEL IF DONE LT 2V, 05/18/2018, 12:03. [facility], CR, XR HIP W PEL IF DONE RT 2V, 04/26/2018, 17:39. [facility], CT, CT LUMBAR SPINE WO CON, 04/21/2018, 11:17. [facility], CT, CT LE RT WO CON, 04/21/2018, 11:17. FINDINGS: Bones: The right sacral insufficiency fracture seen on CT is difficult to visualize on x-ray. Sagittal sclerosis along the right sacral ala suggests healing. Subacute right superior and inferior pubic ramal fractures are noted. No suspicious bony lesions. Soft tissues: Visualized bowel gas pattern is normal. No suspicious soft tissue densities. IMPRESSION: 1. Right sacral ala fracture seen on CT is difficult to visualize on x-ray. 2. Subacute superior and inferior right pubic ramal fractures. Dictated by: Simone Sin M.D. on 06/09/2018 at 15:08 Approved by: Simone Sin M.D. on 06/09/2018 at 15:12
== END ==
PROVIDERS: PCP Family Medicine; Visit Provider Family Medicine
DX: M25.551 Pain in right hip (principal); M25.552 Pain in left hip
CPT/HCPCS: 72220; 73502

== ENCOUNTER 2018-06-15 07:45 | Inpatient (IN) | payer MEDICARE, OTHER, SELFPAY ==
[2018-01-07 15:38] VITALS: BMI 27.6
[2018-06-15] VITALS (11 sets, daily range): BP systolic 102–158; BP diastolic 61–81; PULSE 75–96; RESP 13–26; TEMP 35.4–36.9; O2SAT 96–100; BMI 22.5
--- NOTE | 2018-06-15 07:48 | ED_ITS ---
HPI - Fall General Chief Complaint: Fall Stated Complaint: glf-head and leg pain Time Seen by Provider: 06/15/18 07:47 Source: EMS Mode of arrival: EMS Limitations: altered mental status History of Present Illness HPI Narrative: Patient is a 73-year-old female reported history of taking Eliquis brought in by EMS after patient's son who she lives with found her on the ground with her walker on top of her. Unknown amount of time that she was down. Unknown as to how she fell. Was reported by EMS that the patient does have a history of dementia and she was at baseline per family. They reported that she was having bilateral leg pain but this was secondary to facial expression when they moved her legs. No other outward signs of trauma. Patient was nonverbal for EMS. Related Data Home Medications Medication Instructions Recorded Confirmed baclofen 10 mg PO BEDTIME #0 10/11/16 06/15/18 aspirin 81 mg PO 0900 #0 10/12/16 06/15/18 diphenhydramine HCl [Benadryl 25 mg PO BEDTIME PRN #0 09/17/17 06/15/18 Allergy] pantoprazole 40 mg PO BID #0 09/17/17 06/15/18 sucralfate 1 g PO QID #0 10/25/17 06/15/18 vortioxetine 15 mg PO 0900 12/29/17 06/15/18 apixaban [Eliquis] 5 mg PO BID 04/26/18 06/15/18 hydrocortisone 20 mg PO BID 04/26/18 06/15/18 metoprolol succinate 12.5 mg PO 2100 04/26/18 06/15/18 levothyroxine 100 mcg PO 0700 06/15/18 06/15/18 losartan 25 mg PO 0900 06/15/18 06/15/18 multivitamin 1 tab PO 0900 06/15/18 06/15/18 oxycodone 10 mg PO QID 06/15/18 06/15/18 Allergies Allergy/AdvReac Type Severity Reaction Status Date / Time Sulfa (Sulfonamide Allergy Intermediate BLISTERS, Verified 06/15/18 07:51 Antibiotics) Hives latex [LATEX] Allergy Mild RASH Verified 06/15/18 07:51 cefaclor Allergy Unknown PT DOES Verified 06/15/18 07:51 NOT REMEMBER ceftriaxone Allergy Unknown PT DOES Verified 06/15/18 07:51 NOT REMEMBER doxycycline [DOXYCYCLINE] Allergy Unknown UNK Verified 06/15/18 07:51 formaldehyde [FORMALDEHYDE] Allergy Unknown UNK Verified 06/15/18 07:51 levofloxacin Allergy Unknown SWELLING, Verified 06/15/18 07:51 edema penicillin G Allergy Unknown my throat Verified 06/15/18 07:51 tightens up, Hives strawberry Allergy Unknown RASH Verified 06/15/18 07:51 terbinafine Allergy Unknown unknown Verified 06/15/18 07:51 terfenadine Allergy Unknown Rash Verified 06/15/18 07:51 trazodone [TRAZODONE] Allergy Unknown Edema Verified 06/15/18 07:51 epinephrine AdvReac Severe PASSED OUT Verified 06/15/18 07:51 prednisone AdvReac Severe FEELS LIKE Verified 06/15/18 07:51 SKIN ON FIRE, Rash zolpidem AdvReac Severe HALLUCINATI Verified 06/15/18 07:51 ONS alprazolam AdvReac Mild forgetfulness, Verified 06/15/18 07:51 hallucinati- IS OK WITH LORAZEPAM & TEMAZEPAM adhesive AdvReac Unknown PAPER TAPE Verified 06/15/18 07:51 OK OTHERS? gabapentin AdvReac Unknown Verified 06/15/18 07:51 procaine AdvReac Unknown (NOVACAINE) Verified 06/15/18 07:51 Edema Review of Systems Review of Systems Unable to obtain secondary to medical condition Exam Initial Vital Signs Initial Vital Signs: Vital Signs Temperature 97.5 F L 06/15/18 07:51 Pulse Rate 89 06/15/18 07:51 Respiratory Rate 16 06/15/18 07:51 Blood Pressure 144/72 H 06/15/18 07:51 Pulse Oximetry 99 06/15/18 07:51 Const General: healthy appearing, well developed, well groomed and No acute distress Orientation: awake and not oriented x3 Limitations: altered mental status HENMT Head: normal to inspection and normocephalic Ears: hearing grossly normal bilaterally Nose: external nose normal Face and sinus: normal facial exam Mouth: oral mucosae normal Eyes Pupils: PERRL Other: Pupils 3 mm equal reactive bilateral Chest Chest: normal inspection of the chest Resp Effort & Inspection: normal respiratory effort Auscultation: clear to auscultation bilaterally Cardio Rate: regular rate Pulses: radial pulses present GI Inspection: non-distended Palpation: soft Skin Lesions: no lesions Rashes: no rashes Neuro Other: Patient did not follow commands to me. Did not open her eyes. Did not speak. Extrem Other: No gross deformities. Did not seem to grimace with movement of the upper extremities. Did grimace with movement of the lower extremities left greater than right. Psych Appearance: well kempt [facility], [facility]1983 Social History household members: children Smoking Status: Never smoker Course Orders Ordered: ED Orders 06/15/18 07:57 XR femur LT min 2V Stat XR femur RT min 2V Stat XR pelvis 1-2V Stat 06/15/18 07:58 CT head/brain wo con Stat 06/15/18 08:30 Ammonia (NH3) Stat Basic Metabolic Panel Stat Complete Blood Count AUTO DIFF Stat Creatine Kinase Stat Ethanol (ETOH) Stat Partial Thromboplastin Time Stat Procalcitonin Stat Prothrombin Time INR Stat Troponin I Stat 06/15/18 09:22 EKG-12 Lead Stat 06/15/18 09:45 Urine Microscopic Stat Vital Signs - 8 hr 06/15/18 07:51 06/15/18 07:59 06/15/18 09:49 Temperature 97.5 F L 97.5 F L Pulse Rate 89 77 Respiratory Rate 16 13 Blood Pressure 144/72 H Blood Pressure [Left Arm] 158/76 H Pulse Oximetry 99 96 06/15/18 10:25 06/15/18 11:00 Temperature Pulse Rate 96 H 90 Respiratory Rate 26 H 15 Blood Pressure Blood Pressure [Left Arm] 102/68 137/74 Pulse Oximetry 100 100 MDM - Fall Medical Records Attestation: I reviewed the patient's medical records. Lab Data Attestation: I reviewed the patient's lab results. Result diagrams: 06/15/18 08:30 06/15/18 08:30 Lab Results 06/15/18 06/15/18 06/15/18 Range/Units 08:30 08:30 08:30 WBC 14.0 H (4.5-11.0) X10^3/uL RBC 5.23 H (4.0-5.2) X10^6/uL Hgb 11.0 L (12.0-16.0) g/dL Hct 35.2 L (36-46) % MCV 67.2 L (80-100) fL MCH 21.0 L (26-34) PG MCHC 31.2 (30-36) % RDW 20.9 H (11.6-14.8) % Plt Count 275 (150-400) X10^3/uL Neut % (Auto) 75.6 H (50-75) % Lymph % (Auto) 15.0 L (25-40) % [place] % (Auto) 8.7 (3-14) % Eos % (Auto) 0.1 L (2-4) % Baso % (Auto) 0.6 (0-2) % Neut # (Auto) 89965 H (7971-2206) /uL RBC Morphology Not Reportable Hypochromasia 2+ H Poikilocytosis 2+ H Microcytosis 3+ H PT 18.8 H (10.1-12.7) SECONDS INR 1.6 H (0.9-1.3) APTT 29 (26.4-36.2) SECONDS Sodium 135 L (137-145) mmol/L Potassium 4.0 (3.4-5.1) mmol/L Chloride 96 L (98-107) mmol/L Carbon Dioxide 28 (22-32) mmol/L BUN 47 H (7-17) mg/dL Creatinine 2.10 H (0.52-1.04) mg/dL Estimated GFR 23.0 L (>60) mL/min BUN/Creatinine Ratio 22.4 H (6-22) Glucose 123 H (80-110) mg/dL Calcium 9.7 (8.4-10.2) mg/dL Ammonia (9-30) umol/L Total Creatine Kinase 50 (30-135) U/L Troponin I 0.034 (0.01-0.034) ng/mL Procalcitonin (<0.5) ng/mL Urine RBC (0-5/HPF) Urine WBC (0-5/HPF) Ur Squamous Epith Cells Urine Bacteria (None) Ur Culture Indicated? Micro UA Comment Ethyl Alcohol < 10 mg/dL 06/15/18 06/15/18 06/15/18 Range/Units 08:30 08:30 09:45 WBC (4.5-11.0) X10^3/uL RBC (4.0-5.2) X10^6/uL Hgb (12.0-16.0) g/dL Hct (36-46) % MCV (80-100) fL MCH (26-34) PG MCHC (30-36) % RDW (11.6-14.8) % Plt Count (150-400) X10^3/uL Neut % (Auto) (50-75) % Lymph % (Auto) (25-40) % [place] % (Auto) (3-14) % Eos % (Auto) (2-4) % Baso % (Auto) (0-2) % Neut # (Auto) (1208-4047) /uL RBC Morphology Hypochromasia Poikilocytosis Microcytosis PT (10.1-12.7) SECONDS INR (0.9-1.3) APTT (26.4-36.2) SECONDS Sodium (137-145) mmol/L Potassium (3.4-5.1) mmol/L Chloride (98-107) mmol/L Carbon Dioxide (22-32) mmol/L BUN (7-17) mg/dL Creatinine (0.52-1.04) mg/dL Estimated GFR (>60) mL/min BUN/Creatinine Ratio (6-22) Glucose (80-110) mg/dL Calcium (8.4-10.2) mg/dL Ammonia < 9.0 L (9-30) umol/L Total Creatine Kinase (30-135) U/L Troponin I (0.01-0.034) ng/mL Procalcitonin 0.06 (<0.5) ng/mL Urine RBC 1-5/hpf (0-5/HPF) Urine WBC 0-1/hpf (0-5/HPF) Ur Squamous Epith Cells 0-1 /hpf Urine Bacteria None seen (None) Ur Culture Indicated? Cult not indicated Micro UA Comment Not Reportable Ethyl Alcohol mg/dL Urine Dip Bedside Urine Glucose Negative Bedside Urine Bilirubin - Negative Bedside Urine Ketone - Negative Urine Specific [place] 1.015 Bedside Urine Occult Blood +/- Bedside Urine pH 6.0 Bedside Urine Protein - Negative Bedside Urine Urobilinogen - Negative Bedside Urine Nitrite - Negative Bedside Urine Leukocytes - Negative Esterase Imaging Data CT scan - head: Radiologist's impression: PROCEDURE: CT HEAD/BRAIN WO CON INDICATIONS: Fall on blood thinners TECHNIQUE: Noncontrast 4.5 mm thick angled axial sections acquired from the foramen magnum to the vertex, with coronal and sagittal reformats. For radiation dose reduction, the following was used: automated exposure control, adjustment of mA and/or kV according to patient size. COMPARISON: [facility], CT, HEAD WITHOUT CONTRAST, 10/23/2016, 21:09. [facility], CT, HEAD WITHOUT CONTRAST, 07/24/2016, 15:42. FINDINGS: Image quality: Mildly reduced by persistent patient motion. CSF spaces: Basal cisterns are patent. No extra-axial fluid collections. The ventricles are symmetric in size and shape. Brain: No intracranial bleeds or masses. There is cerebral volume loss for age , with resultant ventricular and sulcal prominence. There are periventricular and deep white matter chronic small vessel ischemic changes. There is intracranial internal carotid artery atherosclerosis. Skull and face: Calvarium and visualized facial bones appear intact, without suspicious lesions. Sinuses: Visualized sinuses and mastoids are clear. IMPRESSION: Patient motion during image acquisition mildly degrades the quality of the study but no hemorrhage or brain parenchymal injury is found. Normal for age. Dictated by: Reinaldo Calderón M.D. on 06/15/2018 at 8:31 Approved by: Reinaldo Calderón M.D. on 06/15/2018 at 8:31 X-ray pelvis: Radiologist's impression: PROCEDURE: XR PELVIS 1-2V INDICATIONS: Fall TECHNIQUE: Single view(s) of the pelvis acquired. COMPARISON: [facility], CR, XR HIP W PEL IF DONE LT 2V, 06/09/2018, 12: 59. [facility]opedic [facility], CR, XR PELVIS WITH LATERAL HIP RIGHT, 04/11/2018, 16:18. [facility] [place], CR, XR PELVIS 1 OR 2VW, 08/14/2016, 11:47. FINDINGS: Bones: Healing fractures are noted within the right inferior and superior obturator ring. These findings are similar in appearance to the study dated 06/09/18. No findings to suggest displacement of the healing fractures. No new fracture or dislocation. Right hip arthroplasty is intact. Soft tissues: Visualized bowel gas pattern is normal. No suspicious soft tissue calcifications. Phleboliths are present within the pelvis. IMPRESSION: Stable appearance of the right obturator ring fractures which appear partially healed. Dictated by: Lety Montalvo M.D. on 06/15/2018 at 8:39 X ray right femur: Radiologist's impression: PROCEDURE: XR FEMUR RT MIN 2V INDICATIONS: fall pain with movement TECHNIQUE: 4 views of the femur were acquired. COMPARISON: [facility], CR, XR PELVIS WITH LATERAL HIP RIGHT, 04/11/2018, 16:18. [facility], CR, XR HIP W PEL IF DONE LT 2V, 05/18/2018, 12:03. [facility], CR, XR HIP W PEL IF DONE RT 2V, 04/26/2018 , 17:39. FINDINGS: Bones: There are mildly displaced fractures of the right superior and inferior pubic rami with mild sclerosis along the margins. There is partial callous formation. Findings are compatible with subacute fractures. There is sclerosis within the visualized right sacral ala also compatible with a subacute fracture. A right hip prosthesis is redemonstrated. No associated periprosthetic fracture or new periprosthetic lucencies. No change in alignment. The visualized distal femur appears intact. Soft tissues: There are scattered vascular calcifications and phleboliths in the right hemipelvis. IMPRESSION: 1. Healing subacute fractures of the right superior and inferior pubic rami and right sacral ala. 2. No new acute fracture or definite evidence of hardware failure. Dictated by: Jayme Chacon M.D. on 06/15/2018 at 9:01 Approved by: Jayme Chacon M.D. on 06/15/2018 at 9:08 X-ray left femur: Radiologist's impression: PROCEDURE: XR FEMUR LT MIN 2V INDICATIONS: fall pain with movement TECHNIQUE: 4 views of the femur were acquired. COMPARISON: [facility], CR, XR HIP W PEL IF DONE LT 2V, 05/18/2018, 12:03. FINDINGS: Bones: No fracture or dislocation of the left femur. There is a left knee prosthesis redemonstrated without new suspicious periprosthetic lucencies on the limited views obtained. The visualized pelvis demonstrates healing subacute fractures of the right superior and inferior pubic rami and bilateral sacral ala. A right hip prosthesis is partially visualized. Soft tissues: No suspicious soft tissue calcifications or masses. IMPRESSION: 1. No new acute fractures identified. 2. Subacute healing fractures of the right superior and inferior pubic rami and bilateral sacral ala. Dictated by: Jayme Chacon M.D. on 06/15/2018 at 9:09 Approved by: Jayme Chacon M.D. on 06/15/2018 at 9:11 ECG Data Attestation: I personally reviewed and interpreted this ECG as follows: Prior ECG tracings: not available for review Interpretation: Sinus rhythm Ventricular rate 89 Normal axis Normal intervals Normal QRS Normal QTC No ST T wave changes MDM Narrative Medical decision making narrative: Patient's family here in the emergency department. There is no injury found on the workup here from the fall. Patient did become much more responsive after being here in the emergency department. She was able to talk. Eyes were open like normal. She eventually became back to ?baseline? per the family who are at bedside. Patient's troponin today is at the upper limit of normal. I did found out that approximately 2 weeks ago she was admitted to an outside facility for chest pain. Had an echocardiogram which was unremarkable. I was able to review this record. Does not appear that this was a stress echo. Had a undetectable troponin at that time. Patient has no ischemic changes on the EKG today. She again is complaining of chest pain but unsure if this is new or old. I discussed admitting the patient with Dr. Epps who is the hospitalist on today who agrees to admit the patient. I discussed admitting the patient with the patient and the family. They both expressed understanding and agreement with this plan. Discharge Plan Departure Patient Disposition: Admitted as Observation Clinical Impression: Chest pain, Acute renal insufficiency, Fall Discharge Date/Time: 06/15/18 11:44 Admit Date/Time: 06/15/18 11:41 Admit Provider: Lisa Epps
--- NOTE | 2018-06-15 07:57 | DI.RAD.S_ITS ---
PROCEDURE: XR PELVIS 1-2V INDICATIONS: Fall TECHNIQUE: Single view(s) of the pelvis acquired. COMPARISON: [facility], CR, XR HIP W PEL IF DONE LT 2V, 06/09/2018, 12:59. [facility], CR, XR PELVIS WITH LATERAL HIP RIGHT, 04/11/2018, 16:18. [facility] [place], CR, XR PELVIS 1 OR 2VW, 08/14/2016, 11:47. FINDINGS: Bones: Healing fractures are noted within the right inferior and superior obturator ring. These findings are similar in appearance to the study dated 06/09/18. No findings to suggest displacement of the healing fractures. No new fracture or dislocation. Right hip arthroplasty is intact. Soft tissues: Visualized bowel gas pattern is normal. No suspicious soft tissue calcifications. Phleboliths are present within the pelvis. IMPRESSION: Stable appearance of the right obturator ring fractures which appear partially healed. Dictated by: Lety Montalvo M.D. on 06/15/2018 at 8:39 Approved by: Lety Montalvo M.D. on 06/15/2018 at 8:42
--- NOTE | 2018-06-15 07:57 | DI.RAD.S_ITS ---
PROCEDURE: XR FEMUR RT MIN 2V INDICATIONS: fall pain with movement TECHNIQUE: 4 views of the femur were acquired. COMPARISON: [facility]opedic [facility], CR, XR PELVIS WITH LATERAL HIP RIGHT, 04/11/2018, 16:18. [facility], CR, XR HIP W PEL IF DONE LT 2V, 05/18/2018, 12:03. [facility], CR, XR HIP W PEL IF DONE RT 2V, 04/26/2018, 17:39. FINDINGS: Bones: There are mildly displaced fractures of the right superior and inferior pubic rami with mild sclerosis along the margins. There is partial callous formation. Findings are compatible with subacute fractures. There is sclerosis within the visualized right sacral ala also compatible with a subacute fracture. A right hip prosthesis is redemonstrated. No associated periprosthetic fracture or new periprosthetic lucencies. No change in alignment. The visualized distal femur appears intact. Soft tissues: There are scattered vascular calcifications and phleboliths in the right hemipelvis. IMPRESSION: 1. Healing subacute fractures of the right superior and inferior pubic rami and right sacral ala. 2. No new acute fracture or definite evidence of hardware failure. Dictated by: Jayme Chacon M.D. on 06/15/2018 at 9:01 Approved by: Jayme Chacon M.D. on 06/15/2018 at 9:08
--- NOTE | 2018-06-15 07:57 | DI.RAD.S_ITS ---
PROCEDURE: XR FEMUR LT MIN 2V INDICATIONS: fall pain with movement TECHNIQUE: 4 views of the femur were acquired. COMPARISON: [facility], CR, XR HIP W PEL IF DONE LT 2V, 05/18/2018, 12:03. FINDINGS: Bones: No fracture or dislocation of the left femur. There is a left knee prosthesis redemonstrated without new suspicious periprosthetic lucencies on the limited views obtained. The visualized pelvis demonstrates healing subacute fractures of the right superior and inferior pubic rami and bilateral sacral ala. A right hip prosthesis is partially visualized. Soft tissues: No suspicious soft tissue calcifications or masses. IMPRESSION: 1. No new acute fractures identified. 2. Subacute healing fractures of the right superior and inferior pubic rami and bilateral sacral ala. Dictated by: Jayme Chacon M.D. on 06/15/2018 at 9:09 Approved by: Jayme Chacon M.D. on 06/15/2018 at 9:11
--- NOTE | 2018-06-15 07:58 | DI.CT.S_ITS ---
PROCEDURE: CT HEAD/BRAIN WO CON INDICATIONS: Fall on blood thinners TECHNIQUE: Noncontrast 4.5 mm thick angled axial sections acquired from the foramen magnum to the vertex, with coronal and sagittal reformats. For radiation dose reduction, the following was used: automated exposure control, adjustment of mA and/or kV according to patient size. COMPARISON: [facility], CT, HEAD WITHOUT CONTRAST, 10/23/2016, 21:09. [facility], CT, HEAD WITHOUT CONTRAST, 07/24/2016, 15:42. FINDINGS: Image quality: Mildly reduced by persistent patient motion. CSF spaces: Basal cisterns are patent. No extra-axial fluid collections. The ventricles are symmetric in size and shape. Brain: No intracranial bleeds or masses. There is cerebral volume loss for age, with resultant ventricular and sulcal prominence. There are periventricular and deep white matter chronic small vessel ischemic changes. There is intracranial internal carotid artery atherosclerosis. Skull and face: Calvarium and visualized facial bones appear intact, without suspicious lesions. Sinuses: Visualized sinuses and mastoids are clear. IMPRESSION: Patient motion during image acquisition mildly degrades the quality of the study but no hemorrhage or brain parenchymal injury is found. Normal for age. Dictated by: Reinaldo Calderón M.D. on 06/15/2018 at 8:31 Approved by: Reinaldo Calderón M.D. on 06/15/2018 at 8:31
[2018-06-15 08:44] LABS: Add Manual Diff / Slide Review NO; Basophils Percent Auto 0.6 % (0-2); Eosinophils Percent Auto 0.1 % (2-4); Hematocrit 35.2 % (36-46); Mean Corpuscular HGB Conc 31.2 % (30-36); Mean Corpuscular Volume 67.2 fL (80-100); Monocytes Percent Auto 8.7 % (3-14); Neutrophils Absolute Auto 10600 /uL (1500-7000); Neutrophils Percent Auto 75.6 % (50-75); Platelet Count 275 X10^3/uL (150-400); Red Blood Cell Count 5.23 X10^6/uL (4.0-5.2); Red Cell Distribution Width 20.9 % (11.6-14.8)
--- NOTE | 2018-06-15 08:48 | PC.NURSE ---
pt awake, disoriented with place, does not recall falling, now reports, right 5th digit pain, left foot fat numbness.
[2018-06-15 08:50] LABS: INR 1.6 (0.9-1.3); Prothrombin Time 18.8 SECONDS (10.1-12.7)
[2018-06-15 08:52] LABS: PTT Partial Thromboplastin Tim 29 SECONDS (26.4-36.2)
[2018-06-15 08:55] LABS: BUN Creatinine Ratio 22.4 (6-22); Blood Urea Nitrogen 47 mg/dL (7-17); Calcium 9.7 mg/dL (8.4-10.2); Carbon Dioxide 28 mmol/L (22-32); Chloride 96 mmol/L (98-107); Creatine Kinase 50 U/L (30-135); Ethanol (ETOH) < 10 mg/dL; Glucose 123 mg/dL (80-110); HEMOLYSIS < 15 (0-50); Hypochromasia 2+; Microcytosis 3+; Poikilocytosis 2+; Sodium 135 mmol/L (137-145)
[2018-06-15 08:56] LABS: Ammonia (NH3) < 9.0 umol/L (9-30)
[2018-06-15 09:07] LABS: Troponin I 0.034 ng/mL (0.01-0.034)
[2018-06-15 09:11] LABS: Procalcitonin 0.06 ng/mL (<0.5)
[2018-06-15 10:09] LABS: Bacteria Urine None Seen
[2018-06-15 10:17] LABS: Culture Indicated Urine Cult Not Indicated; RBC Urine 1-5/HPF (0-5/HPF); Squamous Epithelial Cell Urine 0-1 /HPF; WBC Urine 0-1/HPF (0-5/HPF)
[2018-06-15] MEDS: DEXTROSE 5%-0.45% NS 1,000 ML 100 ML IV (13:53)
--- NOTE | 2018-06-15 15:03 | P.HP_ITS ---
History of Present Illness Date Patient Seen: 06/15/18 Chief complaint: glf-head and leg pain Narrative: Patient is a 73-year-old female with a history of dementia who lives at home with her son. He was asleep when he heard his mother fall and found her on the ground over her walker. It is unclear how she got to the floor. It is unclear whether she passed out. Patient is unable to provide any history. She appears to have been going to the bathroom and lost her balance. The patient was brought into the emergency department. She was initially poorly responsive. However she was more responsive but confused. The daughter reports she has been increasingly more confused over the past several days. They are not aware of any fever or chills. Patient has had no cough or shortness of breath. She has had no nausea vomiting or diarrhea. Further history is difficult to obtain as patient is unable to provide any history. The patient was evaluated in the emergency department. There was concern regarding possible fracture. However x-ray of the pelvis revealed old fractures. There was no evidence of hip fracture. Cat scan of the brain was obtained and there was no acute injury to the brain. Patient was found to have a mildly elevated troponin at 0.034. She had complained of chest pain and was seen at [facility] on Wednesday. Her EKG was unremarkable. Given her mildly elevated troponin it was felt she would be best served by being admitted to the hospital. In addition the patient was found to have acute renal failure. She does have known [place]'s disease. Family notes she has been eating and drinking normally however she was found to have acute renal failure and admitted to the hospital for further evaluation. 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) Depression (Acute) Diarrhea (Acute) Diverticulosis (Acute) Dyspnea on exertion (Acute) Fall (Acute) Femur fracture (Acute) GERD (gastroesophageal reflux disease) (Acute) GI bleed (Acute ~12/11/17) Generalized headaches (Acute) Generalized weakness (Acute) Hallux valgus (acquired), right foot (Acute) Hammer toe of right foot (Acute ~10/25/17) Head injury (Acute) Hiatal hernia (Acute) Hip fracture (Acute) History of UTI (Acute) History of colitis (Acute) History of confusion (Acute) History of headache (Acute) History of hysterectomy (Acute) History of ulcer disease (Acute) Hyperthyroidism, subclinical (Acute) Hypokalemia (Acute) Hypotension (Acute) Hypothyroidism (Acute) Impaired vision (Acute) Incontinence (Acute) Myocardial infarction (Acute) Nausea (Acute) Nausea & vomiting (Acute) Opioid dependence (Acute) Ovarian cancer (Acute) PTSD (post-traumatic stress disorder) (Acute) Pneumonia (Acute) Right foot pain (Acute) Sepsis (Acute) Septic joint of left knee joint (Acute) Sialadenitis (Acute) Sleep apnea (Acute) Urinary incontinence (Acute) Surgical History History of Radhika fundoplication (Acute) History of arthroplasty of both knees (Acute) History of bilateral oophorectomies (Acute) History of bladder surgery (Acute) History of colonoscopy with polypectomy (Acute) History of coronary artery stent placement (Acute) History of esophagogastroduodenoscopy (EGD) (Acute) History of tonsillectomy (Acute) History of total right hip arthroplasty (Acute) Hx of appendectomy (Acute) Hx of cardiac cath (Acute ~2012) Hx of total knee arthroplasty (Acute) S/P surgical manipulation of ankle joint (Acute) Family & Social History Family History: Reviewed 06/15/18 by Lisa Epps MD Social History: household members children Prior Living Arrangements Apartment/Condo Safety & Behavioral: Feels Safe in Current Yes Environment Been Physically Hurt or No Threatened By a Person Suicidal Ideation Description None Tobacco & Substance use: Smoking Status Never smoker alcohol intake frequency holiday/special occasion Substance Use Type does not use,opiates Meds Home Medications Medication Instructions Recorded Confirmed Type baclofen 10 mg PO BEDTIME #0 10/11/16 06/15/18 History aspirin 81 mg PO 0900 #0 10/12/16 06/15/18 History diphenhydramine HCl [Benadryl 25 mg PO BEDTIME PRN #0 09/17/17 06/15/18 History Allergy] pantoprazole 40 mg PO BID #0 09/17/17 06/15/18 History sucralfate 1 g PO QID #0 10/25/17 06/15/18 History vortioxetine 15 mg PO 0900 12/29/17 06/15/18 History apixaban [Eliquis] 5 mg PO BID 04/26/18 06/15/18 History hydrocortisone 20 mg PO BID 04/26/18 06/15/18 History metoprolol succinate 12.5 mg PO 2100 04/26/18 06/15/18 History levothyroxine 100 mcg PO 0700 06/15/18 06/15/18 History losartan 25 mg PO 0900 06/15/18 06/15/18 History multivitamin 1 tab PO 0900 06/15/18 06/15/18 History oxycodone 10 mg PO QID 06/15/18 06/15/18 History Allergies Allergy/AdvReac Type Severity Reaction Status Date / Time Sulfa (Sulfonamide Allergy Intermediate BLISTERS, Verified 06/15/18 07:51 Antibiotics) Hives latex [LATEX] Allergy Mild RASH Verified 06/15/18 07:51 cefaclor Allergy Unknown PT DOES Verified 06/15/18 07:51 NOT REMEMBER ceftriaxone Allergy Unknown PT DOES Verified 06/15/18 07:51 NOT REMEMBER doxycycline [DOXYCYCLINE] Allergy Unknown UNK Verified 06/15/18 07:51 formaldehyde [FORMALDEHYDE] Allergy Unknown UNK Verified 06/15/18 07:51 levofloxacin Allergy Unknown SWELLING, Verified 06/15/18 07:51 edema penicillin G Allergy Unknown my throat Verified 06/15/18 07:51 tightens up, Hives strawberry Allergy Unknown RASH Verified 06/15/18 07:51 terbinafine Allergy Unknown unknown Verified 06/15/18 07:51 terfenadine Allergy Unknown Rash Verified 06/15/18 07:51 trazodone [TRAZODONE] Allergy Unknown Edema Verified 06/15/18 07:51 epinephrine AdvReac Severe PASSED OUT Verified 06/15/18 07:51 prednisone AdvReac Severe FEELS LIKE Verified 06/15/18 07:51 SKIN ON FIRE, Rash zolpidem AdvReac Severe HALLUCINATI Verified 06/15/18 07:51 ONS alprazolam AdvReac Mild forgetfulness, Verified 06/15/18 07:51 hallucinati- IS OK WITH LORAZEPAM & TEMAZEPAM adhesive AdvReac Unknown PAPER TAPE Verified 06/15/18 07:51 OK OTHERS? gabapentin AdvReac Unknown Verified 06/15/18 07:51 procaine AdvReac Unknown (NOVACAINE) Verified 06/15/18 07:51 Edema Review of Systems Review of Systems unobtainable due to mental status Exam Vital Signs (past 8 hours): - 06/15/18 07:51 06/15/18 07:59 06/15/18 09:49 Temperature 97.5 F L 97.5 F L Pulse Rate 89 77 Respiratory Rate 16 13 Blood Pressure 144/72 H Blood Pressure [Left Arm] 158/76 H Pulse Oximetry 99 96 06/15/18 10:25 06/15/18 11:00 06/15/18 12:00 Temperature Pulse Rate 96 H 90 79 Respiratory Rate 26 H 15 16 Blood Pressure Blood Pressure [Left Arm] 102/68 137/74 115/61 Pulse Oximetry 100 100 97 06/15/18 12:40 Temperature 95.7 F L Pulse Rate 75 Respiratory Rate 14 Blood Pressure 147/81 H Blood Pressure [Left Arm] Pulse Oximetry 99 Oxygen Delivery Method Room Air Narrative Exam Narrative: Pleasant ill-appearing female minimally responsive HEENT normocephalic atraumatic, sclerae sclerae are anicteric Oropharynx is clear, neck is supple Lungs: Clear to auscultation Cardiac exam: Regular rate and rhythm normal S1 and S2 Abdomen: Soft nontender nondistended without hepatosplenomegaly Extremities: No edema Neuro exam patient is arousable, does move extremities, but is minimally verbal. Objective Labs Result Diagrams: 06/15/18 08:30 06/15/18 08:30 Labs: Laboratory Results - last 24 hr 06/15/18 06/15/18 06/15/18 08:30 08:30 08:30 WBC 14.0 H RBC 5.23 H Hgb 11.0 L Hct 35.2 L MCV 67.2 L MCH 21.0 L MCHC 31.2 RDW 20.9 H Plt Count 275 Neut % (Auto) 75.6 H Lymph % (Auto) 15.0 L [place] % (Auto) 8.7 Eos % (Auto) 0.1 L Baso % (Auto) 0.6 Neut # (Auto) 80188 H RBC Morphology Not Reportable Hypochromasia 2+ H Poikilocytosis 2+ H Microcytosis 3+ H PT 18.8 H INR 1.6 H APTT 29 Sodium 135 L Potassium 4.0 Chloride 96 L Carbon Dioxide 28 BUN 47 H Creatinine 2.10 H Estimated GFR 23.0 L BUN/Creatinine Ratio 22.4 H Glucose 123 H Calcium 9.7 Ammonia Total Creatine Kinase 50 Troponin I 0.034 Procalcitonin Urine RBC Urine WBC Ur Squamous Epith Cells Urine Bacteria Ur Culture Indicated? Micro UA Comment Ethyl Alcohol < 10 06/15/18 06/15/18 06/15/18 08:30 08:30 09:45 WBC RBC Hgb Hct MCV MCH MCHC RDW Plt Count Neut % (Auto) Lymph % (Auto) [place] % (Auto) Eos % (Auto) Baso % (Auto) Neut # (Auto) RBC Morphology Hypochromasia Poikilocytosis Microcytosis PT INR APTT Sodium Potassium Chloride Carbon Dioxide BUN Creatinine Estimated GFR BUN/Creatinine Ratio Glucose Calcium Ammonia < 9.0 L Total Creatine Kinase Troponin I Procalcitonin 0.06 Urine RBC 1-5/hpf Urine WBC 0-1/hpf Ur Squamous Epith Cells 0-1 /hpf Urine Bacteria None seen Ur Culture Indicated? Cult not indicated Micro UA Comment Not Reportable Ethyl Alcohol Assessment & Plan (1) Acute renal insufficiency: Problem details: Suspect prerenal azotemia, we will continue IV hydration, hold losartan Current visit: Yes Status: Acute (2) Fall: Problem details: PT OT consultation Qualifiers: Encounter type: initial encounter Qualified Code(s): W19.XXXA - Unspecified fall, initial encounter Current visit: Yes Status: Acute (3) Metabolic encephalopathy: Problem details: Will start low-dose Seroquel at night, patient likely has progressive dementia Current visit: No Status: Acute (4) Addisons disease: Problem details: Will start IV hydrocortisone until patient can take oral hydrocortisone Current visit: Yes Status: Acute (5) Elevated troponin: Problem details: Will continue aspirin check lipid continue beta-alvarado Current visit: Yes Status: Acute Plan: Assessment/Plan Narrative: Patient is a full code and will record that note that the recording Quality VTE Deep Vein Thrombosis/Pulmonary Embolism Present on Admission: No
--- NOTE | 2018-06-15 15:38 | PC.NURSE ---
1240 Pt arrived via stretcher from ED. Pt is awake, confused, Can state first name only. SL in place RAC. 1300 Family at bedside. Pt able to take in water w/o diff. SR up/alarms on. Pt has an allevyn on to L calf abrasion from fall at home today. Bruise noted to Kev moreno. Pt has a HX of FX pelvis from previous fall.
[2018-06-15 18:03] LABS: Creatine Kinase 102 U/L (30-135)
[2018-06-15 18:15] LABS: Troponin I 0.041 ng/mL (0.01-0.034)
[2018-06-15 18:18] LABS: CKMB % Relative Index 5.2 % (1.5-5.0); Creatine Kinase MB 5.32 ng/mL (<2.37)
--- NOTE | 2018-06-15 21:07 | PC.NURSE ---
Patient at HS is very difficult to arouse from sleep. This RN asked patient to practice swallowing without water and patient said yes but did not do it; this RN asked patient to take sip of water, patient said yes but would not suck from straw. Patient had eaten dinner just fine without assistance, per CERTIFIED ORTHOPTIST. Held all HS PO medications d/t patient unable to wake up and stay awake long enough to swallow medications safely, even after being repositioned and HOB at 90 degrees. call light within reach.
[2018-06-16] VITALS (11 sets, daily range): BP systolic 109–152; BP diastolic 68–99; PULSE 72–79; RESP 16–18; TEMP 36.4–36.8; O2SAT 94–99
[2018-06-16] MEDS: HYDROCORTISONE 100 MG/2 ML VIAL 50 MG IV (00:04)
[2018-06-16] MEDS: DEXTROSE 5%-0.45% NS 1,000 ML 100 ML IV (00:07)
--- NOTE | 2018-06-16 02:04 | PC.NURSE ---
Addendum entered by Mabel Neville R.N. 06/16/18 06:14: Has been more awake past several hours and using call light to let staff know when she is incontinent and when she wants to be turned. Very pleasant and cooperative but remains confused although does know she lives in [place] with son. Expresses gratefulness for staff providing care. Taking po fluids and meds without any problems. Original Note: Patient is mostly somnolent but does arouse to voice but does not stay awake long enough to answer all questions. Responses she does make are clear. Did know her name and the month; had birthday correct except did not know year or age. Did state she is in [place]. Breath sounds CTA with RA sat of 94%. HRR and was SR w/1st degree AVB on telemetry reading. Denies nausea. BT present and abdomen is soft. Is incontinent of urine. Is not turning herself so staff is repositioning q2h and changing incontinent pad. Has reported skin tear on anterior left LE and has Allevyn dressing covering which is intact and has quarter size amount of sanguinous drainage on dressing. Brusing on bilateral LE noted. Denies pain when asked and has FLACC score of 0. Fall risk score is high and bed alarm is activated.
[2018-06-16 05:37] LABS: Add Manual Diff / Slide Review NO; Basophils Percent Auto 0.2 % (0-2); Eosinophils Percent Auto 0.2 % (2-4); Hematocrit 32.3 % (36-46); Hemoglobin 10.3 g/dL (12.0-16.0); Lymphocytes Percent Auto 12.1 % (25-40); Mean Corpuscular Hemoglobin 21.2 PG (26-34); Mean Corpuscular Volume 66.1 fL (80-100); Monocytes Percent Auto 3.7 % (3-14); Neutrophils Absolute Auto 6800 /uL (1500-7000); Neutrophils Percent Auto 83.8 % (50-75); Platelet Count 253 X10^3/uL (150-400); Red Blood Cell Count 4.88 X10^6/uL (4.0-5.2); Red Cell Distribution Width 21.1 % (11.6-14.8); White Blood Cell Count 8.1 X10^3/uL (4.5-11.0)
[2018-06-16 05:46] LABS: Alanine Aminotransferase 25 IU/L (9-52); Albumin 3.7 g/dL (3.5-5.0); Albumin Globulin Ratio 1.5 (1.0-2.8); Alkaline Phosphatase 198 U/L (38-126); Aspartate Aminotransferase 31 IU/L (14-36); BUN Creatinine Ratio 26.3 (6-22); Bilirubin Total 0.6 mg/dL (0.2-1.3); Blood Urea Nitrogen 21 mg/dL (7-17); Carbon Dioxide 28 mmol/L (22-32); Chloride 100 mmol/L (98-107); Estimated Glomerular Filt Rate > 60.0 mL/min (>60); Globulin 2.4 g/dL (1.7-4.1); Glucose 172 mg/dL (80-110); HEMOLYSIS < 15 (0-50); Magnesium 1.8 mg/dL (1.6-2.3); Potassium 3.5 mmol/L (3.4-5.1); Sodium 136 mmol/L (137-145); Total Protein 6.1 g/dL (6.3-8.2)
[2018-06-16 05:55] LABS: B Type Natriuretic Peptide < 100 (<100)
[2018-06-16 05:58] LABS: Troponin I 0.025 ng/mL (0.01-0.034)
[2018-06-16] MEDS: LEVOTHYROXINE 100 MCG TABLET PO (06:02)
[2018-06-16 06:03] LABS: Poikilocytosis 2+
[2018-06-16 06:04] LABS: Anisocytosis 1+; Microcytosis 3+; Schistocytes 1+
[2018-06-16 06:05] LABS: Hypochromasia 2+
[2018-06-16 06:30] LABS: Thyroid Stimulating Hormone 6.98 uIU/mL (0.47-4.68)
--- NOTE | 2018-06-16 09:55 | PC.NURSE ---
Addendum entered by Yuki Arguello R.N. 06/16/18 13:34: Updated Daughter Arleen about PT and likely not safe to be home alone during the day. OT will see Pt this afternoon. Original Note: A/O to self and situation, delay noted to speech, with some word finding difficulty. Pt is anxious about care and about staff interactions. Incont to brief multiple times this morning. Able to makes needs known with staff. Call light in reach. IVF infusing. Dr Epps into see Pt and will participate with PT and OT today.
[2018-06-16] MEDS: ASPIRIN EC 81 MG TABLET PO (11:26)
[2018-06-16] MEDS: APIXABAN 5 MG TABLET PO ×2 (11:26→20:19)
[2018-06-16] MEDS: DOCUSATE 100 MG CAPSULE PO ×2 (11:26→20:19)
[2018-06-16] MEDS: METOPROLOL 12.5 MG TABLET PO (11:27)
--- NOTE | 2018-06-16 12:05 | PM.PN.1 ---
Subjective Date Patient Seen: 06/16/18 Interval history: Patient is awake and alert today. She is more responsive but at times appears to have continued to be confused. She is slow to respond. She has no specific complaints. Patient was evaluated with PT and OT. The recommendations is that she is a standby one-person assist. Given the fact that she is home alone at periods of time during the day it appears that she may be unsafe to return to her prior level of care. Patient very likely will need in-home care at home. Exam Vital Signs (past 8 hours): - 06/16/18 07:00 06/16/18 08:00 Temperature 98.3 F Pulse Rate 77 Respiratory Rate 16 Blood Pressure 142/79 H Pulse Oximetry 98 98 Oxygen Delivery Method Room Air Oxygen Flow Rate 0 Narrative Exam Narrative: Pleasant female, resting comfortably in no obvious distress Lungs: Clear to auscultation Cardiac exam: Regular rate and rhythm normal S1 and S2 Abdomen: Soft and nontender Extremity: No edema Neuro exam: Patient is awake and alert. She is able to move all extremities. She is very slow to respond. At time she is somewhat confused. Objective Labs Result Diagrams: 06/16/18 05:08 06/16/18 05:08 Labs: Laboratory Results - last 24 hr 06/15/18 06/16/18 06/16/18 17:17 05:08 05:08 WBC 8.1 RBC 4.88 Hgb 10.3 L Hct 32.3 L MCV 66.1 L MCH 21.2 L MCHC 32.0 RDW 21.1 H Plt Count 253 Neut % (Auto) 83.8 H Lymph % (Auto) 12.1 L [place] % (Auto) 3.7 Eos % (Auto) 0.2 L Baso % (Auto) 0.2 Neut # (Auto) 6800 RBC Morphology See below Hypochromasia 2+ H Poikilocytosis 2+ H Anisocytosis 1+ H Microcytosis 3+ H Schistocytes 1+ H Sodium 136 L Potassium 3.5 Chloride 100 Carbon Dioxide 28 BUN 21 H Creatinine 0.80 Estimated GFR > 60.0 BUN/Creatinine Ratio 26.3 H Glucose 172 H Calcium 9.0 Magnesium 1.8 Total Bilirubin 0.6 AST 31 ALT 25 Alkaline Phosphatase 198 H Total Creatine Kinase 102 CK-MB (CK-2) 5.32 H CK-MB (CK-2) Rel Index 5.2 H Troponin I 0.041 H 0.025 B-Natriuretic Peptide < 100 Total Protein 6.1 L Albumin 3.7 Globulin 2.4 Albumin/Globulin Ratio 1.5 TSH 06/16/18 05:08 WBC RBC Hgb Hct MCV MCH MCHC RDW Plt Count Neut % (Auto) Lymph % (Auto) [place] % (Auto) Eos % (Auto) Baso % (Auto) Neut # (Auto) RBC Morphology Hypochromasia Poikilocytosis Anisocytosis Microcytosis Schistocytes Sodium Potassium Chloride Carbon Dioxide BUN Creatinine Estimated GFR BUN/Creatinine Ratio Glucose Calcium Magnesium Total Bilirubin AST ALT Alkaline Phosphatase Total Creatine Kinase CK-MB (CK-2) CK-MB (CK-2) Rel Index Troponin I B-Natriuretic Peptide Total Protein Albumin Globulin Albumin/Globulin Ratio TSH 6.98 H Assessment & Plan (1) Elevated troponin: Problem details: Troponin has normalized. Patient reports constant chest pain, However with normal Troponin this is unlikely cardiac related Current visit: Yes Status: Acute (2) Acute renal insufficiency: Problem details: Improved. Will resume her usual home medications Current visit: Yes Status: Acute (3) Addisons disease: Problem details: Will start IV hydrocortisone until patient can take oral hydrocortisone Resume usual medications Current visit: Yes Status: Acute (4) Fall: Problem details: PT OT consultation Qualifiers: Encounter type: initial encounter Qualified Code(s): W19.XXXA - Unspecified fall, initial encounter Current visit: Yes Status: Acute (5) Metabolic encephalopathy: Problem details: Will start low-dose Seroquel at night, patient likely has progressive dementia Current visit: No Status: Acute (6) Dementia: Problem details: As above. She will likely need a higher level of care at home. Current visit: Yes Status: Acute Plan: Assessment/Plan Narrative: Will discuss with family the need for increase supervision if at home alone Quality VTE Deep Vein Thrombosis/Pulmonary Embolism Present on Admission: No
--- NOTE | 2018-06-16 12:42 | PT.IIE ---
Addendum entered and electronically signed by Connie Bradley, PT 06/16/18 13:20: incorrect carry over of WB status from pt's previous hospital admission Original Note: Current Diagnoses Primary adrenocortical insufficiency (06/15/18) Unspecified dementia without behavioral disturbance (06/15/18) Metabolic encephalopathy (06/15/18) Disorder of kidney and ureter, unspecified (06/15/18) Abnormal levels of other serum enzymes (06/15/18) Unspecified fall, initial encounter (06/15/18) Surgical History (Last Reviewed 06/15/18 @ 16:37 by Lisa Epps MD) History of Radhika fundoplication (Acute) History of arthroplasty of both knees (Acute) History of bilateral oophorectomies (Acute) History of bladder surgery (Acute) History of colonoscopy with polypectomy (Acute) History of coronary artery stent placement (Acute) History of esophagogastroduodenoscopy (EGD) (Acute) History of tonsillectomy (Acute) History of total right hip arthroplasty (Acute) Hx of appendectomy (Acute) Hx of cardiac cath (Acute ~2012) Hx of total knee arthroplasty (Acute) S/P surgical manipulation of ankle joint (Acute) Medical History (Last Reviewed 06/15/18 @ 16:37 by Lisa Epps MD) [place] disease (Acute) Allergic rhinitis (Acute) Altered mental status (Acute) Anemia in other chronic diseases classified elsewhere (Acute) Anxiety (Acute) Aphasia (Acute) Arthritis (Acute) Asthma (Acute) Bowel obstruction (Acute ~2016) CAD (coronary artery disease) (Acute) CVA (cerebral vascular accident) (Acute) Cellulitis (Acute) Chronic chest pain (Acute) Chronic constipation (Acute) Chronic pain (Acute) Colonic disease (Acute) Contusion of right hand including fingers (Acute) 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) Depression (Acute) Diarrhea (Acute) Diverticulosis (Acute) Dyspnea on exertion (Acute) Fall (Acute) Femur fracture (Acute) GERD (gastroesophageal reflux disease) (Acute) GI bleed (Acute ~12/11/17) Generalized headaches (Acute) Generalized weakness (Acute) Hallux valgus (acquired), right foot (Acute) Hammer toe of right foot (Acute ~10/25/17) Head injury (Acute) Hiatal hernia (Acute) Hip fracture (Acute) History of UTI (Acute) History of colitis (Acute) History of confusion (Acute) History of headache (Acute) History of hysterectomy (Acute) History of ulcer disease (Acute) Hyperthyroidism, subclinical (Acute) Hypokalemia (Acute) Hypotension (Acute) Hypothyroidism (Acute) Impaired vision (Acute) Incontinence (Acute) Myocardial infarction (Acute) Nausea (Acute) Nausea & vomiting (Acute) Opioid dependence (Acute) Ovarian cancer (Acute) PTSD (post-traumatic stress disorder) (Acute) Pneumonia (Acute) Right foot pain (Acute) Sepsis (Acute) Septic joint of left knee joint (Acute) Sialadenitis (Acute) Sleep apnea (Acute) Urinary incontinence (Acute) Physical Therapy Inpatient Evaluation/Re-Eval M1 PT/OT-IP Prior Functional Status Start: 06/16/18 12:10 Freq: NEEDED Status: Active Protocol: Document 06/16/18 10:30 HH (Rec: 06/16/18 12:42 HH [id number]) Medical Review Prior Functional Status Medical History Reviewed Yes Diet/Fluid Consistency Regular Communication Pt has dementia per RN and son 's reports. She tends to have delay noted to speech, with some word finding difficulty. She is to makes needs known with staff. Mobility and Gait Pt is a poor historian possibly due to dementia. Unable to obtain PLOF info. expect to discuss with son when he is here. Activities of Daily Living and IADL's Pt is a poor historian possibly due to dementia. Unable to obtain PLOF info. expect to discuss with son when he is here. Social History Household Members children Living Arrangements Apartment/Condo Number of Stairs To Enter/Railing? see sx hx Employment Status Retired Additional Social History Comment Per H&P report, pt lives with her son in apt/ condo at [facility]. Pt will be home alone most of the daytime since her son has to work until 7pm. Report shows pt has hx of multiple falls and pt fell this time while trying to go to bathroom at night. Upon assessment, Pt is disoriented from time to time and cannot recall date and time but she does remember she lives with her son. However, Unable to obtain accurate PLOF info. expect to discuss with son when he is here. M2 PT-IP Current Condition Start: 06/16/18 12:10 Freq: NEEDED Status: Active Protocol: Document 06/16/18 10:30 HH (Rec: 06/16/18 12:42 [email or web address]) Physical Therapy Current Condition Current Condition Evaluation Date 06/16/18 Treatment Diagnosis acute renal failure, chest pain, difficulty in walking, generalized weaknes Onset Date 06/15/18 Precautions Other Precautions NWB for 3 weeks, then will be casted @ wk 3 and then may WB through heel only if healing well. Weight Bearing Status Weight Bearing Status Weight Bear as Tolerated M3 PT-IP Subjective Start: 06/16/18 12:10 Freq: NEEDED Status: Active Protocol: Document 06/16/18 10:30 HH (Rec: 06/16/18 12:42 [email or web address]) Subjective Physical Therapy Visit Type Type Initial Evaluation Visit Start Time 10:30 Visit Stop Time 11:00 Total Visit Minutes 30 Notes Patient is awake and alert today. She is more responsive compared to MD and nurse notes but at times appears to have continued to be confused. She is slow to respond. Number of PROJECT CONTROLS SPECIALIST Visits 0 Physical Therapy Visit Comments Patient Comments She has no specific complaints . Therapy Pain Assessment Pain Present Pain Present Denied Pain M4 PT-IP Mobility and Gait Start: 06/16/18 12:10 Freq: NEEDED Status: Active Protocol: Document 06/16/18 10:30 HH (Rec: 06/16/18 12:42 [email or web address]) PT-Bed Mobility Assessment Rolling Level of Assist Standby Assistance Supine to Sit Supine to Sit Standby Assistance Bedrails Sit to Supine Sit to Supine Standby Assistance Bedrails Scooting Scooting to Edge of Bed Standby Assistance Scooting Up and Down in Bed Standby Assistance PT-Transfer Assessment Sit to and From Stand Sit to and from Stand Standby Assistance Use of Upper Extremities Equipment Transfer Assistive Device Bed Rail Gait Belt Front Wheeled Walker Transfers Transfer Destination Bed Chair Transfer Technique Stand Step Pivot Transfer Ability Level of Assist Standby Assistance Comments Mobility Comments Pt was able to follow simple commands. She performed overall bed mobility and transfer with SBA 1pa. However , pt presents occasional signs of LOB with excessive lateral shift while standing/ amb who caught herself to regain balance. Gait Assessment Gait Gait Assistance Required: Contact Guard Assist Distance (Feet) 200 Assistive Devices Assistive Device Gait Belt Front Wheeled Walker Gait Deviations General Gait Pattern Decreased Stride Length Decreased Feet Clearance Factors Limiting Gait Function Factors Limiting Gait Function Decreased Activity Tolerance Decreased Strength Poor Balance Poor Safety Awareness Comments Gait Comments Pt was able to follow simple commands. She amb 200 feet with CGA and FWW 1pa. She does not c/o fatigue and present signs of acute distress. Pt presents decreased stride length and feet clearance and she seems to have reduce awareness of obstacles from surroundings. Pt requires cues from time to time to be aware of obstacles such as corner of the bed, table etc. Also, pt presents occasional signs of LOB with excessive lateral shift while standing/ amb who caught herself to regain balance. PT-Balance Assessment Sitting Balance and Reactions Static Sitting Balance Ability Good Dynamic Sitting Balance Ability Good Standing Balance and Reactions Static Standing Balance Ability Good Dynamic Standing Balance Ability Fair M5 PT-IP Objective Assessments Start: 06/16/18 12:10 Freq: NEEDED Status: Active Protocol: Document 06/16/18 10:30 HH (Rec: 06/16/18 12:42 [email or web address]) Orientation Orientation/Cognition Level of Alertness Alert Orientation Name Place Situation Language Function Ability Word Finding Difficulties Safety Awareness Decreased Safety Awareness Memory Description Short Term Impaired Nursing Home Impaired Comments A/O to self and situation, delay noted to speech, with some word finding difficulty. Able to makes needs known with PT Gross Range of Motion Upper Extremity ROM Assessment Within Functional Limits Lower Extremity ROM Assessment Within Functional Limits Strength Upper Extremity Strength Assessment Within Functional Limits Lower Extremity Strength Assessment Within Functional Limits Coordination Assessment Gross Coordination Gross Coordination WNL Sensation Assessment Sensation Gross Sensation WNL M6 PT-IP Treatment Start: 06/16/18 12:10 Freq: NEEDED Status: Active Protocol: Document 06/16/18 10:30 HH (Rec: 06/16/18 12:42 [email or web address]) Physical Therapy Treatment Exercises Exercises Ankle Pumps Gluteal Sets Quad Sets Heel Slides Education Education Provided Safety M7 PT-IP Assessment and Plan Start: 06/16/18 12:10 Freq: NEEDED Status: Active Protocol: Document 06/16/18 10:30 HH (Rec: 06/16/18 12:42 [email or web address]) PT Summary Assessment and Plan Potential Rehabilitation Potential Good Status of Condition at Evaluation Evolving Summary Impairments Strength Balance Bed Mobility Transfers Gait Activity Tolerance Assessment Summary Pt is 73 yo female admitted to for chest pain and acute renal failure. Pt appeared to be disoriented and confused per H&P note. However, pt A/O to self and situation , delay noted to speech, with some word finding difficulty upon assessment. She is also able to makes needs known with PT and recall some social history . Expect to discuss with her son regarding her PLOF. Pt presents increased overall mobility and strength since admission. Pt is able to amb 200 feet without signs of distress with 1pa CGA and SBA for bed and transfer mobility. Per H&P report, Pt is alone at home most of the time since pt's has to work until 7pm, along with hx of multiple falls and dementia, in my professional opinion, recommend d/c to home 24/ assist / SNF to address her ADLs/ IADLs for her progressive dementia and fall prevention. Goals Bed Mobility Goal Standby Assistance Transfer Goal Standby Assistance Front Wheeled Walker Gait Goal Standby Assistance Front Wheel Walker Gait Distance 500 Days to Meet Goals 2 Frequency of Treatment Frequency Of Treatment Once a Day Treatment Plan Physical Therapy Treatment Plan Transfer Training Gait Training Therapeutic Exercise Balance Retraining Discharge Planning Recommendations To Nursing Amount of Assist Needed Standby Assistance 1 Person Assist Discharge Recommendations PT Discharge Recommendations Home with 24/7 Assist SNF Rehab
--- NOTE | 2018-06-16 13:21 | PT.IIE ---
Current Diagnoses Primary adrenocortical insufficiency (06/15/18) Unspecified dementia without behavioral disturbance (06/15/18) Metabolic encephalopathy (06/15/18) Disorder of kidney and ureter, unspecified (06/15/18) Abnormal levels of other serum enzymes (06/15/18) Unspecified fall, initial encounter (06/15/18) Surgical History (Last Reviewed 06/15/18 @ 16:37 by Lisa Epps MD) History of Radhika fundoplication (Acute) History of arthroplasty of both knees (Acute) History of bilateral oophorectomies (Acute) History of bladder surgery (Acute) History of colonoscopy with polypectomy (Acute) History of coronary artery stent placement (Acute) History of esophagogastroduodenoscopy (EGD) (Acute) History of tonsillectomy (Acute) History of total right hip arthroplasty (Acute) Hx of appendectomy (Acute) Hx of cardiac cath (Acute ~2012) Hx of total knee arthroplasty (Acute) S/P surgical manipulation of ankle joint (Acute) Medical History (Last Reviewed 06/15/18 @ 16:37 by Lisa Epps MD) [place] disease (Acute) Allergic rhinitis (Acute) Altered mental status (Acute) Anemia in other chronic diseases classified elsewhere (Acute) Anxiety (Acute) Aphasia (Acute) Arthritis (Acute) Asthma (Acute) Bowel obstruction (Acute ~2016) CAD (coronary artery disease) (Acute) CVA (cerebral vascular accident) (Acute) Cellulitis (Acute) Chronic chest pain (Acute) Chronic constipation (Acute) Chronic pain (Acute) Colonic disease (Acute) Contusion of right hand including fingers (Acute) 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) Depression (Acute) Diarrhea (Acute) Diverticulosis (Acute) Dyspnea on exertion (Acute) Fall (Acute) Femur fracture (Acute) GERD (gastroesophageal reflux disease) (Acute) GI bleed (Acute ~12/11/17) Generalized headaches (Acute) Generalized weakness (Acute) Hallux valgus (acquired), right foot (Acute) Hammer toe of right foot (Acute ~10/25/17) Head injury (Acute) Hiatal hernia (Acute) Hip fracture (Acute) History of UTI (Acute) History of colitis (Acute) History of confusion (Acute) History of headache (Acute) History of hysterectomy (Acute) History of ulcer disease (Acute) Hyperthyroidism, subclinical (Acute) Hypokalemia (Acute) Hypotension (Acute) Hypothyroidism (Acute) Impaired vision (Acute) Incontinence (Acute) Myocardial infarction (Acute) Nausea (Acute) Nausea & vomiting (Acute) Opioid dependence (Acute) Ovarian cancer (Acute) PTSD (post-traumatic stress disorder) (Acute) Pneumonia (Acute) Right foot pain (Acute) Sepsis (Acute) Septic joint of left knee joint (Acute) Sialadenitis (Acute) Sleep apnea (Acute) Urinary incontinence (Acute) Physical Therapy Inpatient Evaluation/Re-Eval M1 PT/OT-IP Prior Functional Status Start: 06/16/18 12:10 Freq: NEEDED Status: Active Protocol: Document 06/16/18 10:30 HH (Rec: 06/16/18 12:42 [id number]) Medical Review Prior Functional Status Medical History Reviewed Yes Diet/Fluid Consistency Regular Communication Pt has dementia per RN and son 's reports. She tends to have delay noted to speech, with some word finding difficulty. She is to makes needs known with staff. Mobility and Gait Pt is a poor historian possibly due to dementia. Unable to obtain PLOF info. expect to discuss with son when he is here. Activities of Daily Living and IADL's Pt is a poor historian possibly due to dementia. Unable to obtain PLOF info. expect to discuss with son when he is here. Social History Household Members children Living Arrangements Apartment/Condo Number of Stairs To Enter/Railing? see sx hx Employment Status Retired Additional Social History Comment Per H&P report, pt lives with her son in apt/ condo at [facility]. Pt will be home alone most of the daytime since her son has to work until 7pm. Report shows pt has hx of multiple falls and pt fell this time while trying to go to bathroom at night. Upon assessment, Pt is disoriented from time to time and cannot recall date and time but she does remember she lives with her son. However, Unable to obtain accurate PLOF info. expect to discuss with son when he is here. M2 PT-IP Current Condition Start: 06/16/18 12:10 Freq: NEEDED Status: Active Protocol: Document 06/16/18 10:30 HH (Rec: 06/16/18 12:42 [email or web address]) Physical Therapy Current Condition Current Condition Evaluation Date 06/16/18 Treatment Diagnosis acute renal failure, chest pain, difficulty in walking, generalized weaknes Onset Date 06/15/18 Precautions Other Precautions no precautions noted Weight Bearing Status Weight Bearing Status Weight Bear as Tolerated M3 PT-IP Subjective Start: 06/16/18 12:10 Freq: NEEDED Status: Active Protocol: Document 06/16/18 10:30 HH (Rec: 06/16/18 12:42 [email or web address]) Subjective Physical Therapy Visit Type Type Initial Evaluation Visit Start Time 10:30 Visit Stop Time 11:00 Total Visit Minutes 30 Notes Patient is awake and alert today. She is more responsive compared to MD and nurse notes but at times appears to have continued to be confused. She is slow to respond. Number of PHYSICIST ACOUSTICS Visits 0 Physical Therapy Visit Comments Patient Comments She has no specific complaints . Therapy Pain Assessment Pain Present Pain Present Denied Pain M4 PT-IP Mobility and Gait Start: 06/16/18 12:10 Freq: NEEDED Status: Active Protocol: Document 06/16/18 10:30 HH (Rec: 06/16/18 12:42 [email or web address]) PT-Bed Mobility Assessment Rolling Level of Assist Standby Assistance Supine to Sit Supine to Sit Standby Assistance Bedrails Sit to Supine Sit to Supine Standby Assistance Bedrails Scooting Scooting to Edge of Bed Standby Assistance Scooting Up and Down in Bed Standby Assistance PT-Transfer Assessment Sit to and From Stand Sit to and from Stand Standby Assistance Use of Upper Extremities Equipment Transfer Assistive Device Bed Rail Gait Belt Front Wheeled Walker Transfers Transfer Destination Bed Chair Transfer Technique Stand Step Pivot Transfer Ability Level of Assist Standby Assistance Comments Mobility Comments Pt was able to follow simple commands. She performed overall bed mobility and transfer with SBA 1pa. However , pt presents occasional signs of LOB with excessive lateral shift while standing/ amb who caught herself to regain balance. Gait Assessment Gait Gait Assistance Required: Contact Guard Assist Distance (Feet) 200 Assistive Devices Assistive Device Gait Belt Front Wheeled Walker Gait Deviations General Gait Pattern Decreased Stride Length Decreased Feet Clearance Factors Limiting Gait Function Factors Limiting Gait Function Decreased Activity Tolerance Decreased Strength Poor Balance Poor Safety Awareness Comments Gait Comments Pt was able to follow simple commands. She amb 200 feet with CGA and FWW 1pa. She does not c/o fatigue and present signs of acute distress. Pt presents decreased stride length and feet clearance and she seems to have reduce awareness of obstacles from surroundings. Pt requires cues from time to time to be aware of obstacles such as corner of the bed, table etc. Also, pt presents occasional signs of LOB with excessive lateral shift while standing/ amb who caught herself to regain balance. PT-Balance Assessment Sitting Balance and Reactions Static Sitting Balance Ability Good Dynamic Sitting Balance Ability Good Standing Balance and Reactions Static Standing Balance Ability Good Dynamic Standing Balance Ability Fair M5 PT-IP Objective Assessments Start: 06/16/18 12:10 Freq: NEEDED Status: Active Protocol: Document 06/16/18 10:30 HH (Rec: 06/16/18 12:42 [email or web address]) Orientation Orientation/Cognition Level of Alertness Alert Orientation Name Place Situation Language Function Ability Word Finding Difficulties Safety Awareness Decreased Safety Awareness Memory Description Short Term Impaired [facility] Impaired Comments A/O to self and situation, delay noted to speech, with some word finding difficulty. Able to makes needs known with PT Gross Range of Motion Upper Extremity ROM Assessment Within Functional Limits Lower Extremity ROM Assessment Within Functional Limits Strength Upper Extremity Strength Assessment Within Functional Limits Lower Extremity Strength Assessment Within Functional Limits Coordination Assessment Gross Coordination Gross Coordination WNL Sensation Assessment Sensation Gross Sensation WNL M6 PT-IP Treatment Start: 06/16/18 12:10 Freq: NEEDED Status: Active Protocol: Document 06/16/18 10:30 HH (Rec: 06/16/18 12:42 [email or web address]) Physical Therapy Treatment Exercises Exercises Ankle Pumps Gluteal Sets Quad Sets Heel Slides Education Education Provided Safety M7 PT-IP Assessment and Plan Start: 06/16/18 12:10 Freq: NEEDED Status: Active Protocol: Document 06/16/18 10:30 HH (Rec: 06/16/18 12:42 [email or web address]) PT Summary Assessment and Plan Potential Rehabilitation Potential Good Status of Condition at Evaluation Evolving Summary Impairments Strength Balance Bed Mobility Transfers Gait Activity Tolerance Assessment Summary Pt is 73 yo female admitted to for chest pain and acute renal failure. Pt appeared to be disoriented and confused per H&P note. However, pt A/O to self and situation , delay noted to speech, with some word finding difficulty upon assessment. She is also able to makes needs known with PT and recall some social history . Expect to discuss with her son regarding her PLOF. Pt presents increased overall mobility and strength since admission. Pt is able to amb 200 feet without signs of distress with 1pa CGA and SBA for bed and transfer mobility. Per H&P report, Pt is alone at home most of the time since pt's has to work until 7pm, along with hx of multiple falls and dementia, in my professional opinion, recommend d/c to home 24/ assist / SNF to address her ADLs/ IADLs for her progressive dementia and fall prevention. Goals Bed Mobility Goal Standby Assistance Transfer Goal Standby Assistance Front Wheeled Walker Gait Goal Standby Assistance Front Wheel Walker Gait Distance 500 Days to Meet Goals 2 Frequency of Treatment Frequency Of Treatment Once a Day Treatment Plan Physical Therapy Treatment Plan Transfer Training Gait Training Therapeutic Exercise Balance Retraining Discharge Planning Recommendations To Nursing Amount of Assist Needed Standby Assistance 1 Person Assist Discharge Recommendations PT Discharge Recommendations Home with /7 Assist SNF Rehab
--- NOTE | 2018-06-16 14:20 | CM.DPC ---
Referral faxed to Jossie Dempsey
[2018-06-16] MEDS: LOSARTAN 25 MG TABLET PO (14:30)
--- NOTE | 2018-06-16 14:55 | CM.DPC ---
Discharge Planning/Care Management DCP: assessment: case received, EMR reviewed and discussed case with OT Darlin. Met then with pt and introduced self and role. Pt is a 73 year old female who admitted yesterday to care of the hospitalist team. Payer: Medicare and [facility]. PCP: Dr. Beavers Admission status: OBS: confirmed by UR LESLIE Raymond. Discussed case in Team Rounds. Per Dr. Epps, pt did have a fall with leg pain and she noted acute renal failure. It is a bit unclear what her baseline mental status is but she does seem to be having trouble today expressing her thoughts. E[employer]GL[employer] FRAME TRUER also reports pt has been incontinent today. PT and OT were ordered. At time of this DCPlanner's discussion with pt she was in process of working with DONNY Saeed. Pt said she wanted help at home. Said she did not wish to go anywhere else but home. Added my family does not want anyone else in the house when they are not there. Pt confirms her daughter Arleen is her POA but also says, after struggling for the words, I speak for myself. She takes over when I'm . Called Arleen and spoke with her re above. She says it has been frustrating trying to help her mother. She says the family are very aware that she needs assist in the day, mostly to provide some companionship and to structure the day for her. She is currently in process of working with [facility] to get info on caregivers in the home. She confirms the only one living with pt is her son Pavan. Arleen lives in [place] but works in [place]. Discussed home health options as way to help bridge gap until caregivers are in place and to also assist in that process. Arleen agreed this would be very helpful. At this time it would appear that Dr. Epps will d/c pt tomorrow unless more is found medically that would indicate need for continued treatment at an inpt level. Arleen says she would plan to coordinate a tile picker of pt at hospital about 1630 to that she could be at the home when her mother returned and someone would then be with her all night. If pt were to d/c in the morning she would be alone until 1900. P: discuss in Team Rounds with Dr. Epps...[facility] is available to open pt to services either on weekend or Wednesday if ordered. CM Discharge Assessment Start: 06/16/18 14:50 Freq: Status: Active Protocol: Document 06/16/18 14:50 ITV (Rec: 06/16/18 14:55 ITV [id number]) Discharge Planning Assessment Advance Directives? Yes: Living will/POLST Advance Directives on File Yes History Provided By Patient Family Member Medical Record Prior Living Arrangements Apartment/Condo Household Members children Comment lives with adult son Pavan who works from 1200 to 7PM. Pt is alone in the home the rest of the time. Type of transporation used prior to Relies on Others admit Is patient alert and oriented? seems to be struggling to put her sentences and thought together If patient plan is home with home health discussing same. Will talk : Has signed face to face form been with Dr. Epps in AM rounds completed? Medicare Choice List Provided Yes SNF/HH Preference [facility] choice: [facility] Referral is given to Leydi hidalgo [place] Updated in Patient Room with Yes name and ext. # of Administrator Of Home Health Review Status In Process Next Review Type Continued Stay Review
--- NOTE | 2018-06-16 15:19 | OT.IP.EVAL ---
Current Diagnoses Primary adrenocortical insufficiency (06/15/18) Unspecified dementia without behavioral disturbance (06/15/18) Metabolic encephalopathy (06/15/18) Disorder of kidney and ureter, unspecified (06/15/18) Abnormal levels of other serum enzymes (06/15/18) Unspecified fall, initial encounter (06/15/18) Past Medical History (Last Reviewed 06/15/18 @ 16:37 by Lisa Epps MD) [place]ond[place] disease (Acute) Allergic rhinitis (Acute) Altered mental status (Acute) Anemia in other chronic diseases classified elsewhere (Acute) Anxiety (Acute) Aphasia (Acute) Arthritis (Acute) Asthma (Acute) Bowel obstruction (Acute ~2016) CAD (coronary artery disease) (Acute) CVA (cerebral vascular accident) (Acute) Cellulitis (Acute) Chronic chest pain (Acute) Chronic constipation (Acute) Chronic pain (Acute) Colonic disease (Acute) Contusion of right hand including fingers (Acute) 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) Depression (Acute) Diarrhea (Acute) Diverticulosis (Acute) Dyspnea on exertion (Acute) Fall (Acute) Femur fracture (Acute) GERD (gastroesophageal reflux disease) (Acute) GI bleed (Acute ~12/11/17) Generalized headaches (Acute) Generalized weakness (Acute) Hallux valgus (acquired), right foot (Acute) Hammer toe of right foot (Acute ~10/25/17) Head injury (Acute) Hiatal hernia (Acute) Hip fracture (Acute) History of UTI (Acute) History of colitis (Acute) History of confusion (Acute) History of headache (Acute) History of hysterectomy (Acute) History of ulcer disease (Acute) Hyperthyroidism, subclinical (Acute) Hypokalemia (Acute) Hypotension (Acute) Hypothyroidism (Acute) Impaired vision (Acute) Incontinence (Acute) Myocardial infarction (Acute) Nausea (Acute) Nausea & vomiting (Acute) Opioid dependence (Acute) Ovarian cancer (Acute) PTSD (post-traumatic stress disorder) (Acute) Pneumonia (Acute) Right foot pain (Acute) Sepsis (Acute) Septic joint of left knee joint (Acute) Sialadenitis (Acute) Sleep apnea (Acute) Urinary incontinence (Acute) Surgical History (Last Reviewed 06/15/18 @ 16:37 by Lisa Epps MD) History of Radhika fundoplication (Acute) History of arthroplasty of both knees (Acute) History of bilateral oophorectomies (Acute) History of bladder surgery (Acute) History of colonoscopy with polypectomy (Acute) History of coronary artery stent placement (Acute) History of esophagogastroduodenoscopy (EGD) (Acute) History of tonsillectomy (Acute) History of total right hip arthroplasty (Acute) Hx of appendectomy (Acute) Hx of cardiac cath (Acute ~2013) Hx of total knee arthroplasty (Acute) S/P surgical manipulation of ankle joint (Acute) Occupational Therapy Inpatient Evaluation/Re-Eval M1 PT/OT-IP Prior Functional Status Start: 06/16/18 14:53 Freq: NEEDED Status: Active Protocol: Document 06/16/18 14:53 [facility] (Rec: 06/16/18 15:19 [facility] [id number]) Medical Review Prior Functional Status Medical History Reviewed Yes Diet/Fluid Consistency Regular Communication Pt has dementia per RN and son 's reports. She tends to have delay noted to speech, with some word finding difficulty. She is to makes needs known with staff. Mobility and Gait Pt is a poor historian possibly due to dementia. Unable to obtain PLOF info. expect to discuss with son when he is here. Activities of Daily Living and IADL's Pt is a poor historian possibly due to dementia. Unable to obtain PLOF info. expect to discuss with son when he is here. Prior Functional Level (Other details) Per pt , My main job is to get to the bathroom at home. Pt feels that she would like more help at home or someone to be with her since her son works and is alone for most fo the day. Social History Household Members children Living Arrangements Apartment/Condo Number of Stairs To Enter/Railing? see sx hx Employment Status Retired Additional Social History Comment Per H&P report, pt lives with her son in apt/ condo at [facility]. Pt will be home alone most of the daytime since her son has to work until 7pm. Report shows pt has hx of multiple falls and pt fell this time while trying to go to bathroom at night. Upon assessment, Pt is disoriented from time to time and cannot recall date and time but she does remember she lives with her son. However, Unable to obtain accurate PLOF info. expect to discuss with son when he is here. M2 OT-IP Current Condition Start: 06/16/18 14:53 Freq: Status: Active Protocol: Document 06/16/18 14:53 [facility] (Rec: 06/16/18 15:19 [facility] [id number]) Occupational Therapy Current Condition Current Condition Evaluation Date 06/16/18 Treatment Diagnosis GLF, weakness Diagnosis Onset Date 06/15/18 Post Operative Precautions Other Precautions no precautions noted Weight Bearing Status Weight Bearing Status Weight Bear as Tolerated M3 OT- IP Subjective and Pain Start: 06/16/18 14:53 Freq: Status: Active Protocol: Document 06/16/18 14:53 [facility] (Rec: 06/16/18 15:19 [facility] [id number]) OT- Subjective Occupational Therapy Visit Type Type Initial Evaluation Visit Start Time 13:25 Visit Stop Time 14:25 Total Visit Minutes 60 Occupational Therapy Visit Comments Patient Comments Pt intially agreeable to take a shower and then changed her mind to just staying in bed but agreeable to do cognitive assessment. OT Pain Assessment Pain When Pain Assessed At Rest Pain Present Pain Present Denied Pain M5 OT- IP IADL's Start: 06/16/18 14:53 Freq: Status: Active Protocol: Document 06/16/18 14:53 [facility] (Rec: 06/16/18 15:19 [facility] [id number]) OT-Instrumental Activities of Daily Living Home Safety Awareness Awareness of Need for Assistance at Home Good Awareness Ability to Problem Solve Emergency Able to Problem Solve Situations Home Safety Comments Pt unable to identify to call 911 in case of emergency or to call doctor's office or pharmacist if needing more medication if she ever ran out , and also not able to identify what to do if the cat were to scratch her and arm became bloody. Medication Management Medication Management Comments Pt states she does it herself. Money Management Money Management Comments Pt states she pays her own bills. M6 OT- IP Functional Cognition Start: 06/16/18 14:53 Freq: Status: Active Protocol: Document 06/16/18 14:53 [facility] (Rec: 06/16/18 15:19 [facility] [id number]) Cognitive Factors Limiting Selfcare Function Cognitive Ability Level of Alertness Alert Confusional State Patient Orientation Name Year Place Situation Attention Span Ability Capable of Focused Attention Capable of Sustained Attention Unable to Sustain Attention Ability to Follow Commands Able to Follow One Step Commands Memory Description Immediate Impaired Short Term Impaired Working Impaired Safety Awareness Underestimates Need for Assistance Problem Solving Ability Unable to Identify Errors Needs Assist to Identify Solutions Executive Function Ability Unable to Filter Distractions Unable to Make Plans Unable to Organize Plans Unable to Remember Details Cognitive Tests SLUMS Pt scored 4/30 normal is 25. Pt's score indicates dementia. Cognitive Comments Cognitive Assessment Comments Pt having difficulty answering questions on the assessment and needing questions repeated . Pt needed 50% assist to problem solve through home safety situations. Based on pt 's decreased STM ,safety awareness, and insight to her deficits would recommend 24/7 supervision at home and physical assist as needed for all ADl and functional mobility needs. Pt needing simple concrete commands to follow. M7 OT- IP Mobility and Balance Start: 06/16/18 14:53 Freq: Status: Active Protocol: Document 06/16/18 14:53 [facility] (Rec: 06/16/18 15:19 [facility] [id number]) OT-Transfer Assessment Comments Mobility Comments Please see PT eval, per PT CGA with FWW SBA for bed mobility needs for even terrain. Pt now willing to get out of bed for OT eval. M9 OT- IP Assessment and Plan Start: 06/16/18 14:53 Freq: Status: Active Protocol: Document 06/16/18 14:53 [facility] (Rec: 06/16/18 15:19 [facility] [id number]) OT Summary Assessment and Plan Potential Rehabilitation Potential Good Analytic Complexity at Evaluation Low Summary OT Impairments Functional Cognition Dressing Toileting Bathing Progress Towards Goals Slow Progress due to Cognition Assessment Summary Pt's main barrier is decreased safety awareness, short term memory and would benefit from 24/7 supervision and assist as needed. Pt has history of multiple falls and would also benefit from home health OT/PT to best set up environment at home and make any suggestions for modifications for safety. Goals Grooming Goal Independent Dressing Goal Standby Assistance Toileting Goal Standby Assistance Bathing Goal Contact Guard Assistance Toilet Transfer Goal Standby Assistance Shower Transfer Goal Contact Guard Assistance Patient/Caregiver Education Goal Caregiver Independent Assisting Patient Days to Meet Goals 5 Frequency of Treatment Frequency Of Treatment Once a Day Treatment Plan OT Treatment Plan ADL Training Functional Cognition Training Functional Mobility Patient/Family Education Discharge Planning Other Treatment Recommendations and Next Shower. Treatment Focus Discharge Recommendations OT Discharge Recommendations Home with 24/7 Assist
[2018-06-16] MEDS: QUETIAPINE 25 MG TABLET 12.5 MG PO (20:18)
[2018-06-16] MEDS: METOPROLOL IR 25 MG TABLET 12.5 MG PO (20:18)
[2018-06-16] MEDS: ACETAMINOPHEN 325 MG TABLET 650 MG PO (20:19)
[2018-06-16] MEDS: PANTOPRAZOLE 40 MG TABLET PO (20:19)
[2018-06-16] MEDS: HYDROCORTISONE 10 MG TABLET 20 MG PO (20:19)
[2018-06-16] MEDS: SENNOSIDES 8.6 MG TABLET 17.2 MG PO (20:19)
[2018-06-16] MEDS: SODIUM CHLORIDE 0.9% FLUSH 10 ML IV (20:53)
[2018-06-16 22:09] LABS: Appearance Urine UA CLEAR; Bilirubin Urine UA NEGATIVE (NEGATIVE); Color Urine UA YELLOW; Glucose Urine UA NEGATIVE (Negative); Ketones Urine UA NEGATIVE (NEGATIVE); Leukocyte Esterase Urine UA 1+ (NEGATIVE); Nitrite Urine UA NEGATIVE (Negative); Occult Blood Urine UA TRACE-INTACT (Negative); Protein Urine UA NEGATIVE (Negative); Specific Gravity Urine UA <=1.005 (1.000-1.035); Urobilinogen Urine UA 0.2 E.U./dL (0.2)
[2018-06-16 22:39] LABS: RBC Urine 0-1/HPF (0-5/HPF); Squamous Epithelial Cell Urine 0-1 /HPF; WBC Urine 1-5/HPF (0-5/HPF)
[2018-06-16 22:40] LABS: Bacteria Urine Occasional (0-1); Culture Indicated Urine Specimen Cultured
[2018-06-17] VITALS (8 sets, daily range): BP systolic 104–150; BP diastolic 69–83; PULSE 67–86; RESP 16–20; TEMP 36.4–36.7; O2SAT 97–100
--- NOTE | 2018-06-17 | DI.ECHO.S_ITS ---
[place] [facility]---------+ [facility] +---------+ : : [address] : : : : [id number] : : : : Phone: [phone]+ Echocardiogram Report + + :Name: BETTY AMADOR Study Date: 06/17/2018 Height: 64 in : :[facility] Weight: 131 lb: : Gender: Female BSA: 1.6 m2 : :: 1945 Age: 73 yrs : :Reason For Study: SYNCOPE : : Performed By: Yolis Bearden : :Referring: UNSPECIFIED : + + Interpretation Summary The left ventricle is normal in size. The ejection fraction is estimated to be 55-60%. There has been no significant change in LVEF since the previous study. The right ventricle is normal in size and function. No significant valvular pathology seen. Procedure: A two-dimensional transthoracic echocardiogram with color flow and Doppler was performed. The study quality was technically adequate. Comparison is made with the echocardiogram of 02/13/2014. Patient was confused and had a hard time tolerating the exam. The heart rate ranged between 65-70 bpm during the study. The patient was in normal sinus rhythm during the exam. Left Ventricle: The left ventricle is normal in size. There is normal left ventricular wall thickness. The ejection fraction is estimated to be 55-60%. There has been no significant change since the previous study. There are no focal wall motion abnormalities. Diastolic parameters suggest a relaxation abnormality of the left ventricle, consistent with probable normal filling pressures. Right Ventricle: The right ventricle is normal in size and function. Atria: The left atrium is mildly dilated. The left atrium has mildly increased in size since the prior echo exam. Right atrial size is normal. There is no Doppler evidence for an interatrial shunt. Mitral Valve: There is mild mitral annular calcification. There is no mitral valve stenosis. There is trace mitral regurgitation. Aortic Valve: The aortic valve is not well visualized. There is no aortic valve stenosis. No aortic regurgitation is present. Tricuspid Valve: There is tricuspid annular calcification. There is a trace or physiologic amount of tricuspid regurgitation. Pulmonic Valve: The pulmonic valve is not well visualized. There is a trace or physiologic amount of pulmonic regurgitation. Great Vessels: The aortic root is normal size. The ascending aorta could not be visualized. The aortic arch is normal in size. The pulmonary artery is not well visualized, but is probably normal size. The IVC is of normal diameter and collapses greater than 50% with a sniff. This suggests a low right atrial pressure of 3 mm Hg. Pericardium/ Pleura There is no pericardial effusion. There is an anterior echo-free space consistent with a fat pad. There is no pleural effusion. MMode/2D Measurements & Calculations LVIDd: 4.0 cm LVOT diam: 1.9 cm LVIDs: 3.2 cm Ao root diam: 3.3 cm FS: 21.5 % Ao Arch Diam (Prox Trans): 2.8 cm IVSd: 0.96 cm LVPWd: 0.84 cm LV hawkins. diameter/BSA (cm/m^2): 2.5 LV sys. diameter/BSA (cm/m^2): 1.9 LA A2 area: 20.6 cm2 RA long axis: 4.8 cm LA A4 area: 19.8 cm2 RA area: 14.6 cm2 LA length (vol): 5.7 cm RA vol: 37.2 ml LA vol: 60.9 ml RA : 22.7 ml/m2 LA vol index: 37.2 ml/m2 RVD1 (basal): 3.5 cm Doppler Measurements & Calculations Ao V2 max: 106.4 cm/sec LVOT Max Waqas: 77.3 cm/sec Ao V2 mean: 77.0 cm/sec LV V1 max P.4 mmHg Ao max P.5 mmHg LV V1 VTI: 12.6 cm Ao mean P.7 mmHg VIPUL(I,D): 1.8 cm2 Ao V2 VTI: 20.5 cm VIPUL(V,D): 2.1 cm2 sev ratio: 0.62 VIPUL indexed to BSA (cm^2/m^2): 1.1 MV E max waqas: 44.8 cm/sec MV V2 mean: 51.5 cm/sec MV A max waqas: 70.6 cm/sec MV mean P.2 mmHg MV E/A: 0.63 MV V2 VTI: 20.0 cm Med Peak E' Waqas: 4.2 cm/sec E/E' med: 10.6 Lat Peak E' Waqas: 5.1 cm/sec E/E' lat: 8.9 E/e' average: 9.8 MV P1/2t: 78.5 msec MVA(VTI): 1.8 cm2 MV P1/2t max waqas: 44.8 cm/sec SV(LVOT): 36.4 ml MVA(P1/2t): 2.8 cm2 Reading Physician:ANETA
[2018-06-17] MEDS: OXYCODONE 5 MG/5 ML ORAL SOLUTION 10 MG PO ×4 (01:06→23:28)
--- NOTE | 2018-06-17 01:32 | PC.NURSE ---
Addendum entered by Mabel Neville R.N. 06/17/18 06:40: Up walking in ibarra again. 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 Does still have difficulty, however, with word finding. Original Note: Addendum entered by Mabel Neville R.N. 06/17/18 05:42: Slept at intervals. Was up earlier and ambulated in ibarra with walker and SBA to [facility] [place] and back. Has been both continent and incontinent of urine. Much more alert tonight. 0400 tele reading was SR. Original Note: Patient is alert but disoriented. Knows name, birthdate and day of week. Some responses are delayed and has difficulty finding the correct word and sometimes responses are word salad. Breath sounds are CTA with RA sat of 97%. HRR; last telemetry reading was SR w/1st degree AVB. Denies nausea. BT present and abdomen is soft. Complains of chest pain which is chronic and rates severity as 8/10 so medicated with Oxycodone elixer. Is able to turn self and can be impulsive and has history of falls so bed alarm is activated. Allevyn dressing to anterior left LE remains intact with no new drainage noted. Bruising to medial right thigh.
[2018-06-17] MEDS: PANTOPRAZOLE 40 MG TABLET PO ×2 (06:32→20:34)
[2018-06-17] MEDS: LEVOTHYROXINE 100 MCG TABLET PO (06:32)
[2018-06-17 06:46] LABS: Add Manual Diff / Slide Review NO; Basophils Percent Auto 0.7 % (0-2); Eosinophils Percent Auto 0.4 % (2-4); Hematocrit 32.7 % (36-46); Hemoglobin 10.3 g/dL (12.0-16.0); Lymphocytes Percent Auto 24.3 % (25-40); Mean Corpuscular HGB Conc 31.5 % (30-36); Mean Corpuscular Hemoglobin 21.1 PG (26-34); Mean Corpuscular Volume 66.9 fL (80-100); Monocytes Percent Auto 8.6 % (3-14); Neutrophils Absolute Auto 5300 /uL (1500-7000); Platelet Count 260 X10^3/uL (150-400); Red Blood Cell Count 4.89 X10^6/uL (4.0-5.2); Red Cell Distribution Width 21.2 % (11.6-14.8)
[2018-06-17 06:48] LABS: BUN Creatinine Ratio 17.5 (6-22); Blood Urea Nitrogen 14 mg/dL (7-17); Calcium 9.3 mg/dL (8.4-10.2); Carbon Dioxide 32 mmol/L (22-32); Chloride 100 mmol/L (98-107); Estimated Glomerular Filt Rate > 60.0 mL/min (>60); Glucose 103 mg/dL (80-110); HEMOLYSIS < 15 (0-50); Potassium 3.6 mmol/L (3.4-5.1); Sodium 139 mmol/L (137-145)
[2018-06-17 07:24] LABS: Anisocytosis 2+; Helmet Cells 1; Hypochromasia 2+; Microcytosis 3+; Poikilocytosis 3+
[2018-06-17 07:25] LABS: Acanthocytes 1+; Tear Drop Cells 1+
--- NOTE | 2018-06-17 07:32 | PC.NURSE ---
Addendum entered by Eula Wray R.N. 06/17/18 11:19: CARDIAC - echo in progress. Original Note: Addendum entered by Elua Wray R.N. 06/17/18 10:41: PAIN/NEURO/MS - pt continues to require freq attention, restless at times, back discomfort increased, tylenol earlier not providing adequate relief, tried ice pack and warm blanket, furniture refinisher assisted oob w/fww, ambul x1 in hallway, ret to bed, given 10mg oxycodone elixir. Original Note: AM NOTE - EXECUTIVE SALES MANAGER in and assisted w/fww x1 br w/void, ret to bed w/alarm on, pt oriented self, could not name hospital this am, speech is clear, pattern is hesitant, at times rambling,does describe ambul hallway during night, some hip discomfort, ra 97%, hr reg 72.
[2018-06-17] MEDS: APIXABAN 5 MG TABLET PO ×2 (08:36→20:34)
[2018-06-17] MEDS: DOCUSATE 100 MG CAPSULE PO ×2 (08:36→20:33)
[2018-06-17] MEDS: ACETAMINOPHEN 325 MG TABLET 650 MG PO (08:36)
[2018-06-17] MEDS: ASPIRIN EC 81 MG TABLET PO (08:37)
[2018-06-17] MEDS: METOPROLOL IR 25 MG TABLET 12.5 MG PO ×2 (08:37→20:33)
[2018-06-17] MEDS: LOSARTAN 25 MG TABLET PO (08:38)
[2018-06-17] MEDS: HYDROCORTISONE 10 MG TABLET 20 MG PO ×2 (08:38→20:33)
[2018-06-17] MEDS: SODIUM CHLORIDE 0.9% FLUSH 10 ML IV ×2 (08:56→20:33)
--- NOTE | 2018-06-17 09:32 | PT.IPTN ---
Current Diagnoses Primary adrenocortical insufficiency (06/15/18) Unspecified dementia without behavioral disturbance (06/15/18) Metabolic encephalopathy (06/15/18) Disorder of kidney and ureter, unspecified (06/15/18) Abnormal levels of other serum enzymes (06/15/18) Unspecified fall, initial encounter (06/15/18) Physical Therapy Treatment Note M2 PT-IP Current Condition Start: 06/16/18 12:10 Freq: NEEDED Status: Active Protocol: Document 06/16/18 10:30 HH (Rec: 06/16/18 12:42 [id number]) Physical Therapy Current Condition Current Condition Evaluation Date 06/16/18 Treatment Diagnosis acute renal failure, chest pain, difficulty in walking, generalized weaknes Onset Date 06/15/18 Precautions Other Precautions no precautions noted Weight Bearing Status Weight Bearing Status Weight Bear as Tolerated M3 PT-IP Subjective Start: 06/16/18 12:10 Freq: NEEDED Status: Active Protocol: Document 06/17/18 09:02 LJ (Rec: 06/17/18 09:32 LJ [id number]) Subjective Physical Therapy Visit Type Type Treatment Note Visit Start Time 09:02 Visit Stop Time 09:15 Total Visit Minutes 13 Notes Pt in bed needing to go to bathroom. As per nursing, pt is having a proceedurre this am and needs to return to bed after toileting. PARTS SALESPERSON in with pt also. M4 PT-IP Mobility and Gait Start: 06/16/18 12:10 Freq: NEEDED Status: Active Protocol: Document 06/17/18 09:02 LJ (Rec: 06/17/18 09:32 LJ [id number]) PT-Bed Mobility Assessment Rolling Level of Assist Standby Assistance Supine to Sit Supine to Sit Standby Assistance Scooting Scooting to Edge of Bed Standby Assistance PT-Transfer Assessment Sit to and From Stand Sit to and from Stand Standby Assistance Use of Upper Extremities Equipment Transfer Assistive Device Gait Belt Front Wheeled Walker Transfers Transfer Destination Bed Toilet Transfer Technique Stand Step Pivot Transfer Ability Level of Assist Standby Assistance Comments Mobility Comments Pt able to perform SBA ambulation to/from toilet and bed using FWW. Requires cueing for positioning in front of toilet. Ue of handrails for sit<>stand at toilet. Pt with confusion in speech and sequencing of events. Did not experience any LOB during ambulation or hand washing at sink. Gait Assessment Gait Gait Assistance Required: Contact Guard Assist Distance (Feet) 200 Able to Maintain Weight Bearing Status Yes During Gait Assistive Devices Assistive Device Gait Belt Front Wheeled Walker Gait Deviations General Gait Pattern Decreased Stride Length Decreased Feet Clearance Factors Limiting Gait Function Factors Limiting Gait Function Decreased Activity Tolerance Decreased Strength Poor Balance Poor Safety Awareness Comments Gait Comments Pt SBA for ambulation x 25' then 2 min at sink w/o hand hold then 9' back to bed. Did not experience any LOB however required mod cueing for FWW and sequencing events. Pt in confusional state. Left with nursing. M5 PT-IP Objective Assessments Start: 06/16/18 12:10 Freq: NEEDED Status: Active Protocol: Document 06/16/18 10:30 HH (Rec: 06/16/18 12:42 HH [id number]) Orientation Orientation/Cognition Level of Alertness Alert Orientation Name Place Situation Language Function Ability Word Finding Difficulties Safety Awareness Decreased Safety Awareness Memory Description Short Term Impaired Credit Interviewer Impaired Comments A/O to self and situation, delay noted to speech, with some word finding difficulty. Able to makes needs known with PT Gross Range of Motion Upper Extremity ROM Assessment Within Functional Limits Lower Extremity ROM Assessment Within Functional Limits Strength Upper Extremity Strength Assessment Within Functional Limits Lower Extremity Strength Assessment Within Functional Limits Coordination Assessment Gross Coordination Gross Coordination WNL Sensation Assessment Sensation Gross Sensation WNL M6 PT-IP Treatment Start: 06/16/18 12:10 Freq: NEEDED Status: Active Protocol: Document 06/17/18 09:02 LJ (Rec: 06/17/18 09:32 LJ [id number]) Physical Therapy Treatment Education Education Provided Safety M7 PT-IP Assessment and Plan Start: 06/16/18 12:10 Freq: NEEDED Status: Active Protocol: Document 06/17/18 09:02 LJ (Rec: 06/17/18 09:32 LJ [id number]) PT Summary Assessment and Plan Potential Rehabilitation Potential Good Status of Condition at Evaluation Evolving Summary Impairments Strength Balance Bed Mobility Transfers Gait Activity Tolerance Assessment Summary Pt is 73 yo female admitted to for chest pain and acute renal failure. Pt appeared to be disoriented and confused per H&P note. However, pt A/O to self and situation , delay noted to speech, with some word finding difficulty upon assessment. She is also able to makes needs known with PT and recall some social history . Expect to discuss with her son regarding her PLOF. Pt presents increased overall mobility and strength since admission. Pt is able to amb 200 feet without signs of distress with 1pa CGA and SBA for bed and transfer mobility. Per H&P report, Pt is alone at home most of the time since pt's has to work until 7pm, along with hx of multiple falls and dementia, in my professional opinion, recommend d/c to home 24/7 assist / SNF to address her ADLs/ IADLs for her progressive dementia and fall prevention. Goals Bed Mobility Goal Standby Assistance Transfer Goal Standby Assistance Front Wheeled Walker Gait Goal Standby Assistance Front Wheel Walker Gait Distance 500 Days to Meet Goals 2 Frequency of Treatment Frequency Of Treatment Once a Day Treatment Plan Physical Therapy Treatment Plan Transfer Training Gait Training Therapeutic Exercise Balance Retraining Discharge Planning Recommendations To Nursing Amount of Assist Needed 1 Person Assist Discharge Recommendations PT Discharge Recommendations Home with 24/7 Assist SNF Rehab
[2018-06-17] MEDS: CIPROFLOXACIN 500 MG TABLET PO (13:11)
--- NOTE | 2018-06-17 14:28 | P.PN_ITS ---
Subjective Date Patient Seen: 06/17/18 Interval history: Javier Steen is a 73-year-old female with a past medical history significant for CAD, previous CVA with baseline dementia, [place]'s disease, and recurrent ground level falls who was admitted for ground level fall, acute kidney injury and metabolic encephalopathy. The patient is resting in bed comfortably and in no acute distress. She endorses chronic chest pain and new dysuria for several days. She denies headache, cough, shortness of breath, abdominal pain, nausea, vomiting, fever, chills, diarrhea or constipation. She is voiding without difficulty. She is up ambulating with assistance. Exam Vital Signs (past 8 hours): - 06/17/18 07:37 06/17/18 08:00 06/17/18 12:31 Temperature 98.1 F 98.1 F Pulse Rate 76 67 Respiratory Rate 16 18 Blood Pressure 107/74 136/77 Pulse Oximetry 97 99 97 Oxygen Delivery Method Room Air Oxygen Flow Rate 0 Narrative Exam Narrative: General: Elderly female lying in bed and in no acute distress, well-developed, well-nourished, appropriately interactive HEENT: Normocephalic, atraumatic. External ears without defect. Pupils equal, round, and reactive to light and accommodation. Anicteric sclerae, moist conjunctivae, and no lid lag. Neck: Supple with full range of motion. No lymphadenopathy or thyromegaly. Cardiovascular: Regular rate and rhythm without murmurs, rubs, or gallops appreciated. Reproducible chest pain with palpation. Pulmonary: Clear to auscultation bilaterally without crackles, wheezes, or rhonchi. Normal respiratory effort with no use of accessory muscles. Abdomen: Soft, bowel sounds present, nontender, nondistended. Mild suprapubic tenderness. No hepatosplenomegaly or masses appreciated. Extremities: No clubbing, cyanosis, or edema. Skin: Normal temperature, turgor, and texture; no rash, ulcers, or subcutaneous nodules appreciated. Neurological: Cranial nerves grossly intact. Psychiatric: Normal mood and affect. Alert and oriented to person only. Mild confusion. Delayed response and short-term memory recall deficit. Objective Labs Result Diagrams: 06/17/18 05:55 06/17/18 05:55 Labs: Laboratory Results - last 24 hr 06/16/18 06/17/18 06/17/18 22:00 05:55 05:55 WBC 8.0 RBC 4.89 Hgb 10.3 L Hct 32.7 L MCV 66.9 L MCH 21.1 L MCHC 31.5 RDW 21.2 H Plt Count 260 Neut % (Auto) 66.0 Lymph % (Auto) 24.3 L [place] % (Auto) 8.6 Eos % (Auto) 0.4 L Baso % (Auto) 0.7 Neut # (Auto) 5300 RBC Morphology Not Reportable Hypochromasia 2+ H Poikilocytosis 3+ H Anisocytosis 2+ H Microcytosis 3+ H Tear Drop Cells 1+ H Helmet Cells 1 Acanthocytes (Spur) 1+ H Sodium 139 Potassium 3.6 Chloride 100 Carbon Dioxide 32 BUN 14 Creatinine 0.80 Estimated GFR > 60.0 BUN/Creatinine Ratio 17.5 Glucose 103 Calcium 9.3 Urine Color Yellow Urine Appearance Clear Urine pH 7.0 Ur Specific [place] <=1.005 Urine Protein Negative Urine Glucose (UA) Negative Urine Ketones Negative Urine Occult Blood Trace-intact Urine Nitrate Negative Urine Bilirubin Negative Urine Urobilinogen 0.2 Ur Leukocyte Esterase 1+ H Urine RBC 0-1/hpf Urine WBC 1-5/hpf Ur Squamous Epith Cells 0-1 /hpf Urine Bacteria Occasional (0-1) Ur Culture Indicated? Specimen cultured Micro UA Comment Not Reportable Assessment & Plan Plan: Assessment/Plan Narrative: Javier Steen is a 73-year-old female with a past medical history significant for CAD, previous CVA with baseline dementia, [place]'s disease, and recurrent ground level falls who was admitted for ground level fall, acute kidney injury and metabolic encephalopathy. 1. Acute ground level fall, present on admission. Active. -Possibly due to metabolic encephalopathy and UTI vs. physical deconditioning vs. mechanical. -Continue PT and OT. Physical therapy recommending 24 hr home care or care home facility for rehabilitation. 2. Acute metabolic encephalopathy, present on admission. Active. -Likely secondary to probable UTI and dehydration. -Patient has dementia but per family patient is not at baseline mental cognition. -Continue to treat underlying cause. -Continue quetiapine 12.5 mg at bedtime. 3. Probable gram-negative UTI, present on admission. Active. -Patient complains of dysuria. -Urinalysis with culture preliminarily growing gram-negative rods 50,000-100, 000 CFU with identification and sensitivities pending. -Due to multiple antibiotic allergies started patient on ciprofloxacin 500 mg twice daily. 4. Acute kidney injury, present on admission. Resolved. -Likely secondary to prerenal azotemia and probable UTI. -Baseline creatinine 0.80-1.0. Initial creatinine on admission 2.10. Has returned to baseline. -Continue to monitor renal function daily. -Avoid nephrotoxic agents. 5. Chronic chest pain with elevated troponin, present on admission. Resolved. -Patient has history of chronic chest pain with negative workup to date. -Patient had slightly elevated troponin on admission at 0.041. Repeat negative. -Continue oxycodone 10 mg 4 times daily as needed for severe pain. -Ordered echocardiogram which demonstrated normal EF 55-60% without focal wall motion abnormalities or significant valvular heart disease. 6. [place]'s disease, chronic, present on admission. Stable. -Continue home hydrocortisone 20 mg twice daily. 7. Hypothyroidism, chronic, present on admission. Active. -Patient is on levothyroxine 100 mcg daily. -TSH was high at 6.86. Ordered free T4, pending. Will adjust dose accordingly if not within therapeutic range. 8. GERD, present on admission. Active. -Continue pantoprazole 40 mg twice daily. 9. Hypertension, present on admission. Stable. -Continue home metoprolol succinate 12.5 mg daily and losartan 25 mg daily. 10. Dementia, present on admission. Stable. -Continue quetiapine 12.5 mg at bedtime. 11. History of recent PE. -Continue Eliquis. -Discussed increased risk of bleeding on anticoagulation with recurrent falls with the patient daughter Martinez who was well aware of risks and benefits. She would like to continue this and address with the patient's PCP. Disposition: Likely to discharge home with home health versus care home facility in 1-2 days depending upon improvement in mentation and treatment of UTI. Quality VTE Deep Vein Thrombosis/Pulmonary Embolism Present on Admission: No
--- NOTE | 2018-06-17 16:05 | OT.IP.TRT ---
Current Diagnoses Primary adrenocortical insufficiency (06/15/18) Unspecified dementia without behavioral disturbance (06/15/18) Metabolic encephalopathy (06/15/18) Disorder of kidney and ureter, unspecified (06/15/18) Abnormal levels of other serum enzymes (06/15/18) Unspecified fall, initial encounter (06/15/18) Occupational Therapy Treatment Note M2 OT-IP Current Condition Start: 06/16/18 14:53 Freq: Status: Active Protocol: Document 06/16/18 14:53 [facility] (Rec: 06/16/18 15:19 [facility] [id number]) Occupational Therapy Current Condition Current Condition Evaluation Date 06/16/18 Treatment Diagnosis GLF, weakness Diagnosis Onset Date 06/15/18 Post Operative Precautions Other Precautions no precautions noted Weight Bearing Status Weight Bearing Status Weight Bear as Tolerated M3 OT- IP Subjective and Pain Start: 06/16/18 14:53 Freq: Status: Active Protocol: Document 06/17/18 16:04 [facility] (Rec: 06/17/18 16:05 [facility] [id number]) OT- Subjective Occupational Therapy Visit Type Type Patient Refusal Notes Attempted to see pt for shower , pt states too tired and would rather do so tomorrow. Pt still having word finding trouble which may be influenced from having UTI. To attempt to see pt again tomorrow.
[2018-06-17 16:10] LABS: Free T4, Direct Thyroxine 1.03 ng/dL (0.78-2.19)
--- NOTE | 2018-06-17 16:12 | CM.DPC ---
DCP: continued: Dr. Watson confirmed this morning in Team Rounds that she was keeping pt and continuing care at the INPT level. Pt now on IV antibiotics for a UTI. Spoke with Arleen this morning with this update. Dr. Watson also planned to call [facility] later to discuss the POC and her recommendations for pt. [facility] stopped by. He is updated re the No DC today and will hold the HH referral. P: DCP team to follow up tomorrow/please see the DCP notes of yesterday.
[2018-06-17] MEDS: SENNOSIDES 8.6 MG TABLET 17.2 MG PO (20:33)
[2018-06-17] MEDS: QUETIAPINE 25 MG TABLET 12.5 MG PO (20:33)
[2018-06-18] VITALS (9 sets, daily range): BP systolic 97–135; BP diastolic 54–78; PULSE 72–82; RESP 16–20; TEMP 36.4–36.8; O2SAT 95–99
[2018-06-18] MEDS: CIPROFLOXACIN 500 MG TABLET PO (00:33)
--- NOTE | 2018-06-18 04:21 | PC.NURSE ---
Did not sleep all shift, up to the BSC frequently. Declined Percolone elixir @ this time, states I don't need it. Will cont. POC & monitor.
[2018-06-18] MEDS: PANTOPRAZOLE 40 MG TABLET PO ×2 (06:07→19:16)
[2018-06-18] MEDS: LEVOTHYROXINE 100 MCG TABLET PO (06:07)
--- NOTE | 2018-06-18 07:55 | PC.NURSE ---
Addendum entered by Eula Wray R.N. 06/18/18 13:44: GI/ - pt has been up freq this afternnon w/voids, repeating req for miralax although pt did have her dose earlier this am, perfume and toilet water maker assisted to br w/void, ambul hallway w/fww, gait steady, ret to chair w/alarm set. Original Note: Addendum entered by Eula Wray R.N. 06/18/18 11:27: [facility] - When pt dtr Arleen arrived, in to discuss her medications, allergies, new order rec'd for ceftriaxone iv and per this listed allergy will be removed. Original Note: Addendum entered by Eula Wray R.N. 06/18/18 10:32: PAIN - pt is anxious, points to l chest area and states having chest pain, in to examine and an ekg was ordered and completed, pt given 10mg oxycodone elixir and her metoprolol, Dr. Watson reviewed ekg, no recent bm and new order miralax rec'd and admin, pt remains comfortable in chair and no further pain and anxiety lessened after am shower, chair alarm on. Original Note: AM NOTE - awakens, confused, oriented to self, could not name hospital, reoriented, assist x1 person fww, ambul to br, voided, states her back and hip hurt, ret to chair w/alarm set, hr 84, ra 97%.
[2018-06-18] MEDS: OXYCODONE 5 MG/5 ML ORAL SOLUTION 10 MG PO ×3 (08:12→19:24)
[2018-06-18] MEDS: HYDROCORTISONE 10 MG TABLET 20 MG PO ×2 (08:13→17:39)
[2018-06-18] MEDS: DOCUSATE 100 MG CAPSULE PO ×2 (08:13→17:40)
[2018-06-18] MEDS: APIXABAN 5 MG TABLET PO ×2 (08:14→19:16)
[2018-06-18] MEDS: METOPROLOL IR 25 MG TABLET 12.5 MG PO ×2 (08:14→19:16)
[2018-06-18] MEDS: ASPIRIN EC 81 MG TABLET PO (08:14)
[2018-06-18] MEDS: LOSARTAN 25 MG TABLET PO (08:14)
[2018-06-18] MEDS: POLYETHYLENE GLYCOL 3350 17 GM POWD.PACK PO (09:54)
[2018-06-18] MEDS: SODIUM CHLORIDE 0.9% FLUSH 10 ML IV ×2 (09:57→19:17)
--- NOTE | 2018-06-18 10:37 | CM.DPC ---
Addendum entered by Rosalba Lehman R.N. 06/18/18 13:32: Spoke to hospitalist, Dr. Watson. Stated that patient has a UTI that is resistant to the antibiotic that she was on. Stated that they will be trying a different antibiotic. If patient stabilizes by tomorrow, she can go home. Original Note: DCP Cont: Called [facility] and spoke to Abby. Wanted to clarify that they have referral. Stated that they do have. They do not yet have orders or face to face. Let her know that as soon as patient receives discharge orders, will fax over to them. Stated if she is discharged today, can see as soon as tomorrow. P: DCP to continue to follow. Unknown if she will be discharged today. If so, will send information to [facility]. Continue to update daughter, Arleen. Rosalba Lehman, RN/Probe Operator
--- NOTE | 2018-06-18 10:50 | PT.IPTN ---
Current Diagnoses Primary adrenocortical insufficiency (06/17/18) Unspecified dementia without behavioral disturbance (06/17/18) Metabolic encephalopathy (06/17/18) Acute kidney failure, unspecified (06/17/18) Disorder of kidney and ureter, unspecified (06/17/18) Abnormal levels of other serum enzymes (06/17/18) Unspecified fall, initial encounter (06/17/18) Physical Therapy Treatment Note M2 PT-IP Current Condition Start: 06/16/18 12:10 Freq: NEEDED Status: Active Protocol: Document 06/16/18 10:30 HH (Rec: 06/16/18 12:42 HH [email or web address]) Physical Therapy Current Condition Current Condition Evaluation Date 06/16/18 Treatment Diagnosis acute renal failure, chest pain, difficulty in walking, generalized weaknes Onset Date 06/15/18 Precautions Other Precautions no precautions noted Weight Bearing Status Weight Bearing Status Weight Bear as Tolerated M3 PT-IP Subjective Start: 06/16/18 12:10 Freq: NEEDED Status: Active Protocol: Document 06/18/18 10:50 AB (Rec: 06/18/18 12:13 AB [id number]) Subjective Physical Therapy Visit Type Type Treatment Note Visit Start Time 10:50 Visit Stop Time 11:06 Total Visit Minutes 16 Number of PATIENT SERVICE SPECIALIST Visits 0 M4 PT-IP Mobility and Gait Start: 06/16/18 12:10 Freq: NEEDED Status: Active Protocol: Document 06/18/18 10:50 [facility] (Rec: 06/18/18 12:13 AB [id number]) PT-Transfer Assessment Sit to and From Stand Sit to and from Stand Standby Assistance Gait Assessment Gait Gait Assistance Required: Standby Assistance Contact Guard Assist Distance (Feet) 300 Able to Maintain Weight Bearing Status Yes During Gait Assistive Devices Assistive Device Gait Belt Front Wheeled Walker 4 Wheeled Walker Orthotic/Prosthetic Devices or Brace: No Gait Deviations General Gait Pattern Antalgic Decreased Stride Length Decreased Feet Clearance Factors Limiting Gait Function Factors Limiting Gait Function Decreased Activity Tolerance Decreased Strength Difficulty Following Directions Poor Balance Poor Safety Awareness Comments Gait Comments pt ambulated using FWW 250 ft SBA to CGA. pt stated that she uses a 4WW more than a FWW . assessed ambulation using 4WW and pt completed ~ 300 ft SBA to CGA and cues. M5 PT-IP Objective Assessments Start: 06/16/18 12:10 Freq: NEEDED Status: Active Protocol: Document 06/16/18 10:30 HH (Rec: 06/16/18 12:42 HH [id number]) Orientation Orientation/Cognition Level of Alertness Alert Orientation Name Place Situation Language Function Ability Word Finding Difficulties Safety Awareness Decreased Safety Awareness Memory Description Short Term Impaired Usp Impaired Comments A/O to self and situation, delay noted to speech, with some word finding difficulty. Able to makes needs known with PT Gross Range of Motion Upper Extremity ROM Assessment Within Functional Limits Lower Extremity ROM Assessment Within Functional Limits Strength Upper Extremity Strength Assessment Within Functional Limits Lower Extremity Strength Assessment Within Functional Limits Coordination Assessment Gross Coordination Gross Coordination WNL Sensation Assessment Sensation Gross Sensation WNL M6 PT-IP Treatment Start: 06/16/18 12:10 Freq: NEEDED Status: Active Protocol: Document 06/18/18 10:50 [facility] (Rec: 06/18/18 12:13 AB [id number]) Physical Therapy Treatment Education Education Provided Safety M7 PT-IP Assessment and Plan Start: 06/16/18 12:10 Freq: NEEDED Status: Active Protocol: Document 06/18/18 10:50 [facility] (Rec: 06/18/18 12:13 AB [id number]) PT Summary Assessment and Plan Potential Rehabilitation Potential Good Summary Impairments Pain ROM Strength Balance Coordination Sensation Tone Cognition Bed Mobility Transfers Gait Activity Tolerance Progress Towards Goals Progressing Toward Goals Assessment Summary pt requiring SBA to CGA with ambulation using FWW/4WW. pt may go home with assistance when medically stable. Goals Bed Mobility Goal Standby Assistance Transfer Goal Standby Assistance Front Wheeled Walker Four Wheeled Walker Gait Goal Standby Assistance Front Wheel Walker Four Wheel Walker Gait Distance 500 Days to Meet Goals 3 Frequency of Treatment Frequency Of Treatment Once a Day Treatment Plan Physical Therapy Treatment Plan Transfer Training Gait Training Therapeutic Exercise Balance Retraining Discharge Planning Recommendations To Nursing Amount of Assist Needed 1 Person Assist Discharge Recommendations PT Discharge Recommendations Home with 04/01 Assist Home Health
--- NOTE | 2018-06-18 11:06 | P.PN_ITS ---
Subjective Date Patient Seen: 06/18/18 Interval history: Javier Steen is a 73-year-old female with a past medical history significant for CAD, previous CVA with baseline dementia, Harding's disease, and recurrent ground level falls who was admitted for ground level fall, UTI, acute kidney injury and metabolic encephalopathy. The patient is resting in bed comfortably and in no acute distress. She endorses chronic chest pain which is well controlled with oxycodone. She also reports continued dysuria. She denies headache, cough, shortness of breath, abdominal pain, nausea, vomiting, fever, chills, diarrhea or constipation. She is voiding without difficulty. She has not had a bowel movement in several days. She is up ambulating with assistance. She continues to be intermittently confused and somewhat anxious. Exam Vital Signs (past 8 hours): - 06/18/18 00:00 06/18/18 04:25 Temperature 97.8 F Pulse Rate 76 Respiratory Rate 16 Blood Pressure 105/58 L Pulse Oximetry 97 98 Oxygen Delivery Method Room Air Oxygen Flow Rate 0 Narrative Exam Narrative: General: Elderly female lying in bed and in no acute distress, well-developed, well-nourished, appropriately interactive HEENT: Normocephalic, atraumatic. External ears without defect. Pupils equal, round, and reactive to light and accommodation. Anicteric sclerae, moist conjunctivae, and no lid lag. Neck: Supple with full range of motion. No lymphadenopathy or thyromegaly. Cardiovascular: Regular rate and rhythm without murmurs, rubs, or gallops appreciated. Reproducible chest pain with palpation. Pulmonary: Clear to auscultation bilaterally without crackles, wheezes, or rhonchi. Normal respiratory effort with no use of accessory muscles. Abdomen: Soft, bowel sounds present, nontender, nondistended. Mild suprapubic tenderness. No hepatosplenomegaly or masses appreciated. Extremities: No clubbing, cyanosis, or edema. Skin: Normal temperature, turgor, and texture; no rash, ulcers, or subcutaneous nodules appreciated. Neurological: Cranial nerves grossly intact. Psychiatric: Normal mood and affect. Alert and oriented to person only. Mild confusion. Delayed response and short-term memory recall deficit. Objective Labs Result Diagrams: 06/17/18 05:55 06/17/18 05:55 Labs: Laboratory Results - last 24 hr 06/17/18 05:55 Free T4 1.03 Assessment & Plan Plan: Assessment/Plan Narrative: Javier Steen is a 73-year-old female with a past medical history significant for CAD, previous CVA with baseline dementia, Harding's disease, and recurrent ground level falls who was admitted for ground level fall, acute kidney injury and metabolic encephalopathy. 1. Acute ground level fall, present on admission. Active. -Possibly due to metabolic encephalopathy and UTI vs. physical deconditioning vs. mechanical. -Continue PT and OT. Physical therapy recommending 24 hr home care and home health or correction facility for rehabilitation. 2. Acute metabolic encephalopathy, present on admission. Active. -Likely secondary to probable UTI and dehydration. -Patient has dementia but per family patient is not at baseline mental cognition. -Continue to treat underlying cause. -Continue quetiapine 12.5 mg at bedtime. 3. Acute proteus mirabilis UTI, present on admission. Active. -Patient complains of dysuria. -Urinalysis with culture grew Proteus mirabilis with resistance to fluoroquinolones, Bactrim, and nitrofurantoin. Patient has antibiotic allergy to penicillins. She has received ceftriaxone within the last year and a half during previous hospitalization here without complications. Therefore, will start ceftriaxone 2 g IV daily. Discontinued ciprofloxacin. 4. Acute kidney injury, present on admission. Resolved. -Likely secondary to prerenal azotemia and Proteus mirabilis UTI. -Baseline creatinine 0.80-1.0. Initial creatinine on admission 2.10. Has returned to baseline. -Continue to monitor renal function daily. -Avoid nephrotoxic agents. 5. Chronic chest pain with elevated troponin, present on admission. Ongoing. -Likely musculoskeletal due to costochondritis in etiology as chest pain is reproducible with palpation. -Patient has history of chronic chest pain with negative cardiac workup to date. -Patient had slightly elevated troponin on admission at 0.041. Repeat troponin within normal limits. -Continue oxycodone 10 mg 4 times daily as needed for severe pain. -Echocardiogram demonstrated normal EF 55-60% without focal wall motion abnormalities or significant valvular heart disease. 6. Manpreet's disease, chronic, present on admission. Stable. -Continue home hydrocortisone 20 mg twice daily. 7. Hypothyroidism, chronic, present on admission. Active. -Patient is on levothyroxine 100 mcg daily. -TSH was high at 6.86. Ordered free T4 which is low normal at 1.03. Continue to monitor outpatient in 3 months. 8. GERD, present on admission. Active. -Continue pantoprazole 40 mg twice daily. 9. Hypertension, present on admission. Stable. -Continue home metoprolol succinate 12.5 mg daily and losartan 25 mg daily. 10. Dementia, present on admission. Stable. -Continue quetiapine 12.5 mg at bedtime. 11. History of recent PE. -Continue Eliquis. -Discussed increased risk of bleeding on anticoagulation with recurrent falls with the patient's daughter Arleen who was well aware of risks and benefits. She would like to continue this and address with the patient's PCP. Disposition: Likely to discharge home with home health versus correction facility in 1-2 days depending upon improvement in mentation and treatment of UTI. Quality VTE Deep Vein Thrombosis/Pulmonary Embolism Present on Admission: No
--- NOTE | 2018-06-18 11:17 | OT.IP.TRT ---
Current Diagnoses Primary adrenocortical insufficiency (06/17/18) Unspecified dementia without behavioral disturbance (06/17/18) Metabolic encephalopathy (06/17/18) Disorder of kidney and ureter, unspecified (06/17/18) Abnormal levels of other serum enzymes (06/17/18) Unspecified fall, initial encounter (06/17/18) Occupational Therapy Treatment Note M2 OT-IP Current Condition Start: 06/16/18 14:53 Freq: Status: Active Protocol: Document 06/16/18 14:53 [facility] (Rec: 06/16/18 15:19 [facility] [id number]) Occupational Therapy Current Condition Current Condition Evaluation Date 06/16/18 Treatment Diagnosis GLF, weakness Diagnosis Onset Date 06/15/18 Post Operative Precautions Other Precautions no precautions noted Weight Bearing Status Weight Bearing Status Weight Bear as Tolerated M3 OT- IP Subjective and Pain Start: 06/16/18 14:53 Freq: Status: Active Protocol: Document 06/18/18 11:14 [facility] (Rec: 06/18/18 11:17 [facility] [id number]) OT- Subjective Occupational Therapy Visit Type Type Patient Refusal Notes Pt refused OT treatment as just completed showering with nursing aid earlier. Pt did express interest in getting bedrail for home use. Spoke to pt about that home health will be going out to her house after she goes home and can also give her more recommendations/suggestions to help increase safety in the home.
--- NOTE | 2018-06-18 11:47 | OT.IP.TRT ---
Current Diagnoses Primary adrenocortical insufficiency (06/17/18) Unspecified dementia without behavioral disturbance (06/17/18) Metabolic encephalopathy (06/17/18) Disorder of kidney and ureter, unspecified (06/17/18) Abnormal levels of other serum enzymes (06/17/18) Unspecified fall, initial encounter (06/17/18) Occupational Therapy Treatment Note M2 OT-IP Current Condition Start: 06/16/18 14:53 Freq: Status: Active Protocol: Document 06/16/18 14:53 [facility] (Rec: 06/16/18 15:19 [facility] [id number]) Occupational Therapy Current Condition Current Condition Evaluation Date 06/16/18 Treatment Diagnosis GLF, weakness Diagnosis Onset Date 06/15/18 Post Operative Precautions Other Precautions no precautions noted Weight Bearing Status Weight Bearing Status Weight Bear as Tolerated M3 OT- IP Subjective and Pain Start: 06/16/18 14:53 Freq: Status: Active Protocol: Document 06/18/18 11:42 [facility] (Rec: 06/18/18 11:47 [facility] [id number]) OT- Subjective Occupational Therapy Visit Type Type Treatment Note Notes Spoke to pt's son and daughter briefly as pt getting agitated as pt wanting to visit with her daughter and not wanting distractions. Pt's daughter not aware prior that pt was not getting into the shower at home, just sponging off, and states will be sure to come and assist pt from now on. Pt's daughter agrees to having home health come out to the house to work with pt and focus on getting stronger, increase activity tolerance, and provide any safety recommendations/suggestions for pt. In addition pt' s daughter states still working on trying to find caregivers during the day.
[2018-06-18] MEDS: CEFTRIAXONE 2 GM/50 ML FROZ.PIGGY IV (12:24)
--- NOTE | 2018-06-18 14:04 | CM.DPC ---
DCP Cont: Briefly checked on patient, was sleeping in her chair, daughter was not present. Went ahead and called daughter, Arleen, to reach out to her and introduce self over phone. She is aware that her mother will be here another day. Plan is still [facility]. Offered to meet with daughter tomorrow, should she have any questions regarding discharge. Stated that she would like to meet with this process planner, and discuss resources in the home, regarding caregivers. P: Plan is still [facility] when patient is stable. Will meet with daughter, Arleen, to meet with her and offer any additional resources that she may need. Rosalba Lehman RN/Website Designer
[2018-06-18] MEDS: SENNOSIDES 8.6 MG TABLET 17.2 MG PO (17:40)
[2018-06-18] MEDS: QUETIAPINE 25 MG TABLET 12.5 MG PO (19:16)
[2018-06-19 01:00] VITALS: O2SAT 97
[2018-06-19] MEDS: OXYCODONE 5 MG/5 ML ORAL SOLUTION 10 MG PO (02:55)
[2018-06-19 05:45] LABS: Basophils Percent Auto 0.7 % (0-2); Eosinophils Percent Auto 1.2 % (2-4); Hematocrit 29.3 % (36-46); Hemoglobin 9.6 g/dL (12.0-16.0); Lymphocytes Percent Auto 30.3 % (25-40); Mean Corpuscular HGB Conc 32.7 % (30-36); Mean Corpuscular Hemoglobin 21.7 PG (26-34); Mean Corpuscular Volume 66.4 fL (80-100); Monocytes Percent Auto 9.8 % (3-14); Neutrophils Absolute Auto 4900 /uL (1500-7000); Platelet Count 237 X10^3/uL (150-400); Red Blood Cell Count 4.41 X10^6/uL (4.0-5.2); Red Cell Distribution Width 21.2 % (11.6-14.8); White Blood Cell Count 8.4 X10^3/uL (4.5-11.0)
[2018-06-19 05:52] VITALS: BP 145/85; PULSE 71; RESP 17; TEMP 36.6; O2SAT 99
[2018-06-19 06:01] LABS: Add Manual Diff / Slide Review SLIDE REVIEW
[2018-06-19 06:03] LABS: BUN Creatinine Ratio 16.7 (6-22); Blood Urea Nitrogen 15 mg/dL (7-17); Calcium 9.2 mg/dL (8.4-10.2); Carbon Dioxide 30 mmol/L (22-32); Chloride 99 mmol/L (98-107); Estimated Glomerular Filt Rate > 60.0 mL/min (>60); Glucose 121 mg/dL (80-110); HEMOLYSIS < 15 (0-50); Potassium 3.6 mmol/L (3.4-5.1); Sodium 137 mmol/L (137-145)
[2018-06-19] MEDS: PANTOPRAZOLE 40 MG TABLET PO (06:29)
[2018-06-19] MEDS: LEVOTHYROXINE 100 MCG TABLET PO (06:29)
--- NOTE | 2018-06-19 07:18 | P.DS_ITS ---
History of Present Illness Date Patient Seen: 06/17/18 Chief complaint: glf-head and leg pain Narrative: Patient is a 73-year-old female with a history of dementia who lives at home with her son. He was asleep when he heard his mother fall and found her on the ground over her walker. It is unclear how she got to the floor. It is unclear whether she passed out. Patient is unable to provide any history. She appears to have been going to the bathroom and lost her balance. The patient was brought into the emergency department. She was initially poorly responsive. However she was more responsive but confused. The daughter reports she has been increasingly more confused over the past several days. They are not aware of any fever or chills. Patient has had no cough or shortness of breath. She has had no nausea vomiting or diarrhea. Further history is difficult to obtain as patient is unable to provide any history. The patient was evaluated in the emergency department. There was concern regarding possible fracture. However x -ray of the pelvis revealed old fractures. There was no evidence of hip fracture. Cat scan of the brain was obtained and there was no acute injury to the brain. Patient was found to have a mildly elevated troponin at 0.034. She had complained of chest pain and was seen at [facility] on Wednesday. Her EKG was unremarkable. Given her mildly elevated troponin it was felt she would be best served by being admitted to the hospital. In addition the patient was found to have acute renal failure. 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 Family notes she has been eating and drinking normally however she was found to have acute renal failure and admitted to the hospital for further evaluation. Discharge Providers Date of admission: 06/17/18 15:29 Primary care physician: Joel Chan MD Consults: 06/15/18 17:00 Consult to Occupational Therapy Evaluate & Treat Comment: Physician Instructions: Evaluate and treat Consult to Physical Therapy Evaluate & Treat Comment: Physician Instructions: Evaluate and Treat 06/18/18 10:32 Consult to Home Health Routine Comment: Reason For Exam: Nursing, P.T/O.T/[employer] Discharge provider: Brianne Watson DO Discharge Date: 06/19/18 Summary Discharge Diagnosis: 1. Acute ground level fall, present on admission. Resolved. 2. Acute metabolic encephalopathy, present on admission. Improving. 3. Acute proteus mirabilis UTI, present on admission. Resolving. 4. Acute kidney injury, present on admission. Resolved. 5. Chronic musculoskeletal chest pain with elevated troponin, present on admission. Ongoing. 6. Manpreet's disease, chronic, present on admission. Stable. 7. Hypothyroidism, chronic, present on admission. Active. 8. GERD, present on admission. Active. 9. Hypertension, present on admission. Stable. 10. Dementia, present on admission. Stable. 11. History of recent PE. Status at Discharge Cognitive/behavioral status at discharge: Javier Steen is a 73-year-old female with a past medical history significant for CAD, previous CVA with baseline dementia, Manpreet's disease, and recurrent ground level falls who was admitted for ground level fall, UTI, acute kidney injury and metabolic encephalopathy. The patient was given IV fluids and her acute kidney injury resolved readily. The patient's urine was grossly positive for infection and preliminarily growing gram-negative bacilli therefore ciprofloxacin was started. However, the urine culture resulted Proteus mirabilis resistant to fluoroquinolones and the patient was placed on ceftriaxone. Cephalosporins were listed as a medication allergy but after further investigation the patient had received ceftriaxone at previous hospital admission in last 1 year without issue. The patient's mentation waxed and waned throughout admission but was improving and close to baseline after appropriate antibiotics were started. She has dementia at baseline. She continued to work with Physical therapy throughout hospital admission who recommended home health. Of note, she is on Eliquis for history of PE in January of 2018. Discussed the risk benefit ratio with the patient's daughter who is DPOA and she prefers to continue the medication despite recurrent falls and high risk of bleeding and discuss timing for discontinuation with her PCP. The patient is being discharged home with a 5 day course of cefdinir 300 mg twice daily and home health in stable condition. Functional status at discharge: uses cane/walker Exam Vital Signs (past 8 hours): - 06/18/18 23:45 06/19/18 01:00 06/19/18 05:52 Temperature 97.9 F 97.8 F Pulse Rate 76 71 Respiratory Rate 16 17 Blood Pressure 107/61 145/85 H Pulse Oximetry 98 97 99 Oxygen Delivery Method Room Air Oxygen Flow Rate 0 Narrative Exam Narrative: General: Elderly female lying in bed and in no acute distress, well-developed, well-nourished, appropriately interactive HEENT: Normocephalic, atraumatic. External ears without defect. Pupils equal, round, and reactive to light and accommodation. Anicteric sclerae, moist conjunctivae, and no lid lag. Neck: Supple with full range of motion. No lymphadenopathy. Cardiovascular: Regular rate and rhythm without murmurs, rubs, or gallops appreciated. Continued reproducible chest pain with palpation. Pulmonary: Clear to auscultation bilaterally without crackles, wheezes, or rhonchi. Normal respiratory effort with no use of accessory muscles. Abdomen: Soft, bowel sounds present, nontender, nondistended. No hepatosplenomegaly or masses appreciated. Extremities: No clubbing, cyanosis, or edema. Skin: Normal temperature, turgor, and texture; no rash, ulcers, or subcutaneous nodules appreciated. Neurological: Cranial nerves grossly intact. Psychiatric: Normal mood and affect. Alert and oriented to person only. Mild confusion that is improved. Delayed response and short-term memory recall deficit. Objective Labs Result Diagrams: 06/19/18 05:18 06/19/18 05:18 Labs: Laboratory Results - last 24 hr 06/16/18 06/19/18 06/19/18 05:08 05:18 05:18 WBC 8.4 RBC 4.41 Hgb 9.6 L Hct 29.3 L MCV 66.4 L MCH 21.7 L MCHC 32.7 RDW 21.2 H Plt Count 237 Neut % (Auto) 58.0 Lymph % (Auto) 30.3 [place] % (Auto) 9.8 Eos % (Auto) 1.2 L Baso % (Auto) 0.7 Neut # (Auto) 4900 Smear Path Review Sodium 137 Potassium 3.6 Chloride 99 Carbon Dioxide 30 BUN 15 Creatinine 0.90 Estimated GFR > 60.0 BUN/Creatinine Ratio 16.7 Glucose 121 H Calcium 9.2 Discharge Plan Discharge Plan Patient Disposition: Home Health Service Transfer to: [facility] Discharge comment: You are being discharged home with [facility] for PT/OT /Nursing. You were prescribed an antibiotic called cefdinir 300 mg twice daily to take for 5 days to finish treating your UTI. Please follow-up with your PCP, Dr. Chan, in the next 1-2 weeks. Due to recurrent UTI, recommend a Urology referral by PCP as soon as available. Discharge Med Rec/Prescriptions Prescriptions: New quetiapine 25 mg Tablet 12.5 mg PO BEDTIME Qty: 30 RF: 0 polyethylene glycol 3350 17 gram Powder In Packet 17 gm PO DAILY Qty: 30 RF: 0 cefdinir 300 mg capsule 300 mg PO Q12H 5 Days Qty: 10 RF: 0 Continue baclofen 10 MG tablet 10 mg PO BEDTIME Qty: 0 RF: 0 aspirin 81 MG tablet,delayed release (DR/EC) 81 mg PO 0900 Qty: 0 RF: 0 diphenhydramine HCl [Benadryl Allergy] 25 MG tablet 25 mg PO BEDTIME PRN (Reason: Sleep) Qty: 0 RF: 0 pantoprazole 40 MG tablet,delayed release (DR/EC) 40 mg PO BID Qty: 0 RF: 0 metoprolol succinate 25 mg tablet extended release 24 hr 12.5 mg PO 2100 RF: 0 apixaban 5 mg tablet 5 mg PO BID RF: 0 hydrocortisone 10 mg tablet 20 mg PO BID RF: 0 vortioxetine 10 mg Tablet 15 mg PO 0900 RF: 0 levothyroxine 100 mcg tablet 100 mcg PO 0700 RF: 0 oxycodone 10 mg tablet 10 mg PO QID RF: 0 multivitamin Tablet 1 tab PO 0900 RF: 0 losartan 25 mg tablet 25 mg PO 0900 RF: 0 Discontinued sucralfate 1 gram Tablet 1 g PO QID Qty: 0 RF: 0 Follow up/Referrals: Joel Chan MD [Primary Care Provider] - 06/24/18 8:00 am (Hospital follow- up for ground level fall, metabolic encephalopathy secondary to Proteus UTI, and KANDICE) Provider Discharge Instructions Diet: Diet as Tolerated Activity: Activity as tolerated with walker. Skin/Wound/Dressing Care Report to your healthcare provider any signs of infection, such as:: chills, fever and night sweats Visit Report/Discharge Packet Instructions: DI for Urinary Tract Infection (UTI) Visit Report Forms: Stroke Signs & Symptoms Discharge Data Primary Care Provider: Joel Chan Attending Provider: Lisa Epps Admit Date/Time: 06/17/18 15:29 Quality VTE Deep Vein Thrombosis/Pulmonary Embolism Present on Admission: No
[2018-06-19 07:33] LABS: Microcytosis 2+
[2018-06-19 07:34] LABS: Burr Cells 1+; Poikilocytosis 2+
[2018-06-19 07:42] LABS: HEMOLYSIS < 15 (0-50); Iron 27 ug/dL (37-170)
[2018-06-19 07:43] LABS: Magnesium 1.9 mg/dL (1.6-2.3)
[2018-06-19 07:52] LABS: Percent Iron Saturation 8 % (15-50); Total Iron Binding Capacity 319 ug/dL (265-497); Transferrin 256 mg/dL (206-381)
[2018-06-19 07:55] VITALS: BP 152/90; PULSE 80; RESP 18; TEMP 36.6; O2SAT 100
[2018-06-19] MEDS: LOSARTAN 25 MG TABLET PO (08:28)
[2018-06-19] MEDS: POLYETHYLENE GLYCOL 3350 17 GM POWD.PACK PO (08:28)
[2018-06-19] MEDS: METOPROLOL IR 25 MG TABLET 12.5 MG PO (08:28)
[2018-06-19] MEDS: HYDROCORTISONE 10 MG TABLET 20 MG PO (08:29)
[2018-06-19] MEDS: DOCUSATE 100 MG CAPSULE PO (08:33)
[2018-06-19] MEDS: APIXABAN 5 MG TABLET PO (08:46)
[2018-06-19] MEDS: ASPIRIN EC 81 MG TABLET PO (08:46)
[2018-06-19] MEDS: SODIUM CHLORIDE 0.9% FLUSH 10 ML IV (08:47)
--- NOTE | 2018-06-19 08:54 | CM.DPC ---
DCP Cont: Patient is being discharged home today, per hospitalist, Dr. Watson. Called and updated Abby at [facility]. Faxed over discharge summary, face to face, and orders. She stated that they can be at the home tomorrow, as long as they can get in touch with family member. Called and spoke to daughter, Arleen. She is aware of discharge, and [facility] coming tomorrow. She stated that she would be at work, but her brother, Omega would be home. She gave this nurse case manager his number, and let Abby at [place] know. Also, wrote his number on face sheet. Will meet with daughter this morning, for IMM also needs to be signed. P: Patient is to be discharged home today with [facility] nursing, P.T/O.T, and CENTRAL OFFICE INSTALLER. Rosalba Lehman RN/Supervisor Electronic Testing
[2018-06-19 08:59] VITALS: O2SAT 100
[2018-06-19 10:07] VITALS: O2SAT 95
--- NOTE | 2018-06-19 10:12 | PC.NURSE ---
Addendum entered by Eula Wray R.N. 06/19/18 12:23: DC - when dtr arrived, reviewed dc instructions, scripts sent electronically, the iv abx dose was admin, hep lock and tele dc'd, dressed, has clothing, bag, glasses and cell phone, tsf to wc and escorted to dtr's car. Original Note: AM NOTE - awakened for breakfast, assist x 1 fww ambul to br w/void, ret to chair w/alarm set, no complaint discomfort. Pt will dc home today, tele dc'd and assisted with clothing when pt became anxious.
== END 2018-06-19 10:45 | disposition home health service (06) | DRG 689 ==
LOC: ED 11:17 → AC 11:44
PROVIDERS: Internal Medicine; Admitting Provider Internal Medicine; Emergency Provider Emergency Medicine; PCP Family Medicine; Visit Provider Internal Medicine
DX: N39.0 Urinary tract infection, site not specified (principal); G93.41 Metabolic encephalopathy; N17.9 Acute kidney failure, unspecified; E27.1 Primary adrenocortical insufficiency; B96.4 Proteus (mirabilis) (morganii) as the cause of diseases classified elsewhere; R07.9 Chest pain, unspecified; F01.50 Vascular dementia, unspecified severity, without behavioral disturbance, psychotic disturbance, mood disturbance, and anxiety; E86.0 Dehydration; W18.30XA Fall on same level, unspecified, initial encounter; Y92.019 Unspecified place in single-family (private) house as the place of occurrence of the external cause; Z86.711 Personal history of pulmonary embolism; Z79.01 Long term (current) use of anticoagulants; E03.9 Hypothyroidism, unspecified; K21.9 Gastro-esophageal reflux disease without esophagitis; I10 Essential (primary) hypertension
CPT/HCPCS: 36415; 70450; 72170; 73552; 80048; 80053; 80320; 81001; 81003; 81015; 82140; 82550; 82553; 83540; 83550; 83735; 83880; 84145; 84439; 84443; 84484; 85025; 85610; 85730; 87077; 87086; 87186; 93005; 93306; 97116; 97127; 97161; 97165; 97530; 99284; 99285; G0378; J0696; J1720

== ENCOUNTER → 2019-01-06 12:56 | Outpatient (CLI) | payer OTHER, MEDICARE, SELFPAY ==
[2018-06-15 13:11] VITALS: BMI 22.5
--- NOTE | 2019-01-06 | DI.RAD.S_ITS ---
PROCEDURE: XR LUMBAR SPINE 2-3V INDICATIONS: Radiculopathy, lumbar region TECHNIQUE: 3 views of the lumbar spine were acquired. COMPARISON: None. FINDINGS: Bones: 5 [id number] vertebrae are present. There is mildly dextroscoliotic bony alignment. No vertebral body compression fractures. No suspicious bony lesions. Mild to moderate degenerative disc disease is again seen, with no evidence of compression fracture or subluxation. Soft tissues: Overlying bowel gas pattern is normal. No suspicious soft tissue calcifications. IMPRESSION: Mild dextroscoliosis centered at L2-3. Mild to moderate degenerative disc disease and facet osteoarthritis that becomes slightly more prominent as the lumbosacral junction is reached. The degree of degeneration found certainly would predispose to spinal and foraminal stenosis and depending on the clinical status followup by MR scanning may be warranted. Dictated by: Reinaldo Calderón M.D. on 01/06/2019 at 14:39 Approved by: Reinaldo Calderón M.D. on 01/06/2019 at 14:40
--- NOTE | 2019-01-06 | DI.RAD.S_ITS ---
PROCEDURE: XR HIP W PEL IF DONE BILAT 2V INDICATIONS: Radiculopathy, lumbar region TECHNIQUE: 4 views of the hips bilaterally were acquired. COMPARISON: [facility], CR, XR HIP W PEL IF DONE LT 2V, 06/09/2018, 12:59. [facility], CR, XR HIP W PEL IF DONE LT 2V, 05/18/2018, 12:03. FINDINGS: Bones: No fractures or dislocations. There has been a prior right total hip arthroplasty. This device shows no evidence of loosening or disruption. [id number] left hip osteoarthritis is present, stable over time, and what appears to be a prior obturator ring fracture on the right is again noted having healed significantly showing no evidence of instability at this time, with reference to the prior plain film imaging from late 2018. No suspicious bony lesions. The visualized pelvic ring appears intact. Soft tissues: No suspicious soft tissue calcifications or masses. IMPRESSION: Right hip arthroplasty stable over time. Left hip degenerative osteoarthritis is mild to moderate in severity and stable also. Continued healing of what appears to be stable right-sided obturator ring fracture involving the anterior column and middle third of the inferior obturator ring. Dictated by: Reinaldo Calderón M.D. on 01/06/2019 at 14:41 Approved by: Reinaldo Calderón M.D. on 01/06/2019 at 14:43
== END ==
PROVIDERS: PCP Family Medicine; Visit Provider Family Medicine
DX: M54.16 Radiculopathy, lumbar region (principal); M25.551 Pain in right hip; S63.501A Unspecified sprain of right wrist, initial encounter; M51.37 Other intervertebral disc degeneration, lumbosacral region; M47.817 Spondylosis without myelopathy or radiculopathy, lumbosacral region; M16.12 Unilateral primary osteoarthritis, left hip
CPT/HCPCS: 72100; 73521

== ENCOUNTER → 2019-04-07 06:36 | Outpatient (CLI) | payer MEDICARE, OTHER, SELFPAY ==
[2018-06-15 13:11] VITALS: BMI 22.5
--- NOTE | 2019-04-07 | DI.CT.S_ITS ---
PROCEDURE: CT HEAD/BRAIN WO CON INDICATIONS: Cardiomegaly;Cerebral infarction effacia TECHNIQUE: Noncontrast 4.5 mm thick angled axial sections acquired from the foramen magnum to the vertex, with coronal and sagittal reformats. For radiation dose reduction, the following was used: automated exposure control, adjustment of mA and/or kV according to patient size. COMPARISON: [facility], CT, CT HEAD/BRAIN WO CON, 06/15/2018, 8:03. FINDINGS: Image quality: Excellent. CSF spaces: Basal cisterns are patent. No extra-axial fluid collections. The ventricles are symmetric in size and shape. Brain: No intracranial bleeds or masses. There is cerebral volume loss for age, with resultant ventricular and sulcal prominence. There are periventricular and deep white matter chronic small vessel ischemic changes. There is intracranial internal carotid artery atherosclerosis. Skull and face: Calvarium and visualized facial bones appear intact, without suspicious lesions. Sinuses: Visualized sinuses and mastoids are clear. IMPRESSION: 1. No acute intracranial abnormalities. Dictated by: Simone Sin M.D. on 04/07/2019 at 9:37 Approved by: Simone iSn M.D. on 04/07/2019 at 9:39
--- NOTE | 2019-04-07 | DI.ECHO.S_ITS ---
[facility]---------+ [facility] +---------+ : : [address] : : : : [id number] : : : : Phone: [phone]+ Echocardiogram Report + + :Name: BETTY AMADOR Study Date: 04/07/2019 Height: 64 in : :[facility] Weight: 140 lb : : Gender: Female BSA: 1.7 m2 : :: 1945 Age: 73 yrs BP: 152/90 mmHg: :Reason For Study: CVA : : Performed By: Sarah Lloyd : :Referring: JERE JACKSON L : + + Interpretation Summary The left ventricle is normal in size, wall thickness, and systolic function without any focal wall motion abnormalities with the ejection fraction visually estimated to be 55-60%. Diastolic parameters suggest a relaxation abnormality of the left ventricle, consistent with probable normal filling pressures. There has been no significant change since the previous study. The right ventricle is normal size and systolic function is at the lower limits of normal but appears unchanged compared to the previous study. Pulmonary artery pressures cannot be estimated because of the lack of a measurable TR jet velocity but the IVC suggests a CVP of around 3 mmHg. The left atrium is borderline dilated but grossly appears unchanged compared to the previous study. The interatrial septum is intact with no evidence for an atrial septal defect or interatrial shunt by Doppler examination or injection of echo contrast. There is no significant valvular heart disease. Procedure: A two-dimensional transthoracic echocardiogram with color flow and Doppler was performed. The study quality was technically adequate. Comparison is made with the echocardiogram of 06-17-18. The patient was in normal sinus rhythm during the exam. Left Ventricle: The left ventricle is normal in size, wall thickness, and systolic function without any focal wall motion abnormalities. The ejection fraction is estimated to be 55-60%. Diastolic parameters suggest a relaxation abnormality of the left ventricle, consistent with probable normal filling pressures. There has been no significant change since the previous study. Right Ventricle: The right ventricle is normal size. Right ventricular systolic function is at the lower limits of normal. This is unchanged compared to the previous study. Atria: The left atrium is borderline dilated. This is grossly unchanged compared to the previous study. Right atrial size is normal. The interatrial septum is intact with no evidence for an atrial septal defect. There is no Doppler evidence for an atrial septal defect. Injection of contrast documented no interatrial shunt. Mitral Valve: The mitral valve is grossly normal. There is trace mitral regurgitation. This is unchanged compared to the previous study. Aortic Valve: There is mild aortic valve sclerosis. The aortic valve opens well. There is no aortic valve stenosis. No aortic regurgitation is present. Tricuspid Valve: The tricuspid valve leaflets are thin and pliable. There is trace tricuspid regurgitation. Pulmonary artery pressures cannot be estimated because of the lack of a measurable TR jet velocity but the IVC suggests a CVP of around 3 mmHg. Pulmonic Valve: The pulmonic valve is not well seen, but is grossly normal. There is no pulmonic valvular regurgitation. There is no significant valvular heart disease. Great Vessels: The aortic root is normal size. The ascending aorta could not be visualized. The aortic arch could not be visualized. The IVC is of normal diameter and collapses greater than 50% with a sniff. This suggests a low right atrial pressure of 3 mm Hg. Pericardium/ Pleura There is no pericardial effusion. There is no pleural effusion. MMode/2D Measurements & Calculations LVIDd: 4.0 cm Ao root diam: 3.4 cm LVIDs: 2.8 cm FS: 29.0 % IVSd: 0.84 cm LVPWd: 0.90 cm LV hawkins. diameter/BSA (cm/m^2): 2.4 LV sys. diameter/BSA (cm/m^2): 1.7 LA dimension: 2.8 cm RA long axis: 4.6 cm LA A2 area: 20.2 cm2 RA area: 12.0 cm2 LA A4 area: 18.1 cm2 RA vol: 26.3 ml LA length (vol): 5.6 cm RA : 15.6 ml/m2 LA vol: 55.1 ml IVC diam: 0.88 cm LA vol index: 32.8 ml/m2 RVDd major: 5.7 cm RVD1 (basal): 2.9 cm RVD2 (mid): 2.4 cm Doppler Measurements & Calculations Ao V2 max: 128.3 cm/sec MV E max waqas: 55.5 cm/sec Ao V2 mean: 84.3 cm/sec MV A max waqas: 67.2 cm/sec Ao max P.6 mmHg MV E/A: 0.83 Ao mean P.3 mmHg Med Peak E' Waqas: 4.0 cm/sec Ao V2 VTI: 27.6 cm E/E' med: 13.9 Lat Peak E' Waqas: 4.8 cm/sec E/E' lat: 11.5 E/e' average: 12.7 MV dec time: 0.29 sec MV P1/2t: 87.0 msec TR max waqas: 199.3 cm/sec MV P1/2t max waqas: 55.3 cm/sec TR max P.9 mmHg MVA(P1/2t): 2.5 cm2 PA V2 max: 76.2 cm/sec PA V2 mean: 41.3 cm/sec PA mean P.90 mmHg PA Accel Time: 0.13 sec Reading Physician:ANETA
== END ==
PROVIDERS: PCP Family Medicine; Visit Provider Family Medicine
DX: I63.9 Cerebral infarction, unspecified (principal); I51.7 Cardiomegaly
CPT/HCPCS: 70450; 93306

== ENCOUNTER → 2019-05-20 12:05 | Outpatient (CLI) | payer MEDICARE, OTHER, SELFPAY ==
[2018-06-15 13:11] VITALS: BMI 22.5
--- NOTE | 2019-05-20 | DI.RAD.S_ITS ---
PROCEDURE: XR FINGER RT MIN 2V INDICATIONS: Injury to Right Middle Finger TECHNIQUE: 3 views of the right third digit acquired. COMPARISON: None. FINDINGS: Bones: There is a minimally displaced fracture in the tuft of the third distal phalanx. There is moderate to severe joint space narrowing of the visualized interphalangeal joints in the second through fourth digits with subchondral sclerosis and mild osteophytosis. There is ulnar sided deviation of the second distal interphalangeal joint. Soft tissues: No suspicious soft tissue calcifications. There is periarticular soft tissue swelling around the visualized interphalangeal joints. IMPRESSION: 1. Minimally displaced fracture of the third distal phalanx. 2. Moderate osteoarthritic changes of the visualized interphalangeal joints most prominent at the second DIP joint, with suggestion of inflammatory osteoarthritis. Dictated by: Jayme Chacon M.D. on 05/20/2019 at 13:08 Approved by: Jayme Chacon M.D. on 05/20/2019 at 13:11
== END ==
PROVIDERS: PCP Family Medicine; Visit Provider Family Medicine
DX: S67.192A Crushing injury of right middle finger, initial encounter (principal); S62.632A Displaced fracture of distal phalanx of right middle finger, initial encounter for closed fracture; X58.XXXA Exposure to other specified factors, initial encounter
CPT/HCPCS: 73140

== ENCOUNTER → 2019-06-22 12:26 | Outpatient (CLI) | payer OTHER, MEDICARE, SELFPAY ==
[2018-06-15 13:11] VITALS: BMI 22.5
--- NOTE | 2019-06-22 | DI.RAD.S_ITS ---
PROCEDURE: XR KNEE RT 1TO2V INDICATIONS: osteoarthritis right knee TECHNIQUE: The view(s) of the knee acquired. [facility] [place] XR KNEE ARTHRITIC SERIES LT, 12/29/2017, 9:05. FINDINGS: Bones: Patient is status post knee joint arthroplasty. Hardware components are in expected positions. Visualized bony structures are intact. Soft tissues: Overlying postoperative changes are noted. Vascular calcifications consistent with atherosclerosis. IMPRESSION: Right knee arthroplasty with prosthesis in anatomic alignment. No evidence for hardware failure. Dictated by: Simone Sin M.D. on 06/22/2019 at 20:48 Approved by: Simone Sin M.D. on 06/22/2019 at 20:50
== END ==
PROVIDERS: PCP Family Medicine; Visit Provider Family Medicine
DX: M17.11 Unilateral primary osteoarthritis, right knee (principal); Z96.651 Presence of right artificial knee joint
CPT/HCPCS: 73562

== ENCOUNTER 2019-12-29 10:40 | Emergency (ER) | payer MEDICARE, OTHER, SELFPAY ==
[2018-06-15 13:11] VITALS: BMI 22.5
--- NOTE | 2019-12-29 10:50 | DI.RAD.S_ITS ---
PROCEDURE: XR CHEST 1V INDICATIONS: ALTERED MENTAL STATUS TECHNIQUE: One view of the chest was acquired. COMPARISON: [facility], , CHEST FOR PICC PLACEMENT, 05/10/2017, 12:23. FINDINGS: Surgical changes and devices: None. Lungs and pleura: Lungs are clear. No pleural effusions or pneumothorax. Mediastinum: Tortuous thoracic aorta is seen. Heart size is enlarged. Bones and chest wall: No suspicious bony lesions. Overlying soft tissues appear unremarkable. IMPRESSION: No acute cardiopulmonary pathology. Dictated by: Steven Ferreira M.D. on 12/29/2019 at 11:17 Approved by: Steven Ferreira M.D. on 12/29/2019 at 11:17
--- NOTE | 2019-12-29 10:58 | DI.CT.S_ITS ---
PROCEDURE: CT HEAD/BRAIN WO CON INDICATIONS: ACUTE ALTERED MENTAL STATUS ON ELIQUIS TECHNIQUE: Noncontrast 4.5 mm thick angled axial sections acquired from the foramen magnum to the vertex, with coronal and sagittal reformats. For radiation dose reduction, the following was used: automated exposure control, adjustment of mA and/or kV according to patient size. COMPARISON: [facility], CT, CT HEAD/BRAIN WO CON, 04/07/2019, 8:02. [facility], CT, HEAD WITHOUT CONTRAST, 07/24/2016, 15:42. FINDINGS: Image quality: Excellent. CSF spaces: Basal cisterns are patent. No extra-axial fluid collections. The ventricles are symmetric in size and shape. Brain: No intracranial bleeds or masses. There is cerebral volume loss for age, with resultant ventricular and sulcal prominence. There are periventricular and deep white matter chronic small vessel ischemic changes. There is intracranial internal carotid artery atherosclerosis. Skull and face: Calvarium and visualized facial bones appear intact, without suspicious lesions. Sinuses: Visualized sinuses and mastoids are clear. IMPRESSION: No acute intracranial disease process. Dictated by: Devika Umanzor MD, PhD on 12/29/2019 at 11:21 Approved by: Devika Umanzor MD, PhD on 12/29/2019 at 11:24
--- NOTE | 2019-12-29 11:05 | ED_ITS ---
HPI - Altered Mental Status General Chief Complaint: Altered Mental Status Stated Complaint: Possible UTI Time Seen by Provider: 12/29/19 10:47 Source: family, EMS and old records reviewed Mode of arrival: EMS Limitations: altered mental status History of Present Illness HPI narrative: The patient is a 74-year-old female with history of dementia,Lynbrook's disease coronary artery disease and pulmonary embolism on Eliquis presenting with altered mental status. Family states that she frequently gets UTIs. She was discharged from [facility] on 12/25/2019 with UTI. She was re-evaluated in the emergency department 12/26/2019 for hypotension thought to be due partially to Manpreet she was given IV hy drocortisone and 2 L of IV fluids which her blood pressure responded well to and discharged. Daughter states that when she was discharged on the her mental status with still not at her baseline but had improved. however it has progressively declined she states that she seems to be lucid 1 minutes and not the next, her blood pressure frequently fluctuation, she has been speaking english which is abnormal for her. It appears as though she has frequent admissions to [facility] for metabolic encephalopathy which sometimes is due to UTI sepsis and other times it is unknown causes. In her most recent admission in episode is described where she requires a sternal rub to become responsive at that time her blood pressure was in the 100s it is unclear if she was on a monitoring coordinator and if this is cardiac related. Related Data Home Medications Medication Instructions Recorded Confirmed baclofen 10 mg PO BEDTIME #0 10/11/16 06/15/18 aspirin 81 mg PO 0900 #0 10/12/16 06/15/18 diphenhydramine HCl [Benadryl 25 mg PO BEDTIME PRN #0 09/17/17 06/15/18 Allergy] pantoprazole 40 mg PO BID #0 09/17/17 06/15/18 vortioxetine 15 mg PO 0900 12/29/17 06/15/18 apixaban 5 mg PO BID 04/26/18 06/15/18 hydrocortisone 20 mg PO BID 04/26/18 06/15/18 metoprolol succinate 12.5 mg PO 2100 04/26/18 06/15/18 levothyroxine 100 mcg PO 0700 06/15/18 06/15/18 losartan 25 mg PO 0900 06/15/18 06/15/18 multivitamin 1 tab PO 0900 06/15/18 06/15/18 oxycodone 10 mg PO QID 06/15/18 06/15/18 Previous Rx's Medication Instructions Recorded polyethylene glycol 3350 17 gm PO DAILY #30 ea 06/19/18 quetiapine 12.5 mg PO BEDTIME #30 tab 06/19/18 Allergies Allergy/AdvReac Type Severity Reaction Status Date / Time Sulfa (Sulfonamide Allergy Intermediate BLISTERS, Verified 06/15/18 07:51 Antibiotics) Hives latex [LATEX] Allergy Mild RASH Verified 06/15/18 07:51 doxycycline [DOXYCYCLINE] Allergy Unknown UNK Verified 06/15/18 07:51 formaldehyde [FORMALDEHYDE] Allergy Unknown UNK Verified 06/15/18 07:51 levofloxacin Allergy Unknown SWELLING, Verified 06/15/18 07:51 edema penicillin G Allergy Unknown my throat Verified 06/15/18 07:51 tightens up, Hives strawberry Allergy Unknown RASH Verified 06/15/18 07:51 terbinafine Allergy Unknown unknown Verified 06/15/18 07:51 terfenadine Allergy Unknown Rash Verified 06/15/18 07:51 trazodone [TRAZODONE] Allergy Unknown Edema Verified 06/15/18 07:51 epinephrine AdvReac Severe PASSED OUT Verified 06/15/18 07:51 prednisone AdvReac Severe FEELS LIKE Verified 06/15/18 07:51 SKIN ON FIRE, Rash zolpidem AdvReac Severe HALLUCINATI Verified 06/15/18 07:51 ONS alprazolam AdvReac Mild forgetfulness, Verified 06/15/18 07:51 hallucinati- IS OK WITH LORAZEPAM & TEMAZEPAM adhesive AdvReac Unknown PAPER TAPE Verified 06/15/18 07:51 OK OTHERS? gabapentin AdvReac Unknown Verified 06/15/18 07:51 procaine AdvReac Unknown (NOVACAINE) Verified 06/15/18 07:51 Edema Review of Systems Review of Systems ROS Unobtainable: All systems reviewed & are unremarkable except as noted in HPI and below Constitutional Constitutional: Denies chills, Denies fever(s), Denies lethargy and Denies weakness Cardiovascular Cardiovascular: Denies chest pain, Denies irregular heart rhythm, Denies lightheadedness, Denies palpitations, Denies dyspnea, Denies dyspnea on exertion and Denies orthopnea Respiratory Respiratory: Denies cough, Denies dyspnea, Denies dyspnea on exertion and Denies wheezing Gastrointestinal Gastrointestinal: Reports abdominal pain Genitourinary Genitourinary: Reports as per HPI Genitourinary: Reports as per HPI Integumentary/Breasts Skin/Breast: Denies pruritus, Denies erythema, Denies rash and Denies wounds Neurologic Neurologic: Reports as per HPI, Reports confusion, Reports memory loss and Denies weakness Psychiatric Psychiatric: Reports confusion and Reports memory loss Endocrine Endocrine: Denies palpitations Allergic/Immunologic Allergic/Immunologic: Denies wheezing Patient History Medical History Lynbrook disease (Acute) Allergic rhinitis (Acute) Altered mental status (Acute) Anemia in other chronic diseases classified elsewhere (Acute) Anxiety (Acute) Aphasia (Acute) Arthritis (Acute) Asthma (Acute) Bowel obstruction (Acute ~2016) CAD (coronary artery disease) (Acute) Cellulitis (Acute) Chronic chest pain (Acute) Chronic constipation (Acute) Chronic pain (Acute) Colonic disease (Acute) Contusion of right hand including fingers (Acute) 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) CVA (cerebral vascular accident) (Acute) Depression (Acute) Diarrhea (Acute) Diverticulosis (Acute) Dyspnea on exertion (Acute) Fall (Acute) Femur fracture (Acute) Generalized headaches (Acute) Generalized weakness (Acute) GERD (gastroesophageal reflux disease) (Acute) GI bleed (Acute ~12/11/17) Hallux valgus (acquired), right foot (Acute) Hammer toe of right foot (Acute ~10/25/17) Head injury (Acute) Hiatal hernia (Acute) Hip fracture (Acute) History of colitis (Acute) History of confusion (Acute) History of headache (Acute) History of ulcer disease (Acute) History of UTI (Acute) Hyperthyroidism, subclinical (Acute) Hypokalemia (Acute) Hypotension (Acute) Hypothyroidism (Acute) Impaired vision (Acute) Incontinence (Acute) Myocardial infarction (Acute) Nausea (Acute) Nausea & vomiting (Acute) Opioid dependence (Acute) Ovarian cancer (Acute) Pneumonia (Acute) PTSD (post-traumatic stress disorder) (Acute) Right foot pain (Acute) Sepsis (Acute) Septic joint of left knee joint (Acute) Sialadenitis (Acute) Sleep apnea (Acute) Urinary incontinence (Acute) Surgical History History of arthroplasty of both knees (Acute) History of bilateral oophorectomies (Acute) History of bladder surgery (Acute) History of colonoscopy with polypectomy (Acute) History of coronary artery stent placement (Acute) History of esophagogastroduodenoscopy (EGD) (Acute) History of hysterectomy (Acute) History of Radhika fundoplication (Acute) History of tonsillectomy (Acute) History of total right hip arthroplasty (Acute) Hx of appendectomy (Acute) Hx of cardiac cath (Acute ~2013) Hx of total knee arthroplasty (Acute) S/P surgical manipulation of ankle joint (Acute) Social History household members: children Smoking Status: Never smoker alcohol intake: current Smoking Status: Never smoker alcohol intake frequency: holidays/special occasions only Substance Use Type: does not use and opiates Exam Initial Vital Signs Initial Vital Signs: Vital Signs Pulse Rate 94 H 12/29/19 11:23 Pulse Oximetry 98 12/29/19 11:23 GENERAL: Confused alert and in no acute distress. HEENT: Head atraumatic,EOMI, pupils reactive, face symmetric CARDIOVASCULAR: Regular rate and rhythm without murmurs, rubs or gallops. RESPIRATORY: Breath sounds equal bilaterally, no wheezes rales or rhonchi. ABDOMEN: Soft, tender suprapubic area no guarding no rebound EXTREMITIES: Normal range of motion, no clubbing or edema. Neurovascularly intact NEUROLOGICAL: Follow some commands intermittently speaking Ethiopian and Somali moving all extremities SKIN: Warm, dry, no laceration, no petechiae, no rashes or lesions. Course Orders Ordered: ED Orders 12/29/19 10:47 EKG-12 Lead Stat 12/29/19 10:50 XR chest 1V Stat 12/29/19 10:58 CT head/brain wo con Stat 12/29/19 11:29 CT abdomen pelvis w con Stat 12/29/19 12:00 Urinalysis and Microscopic Stat Urine Culture Stat Urine Drug Screen, Rapid Stat 12/29/19 12:22 Acetaminophen Stat Blood Culture Stat Complete Blood Count AUTO DIFF Stat Comprehensive Metabolic Panel Stat D Dimer Stat Ethanol (ETOH) Stat Ferritin Stat Lactate (Lactic Acid) Stat Partial Thromboplastin Time Stat Procalcitonin Stat Prolactin Stat Prothrombin Time INR Stat Salicylate Stat Thyroid Stimulating Hormone Stat Troponin & CK Cardiac Panel Stat Discontinued Medications Sodium Chloride (Normal Saline 0.9%) 1,000 mls @ 150 mls/hr IV CONT BJ Last Admin: 12/29/19 11:19 Dose: 150 mls/hr Documented by: GIDEON Vital Signs Vital signs: Vital Signs - 8 hr 12/29/19 11:23 12/29/19 11:27 12/29/19 11:30 Temperature 98.4 F Pulse Rate 94 H 83 84 Respiratory Rate 19 Blood Pressure 159/89 H 143/77 H Pulse Oximetry 98 98 98 12/29/19 12:30 Temperature Pulse Rate 94 H Respiratory Rate 20 Blood Pressure Pulse Oximetry 98 MDM - Altered Mental Status Lab Data Attestation: I reviewed the patient's lab results. Result diagrams: 12/29/19 12:22 12/29/19 12:22 Labs: Lab Results 12/29/19 12/29/19 12/29/19 Range/Units 12:00 12:00 12:22 WBC 9.7 (4.5-11.0) X10^3/uL RBC 4.74 (4.0-5.2) X10^6/uL Hgb 10.5 L (12.0-16.0) g/dL Hct 32.2 L (36-46) % MCV 68.1 L (80-100) fL MCH 22.1 L (26-34) PG MCHC 32.4 (30-36) % RDW 23.5 H (11.6-14.8) % Plt Count 221 (150-400) X10^3/uL Neut % (Auto) 74.0 (50-75) % Lymph % (Auto) 13.8 L (25-40) % Fisher % (Auto) 8.8 (3-14) % Eos % (Auto) 2.9 (2-4) % Baso % (Auto) 0.5 (0-2) % Neut # (Auto) 7200 H (4869-8676) /uL Lymph # (Auto) 1300 (2273-6467) /uL Fisher # (Auto) 900 (0-900) /uL Eos # (Auto) 300 (0-450) /uL Baso # (Auto) 0 (0-100) /uL RBC Morphology See below Hypochromasia 1+ H Poikilocytosis 3+ H Anisocytosis 2+ H Microcytosis 2+ H PT (10.1-12.7) SECONDS INR (0.9-1.3) APTT (26.4-36.2) SECONDS D-Dimer (<230) ng/mL Sodium (137-145) mmol/L Potassium (3.4-5.1) mmol/L Chloride (98-107) mmol/L Carbon Dioxide (22-32) mmol/L BUN (7-17) mg/dL Creatinine (0.52-1.04) mg/dL Estimated GFR (>60) mL/min BUN/Creatinine Ratio (6-22) Glucose (80-110) mg/dL Lactate (0.7-2.1) mmol/L Calcium (8.4-10.2) mg/dL Ferritin (11-264) ng/mL Total Bilirubin (0.2-1.3) mg/dL AST (14-36) IU/L ALT (<35) IU/L Alkaline Phosphatase (38-126) U/L Total Creatine Kinase (30-135) U/L CK-MB (CK-2) CK-MB (CK-2) Rel Index Troponin I (0.01-0.034) ng/mL Total Protein (6.3-8.2) g/dL Albumin (3.5-5.0) g/dL Globulin (1.7-4.1) g/dL Albumin/Globulin Ratio (1.0-2.8) Procalcitonin (<0.5) ng/mL TSH (0.47-4.68) uIU/mL Prolactin (3.0-18.6) ng/mL Urine Color Yellow Urine Appearance Clear Urine pH 8.0 (4.5-8.0) Ur Specific Basye 1.020 (1.000-1.035) Urine Protein Negative (Negative) Urine Glucose (UA) Negative (Negative) g/dL Urine Ketones Negative (NEGATIVE) Urine Occult Blood Negative (Negative) Urine Nitrate Negative (Negative) Urine Bilirubin Negative (NEGATIVE) Urine Urobilinogen 0.2 (0.2) E.U./dL Ur Leukocyte Esterase Negative (NEGATIVE) Urine RBC 0-1/hpf (0-5/HPF) Urine WBC 5-10/hpf H (0-5/HPF) Ur Squamous Epith Cells 1-5 /hpf (0-5/HPF) Urine Bacteria Few (2-10) H (None) Ur Culture Indicated? Specimen cultured Salicylates (<20) mg/dL U Opiates 300ng/mL cut Negative (Negative) Ur Oxycodone Screen Positive H (Negative) Urine Methadone Screen Negative (Negative) Acetaminophen (10-30) ug/mL Ur Barbiturates Screen Negative (Negative) U Tricyclic Antidepress Negative (Negative) Ur Phencyclidine Scrn Negative (Negative) Ur Amphetamines Screen Negative (Negative) U Methamphetamines Scrn Negative (Negative) Ur MDMA Scrn (Ecstasy) Negative (Negative) U Benzodiazepines Scrn Negative (Negative) Urine Cocaine Screen Negative (Negative) U Marijuana (THC) Screen Negative (Negative) Ethyl Alcohol ( - 10) mg/dL 12/29/19 12/29/19 12/29/19 Range/Units 12:22 12:22 12:22 WBC (4.5-11.0) X10^3/uL RBC (4.0-5.2) X10^6/uL Hgb (12.0-16.0) g/dL Hct (36-46) % MCV (80-100) fL MCH (26-34) PG MCHC (30-36) % RDW (11.6-14.8) % Plt Count (150-400) X10^3/uL Neut % (Auto) (50-75) % Lymph % (Auto) (25-40) % Fisher % (Auto) (3-14) % Eos % (Auto) (2-4) % Baso % (Auto) (0-2) % Neut # (Auto) (9049-7341) /uL Lymph # (Auto) (3193-1538) /uL Fisher # (Auto) (0-900) /uL Eos # (Auto) (0-450) /uL Baso # (Auto) (0-100) /uL RBC Morphology Hypochromasia Poikilocytosis Anisocytosis Microcytosis PT 17.8 H (10.1-12.7) SECONDS INR 1.5 H (0.9-1.3) APTT 33 D (26.4-36.2) SECONDS D-Dimer < 200 (<230) ng/mL Sodium 137 (137-145) mmol/L Potassium 3.9 (3.4-5.1) mmol/L Chloride 102 (98-107) mmol/L Carbon Dioxide 33 H (22-32) mmol/L BUN 13 (7-17) mg/dL Creatinine 0.66 (0.52-1.04) mg/dL Estimated GFR > 60.0 (>60) mL/min BUN/Creatinine Ratio 19.7 (6-22) Glucose 96 (80-110) mg/dL Lactate (0.7-2.1) mmol/L Calcium 9.0 (8.4-10.2) mg/dL Ferritin 46 (11-264) ng/mL Total Bilirubin 0.5 (0.2-1.3) mg/dL AST 26 (14-36) IU/L ALT 13 (<35) IU/L Alkaline Phosphatase 82 (38-126) U/L Total Creatine Kinase (30-135) U/L CK-MB (CK-2) CK-MB (CK-2) Rel Index Troponin I (0.01-0.034) ng/mL Total Protein 5.8 L (6.3-8.2) g/dL Albumin 3.4 L (3.5-5.0) g/dL Globulin 2.4 (1.7-4.1) g/dL Albumin/Globulin Ratio 1.4 (1.0-2.8) Procalcitonin < 0.05 (<0.5) ng/mL TSH (0.47-4.68) uIU/mL Prolactin 22.5 H (3.0-18.6) ng/mL Urine Color Urine Appearance Urine pH (4.5-8.0) Ur Specific Basye (1.000-1.035) Urine Protein (Negative) Urine Glucose (UA) (Negative) g/dL Urine Ketones (NEGATIVE) Urine Occult Blood (Negative) Urine Nitrate (Negative) Urine Bilirubin (NEGATIVE) Urine Urobilinogen (0.2) E.U./dL Ur Leukocyte Esterase (NEGATIVE) Urine RBC (0-5/HPF) Urine WBC (0-5/HPF) Ur Squamous Epith Cells (0-5/HPF) Urine Bacteria (None) Ur Culture Indicated? Salicylates 1.0 (<20) mg/dL U Opiates 300ng/mL cut (Negative) Ur Oxycodone Screen (Negative) Urine Methadone Screen (Negative) Acetaminophen < 10 L (10-30) ug/mL Ur Barbiturates Screen (Negative) U Tricyclic Antidepress (Negative) Ur Phencyclidine Scrn (Negative) Ur Amphetamines Screen (Negative) U Methamphetamines Scrn (Negative) Ur MDMA Scrn (Ecstasy) (Negative) U Benzodiazepines Scrn (Negative) Urine Cocaine Screen (Negative) U Marijuana (THC) Screen (Negative) Ethyl Alcohol < 10 ( - 10) mg/dL 12/29/19 12/29/19 12/29/19 Range/Units 12:22 12:22 12:22 WBC (4.5-11.0) X10^3/uL RBC (4.0-5.2) X10^6/uL Hgb (12.0-16.0) g/dL Hct (36-46) % MCV (80-100) fL MCH (26-34) PG MCHC (30-36) % RDW (11.6-14.8) % Plt Count (150-400) X10^3/uL Neut % (Auto) (50-75) % Lymph % (Auto) (25-40) % Fisher % (Auto) (3-14) % Eos % (Auto) (2-4) % Baso % (Auto) (0-2) % Neut # (Auto) (4976-6097) /uL Lymph # (Auto) (6816-8435) /uL Fisher # (Auto) (0-900) /uL Eos # (Auto) (0-450) /uL Baso # (Auto) (0-100) /uL RBC Morphology Hypochromasia Poikilocytosis Anisocytosis Microcytosis PT (10.1-12.7) SECONDS INR (0.9-1.3) APTT (26.4-36.2) SECONDS D-Dimer (<230) ng/mL Sodium (137-145) mmol/L Potassium (3.4-5.1) mmol/L Chloride (98-107) mmol/L Carbon Dioxide (22-32) mmol/L BUN (7-17) mg/dL Creatinine (0.52-1.04) mg/dL Estimated GFR (>60) mL/min BUN/Creatinine Ratio (6-22) Glucose (80-110) mg/dL Lactate 1.0 (0.7-2.1) mmol/L Calcium (8.4-10.2) mg/dL Ferritin (11-264) ng/mL Total Bilirubin (0.2-1.3) mg/dL AST (14-36) IU/L ALT (<35) IU/L Alkaline Phosphatase (38-126) U/L Total Creatine Kinase < 20 L (30-135) U/L CK-MB (CK-2) TNP CK-MB (CK-2) Rel Index TNP Troponin I < 0.012 (0.01-0.034) ng/mL Total Protein (6.3-8.2) g/dL Albumin (3.5-5.0) g/dL Globulin (1.7-4.1) g/dL Albumin/Globulin Ratio (1.0-2.8) Procalcitonin (<0.5) ng/mL TSH 5.40 H (0.47-4.68) uIU/mL Prolactin (3.0-18.6) ng/mL Urine Color Urine Appearance Urine pH (4.5-8.0) Ur Specific Basye (1.000-1.035) Urine Protein (Negative) Urine Glucose (UA) (Negative) g/dL Urine Ketones (NEGATIVE) Urine Occult Blood (Negative) Urine Nitrate (Negative) Urine Bilirubin (NEGATIVE) Urine Urobilinogen (0.2) E.U./dL Ur Leukocyte Esterase (NEGATIVE) Urine RBC (0-5/HPF) Urine WBC (0-5/HPF) Ur Squamous Epith Cells (0-5/HPF) Urine Bacteria (None) Ur Culture Indicated? Salicylates (<20) mg/dL U Opiates 300ng/mL cut (Negative) Ur Oxycodone Screen (Negative) Urine Methadone Screen (Negative) Acetaminophen (10-30) ug/mL Ur Barbiturates Screen (Negative) U Tricyclic Antidepress (Negative) Ur Phencyclidine Scrn (Negative) Ur Amphetamines Screen (Negative) U Methamphetamines Scrn (Negative) Ur MDMA Scrn (Ecstasy) (Negative) U Benzodiazepines Scrn (Negative) Urine Cocaine Screen (Negative) U Marijuana (THC) Screen (Negative) Ethyl Alcohol ( - 10) mg/dL Imaging Data Chest x-ray: Radiologist's Impression: PROCEDURE: XR CHEST 1V INDICATIONS: ALTERED MENTAL STATUS TECHNIQUE: One view of the chest was acquired. COMPARISON: [facility], CR, CHEST FOR PICC PLACEMENT, 05/10/2017, 12:23. FINDINGS: Surgical changes and devices: None. Lungs and pleura: Lungs are clear. No pleural effusions or pneumothorax. Mediastinum: Tortuous thoracic aorta is seen. Heart size is enlarged. Bones and chest wall: No suspicious bony lesions. Overlying soft tissues appear unremarkable. IMPRESSION: No acute cardiopulmonary pathology. Dictated by: Steven Ferreira M.D. on 12/29/2019 at 11:17 Approved by: Steven Ferreira M.D. on 12/29/2019 at 11:17 CT scan - head: Radiologist's Impression: PROCEDURE: CT HEAD/BRAIN WO CON INDICATIONS: ACUTE ALTERED MENTAL STATUS ON ELIQUIS TECHNIQUE: Noncontrast 4.5 mm thick angled axial sections acquired from the foramen magnum to the vertex, with coronal and sagittal reformats. For radiation dose reduction, the following was used: automated exposure control, adjustment of mA and/or kV according to patient size. COMPARISON: [facility], CT, CT HEAD/BRAIN WO CON, 04/07/2019, 8:02. [facility], CT, HEAD WITHOUT CONTRAST, 07/24/2016, 15:42. FINDINGS: Image quality: Excellent. CSF spaces: Basal cisterns are patent. No extra-axial fluid collections. The ventricles are symmetric in size and shape. Brain: No intracranial bleeds or masses. There is cerebral volume loss for age, with resultant ventricular and sulcal prominence. There are periventricular and deep white matter chronic small vessel ischemic changes. There is intracranial internal carotid artery atherosclerosis. Skull and face: Calvarium and visualized facial bones appear intact, without suspicious lesions. Sinuses: Visualized sinuses and mastoids are clear. IMPRESSION: No acute intracranial disease process. Dictated by: Devika Umanzor MD, PhD on 12/29/2019 at 11:21 Approved by: Devika Umanzor MD, PhD on 12/29/2019 at 11:24 ECG Data Attestation: I personally reviewed and interpreted this ECG as follows: Prior ECG tracings: available for review Interpretation: Normal sinus rhythm rate 84 p.r. interval 171 QRS [address] elevation depression or T-wave inversion similar to previous EKGs some mild artifact is noted MDM Narrative Medical decision making narrative: The is still mildly confused but speaking more Somali she is alert blood pressure has been elevated electrolytes appear to be within normal limits. At this time not concerned for adrenal insufficiency. No sign of acute infection she finished antibiotics for her UTI [address] and head CT are also negative. Daughter states that she is getting her into home 11 days. At this time no indication for admission daughter feels comfortable taking her home. Unclear what is causing her episodes of unresponsiveness I do recommend a Holter monitor if it has not been done yet. Discharge Plan Departure Patient Disposition: Home Clinical Impression: Dementia Qualifiers: Dementia type: unspecified type Dementia behavioral disturbance: without behavioral disturbance Qualified Code(s): F03.90 - Unspecified dementia without behavioral disturbance Discharge Date/Time: 12/29/19 14:55 Activity Restrictions/Additional Instructions: *You have been diagnosed with dementia *What to do: It is unclear what exactly is causing symptoms. I do recommend something called a Holter monitor to see if there is any underlying cardiac arr hythmia. At this time blood work and CT scans are all reassuring and no cause is found. *Continue to take medications as directed *Follow up with your primary care provider in 2-3 days *Return to ER if you should have increasing confusion, passing out, fever or any new, worsening or concerning symptoms Prescriptions: No Action baclofen 10 MG tablet 10 mg PO BEDTIME Qty: 0 RF: 0 aspirin 81 MG tablet,delayed release (DR/EC) 81 mg PO 0900 Qty: 0 RF: 0 diphenhydramine HCl [Benadryl Allergy] 25 MG tablet 25 mg PO BEDTIME PRN (Reason: Sleep) Qty: 0 RF: 0 pantoprazole 40 MG tablet,delayed release (DR/EC) 40 mg PO BID Qty: 0 RF: 0 metoprolol succinate 25 mg tablet extended release 24 hr 12.5 mg PO 2100 RF: 0 apixaban 5 mg tablet 5 mg PO BID RF: 0 hydrocortisone 10 mg tablet 20 mg PO BID RF: 0 vortioxetine 10 mg Tablet 15 mg PO 0900 RF: 0 levothyroxine 100 mcg tablet 100 mcg PO 0700 RF: 0 oxycodone 10 mg tablet 10 mg PO QID RF: 0 multivitamin Tablet 1 tab PO 0900 RF: 0 losartan 25 mg tablet 25 mg PO 0900 RF: 0 quetiapine 25 mg Tablet 12.5 mg PO BEDTIME Qty: 30 RF: 0 polyethylene glycol 3350 17 gram Powder In Packet 17 gm PO DAILY Qty: 30 RF: 0 Referrals: Joel Chan MD [Primary Care Provider] -
[2019-12-29] MEDS: SODIUM CHLORIDE 0.9% 1,000 ML 150 ML IV (11:19)
[2019-12-29 11:23] VITALS: PULSE 94; O2SAT 98
[2019-12-29 11:27] VITALS: BP 159/89; PULSE 83; RESP 19; TEMP 36.9; O2SAT 98; BMI 28.5
--- NOTE | 2019-12-29 11:29 | DI.CT.S_ITS ---
PROCEDURE: CT ABDOMEN PELVIS W CON INDICATIONS: lower ab pain TECHNIQUE: After the administration of intravenous contrast, 5 mm thick sections acquired from the diaphragm to the symphysis. 5 mm coronal and sagittal reformats were acquired. For radiation dose reduction, the following was used: automated exposure control, adjustment of mA and/or kV according to patient size. COMPARISON: , CT, ABDOMEN/PELVIS WITH CONTRAST, 10/09/2016, 22:36. FINDINGS: Image quality: Excellent. ABDOMEN: Lung bases: Dependent atelectasis scattered in bilateral lung bases are seen. Heart size is enlarged, no pericardial effusion.. Solid organs: Liver is normal in size and enhancement. Gallbladder is surgically absent. Biliary system is non dilated. Pancreas enhances normally. Spleen is normal in size and enhancement. No adrenal nodules. Kidneys demonstrate normal size and enhancement, without hydronephrosis. Peritoneum and bowel: There is a small to moderate size hiatal hernia. No evidence of bowel obstruction. [id number] fecal stasis in the colon is seen. No gross abnormal bowel wall thickening. Sigmoid diverticulosis is seen, no CT evidence of acute diverticulitis. No free fluid or free air. Nodes and vessels: No retroperitoneal or mesenteric adenopathy by size criteria. Aorta and inferior vena cava are normal in size. Moderate atherosclerotic disease is seen throughout abdominal aorta. Miscellaneous: No ventral hernias. PELVIS: Genitourinary: Davila catheter is seen in a decompressed urinary bladder. Miscellaneous: No inguinal hernias or adenopathy. Bones: No suspicious bony lesions. Patient is status post right total hip arthroplasty. Degenerative disc disease throughout the lower thoracic and lumbar spine is seen. No vertebral body compression fractures. IMPRESSION: 1. Mild constipation. No bowel obstruction. No abnormal bowel wall thickening. No free fluid or free air. Sigmoid diverticulosis with no CT evidence of acute diverticulitis. 2. Prior cholecystectomy. 3. Davila catheter in a decompressed urinary bladder. No renal stone or hydronephrosis. Dictated by: Steven Ferreira M.D. on 12/29/2019 at 13:19 Approved by: Steven Ferreira M.D. on 12/29/2019 at 13:22
[2019-12-29 11:30] VITALS: BP 143/77; PULSE 84; O2SAT 98
[2019-12-29 12:24] LABS: Appearance Urine UA CLEAR; Bilirubin Urine UA NEGATIVE (NEGATIVE); Color Urine UA YELLOW; Glucose Urine UA NEGATIVE (Negative); Ketones Urine UA NEGATIVE (NEGATIVE); Leukocyte Esterase Urine UA NEGATIVE (NEGATIVE); Nitrite Urine UA NEGATIVE (Negative); Occult Blood Urine UA NEGATIVE (Negative); Protein Urine UA NEGATIVE (Negative); Urobilinogen Urine UA 0.2 E.U./dL (0.2)
[2019-12-29 12:30] VITALS: PULSE 94; RESP 20; O2SAT 98
[2019-12-29 12:36] LABS: UR Morphine/Opiate cutoff 300 Negative (Negative); Ur Creatinine Normal (Normal); Ur Specific Gravity Normal (Normal); Urine Cocaine Negative (Negative); Urine Tetrahydrocannabinol Negative (Negative); Urine pH Normal (Normal)
[2019-12-29 12:36] LABS: INR 1.5 (0.9-1.3); Prothrombin Time 17.8 SECONDS (10.1-12.7)
[2019-12-29 12:37] LABS: Urine Amphetamines Negative (Negative); Urine Barbiturates Negative (Negative); Urine Benzodiazepines Negative (Negative); Urine MDMA Negative (Negative); Urine Methadone Negative (Negative); Urine Methamphetamines Negative (Negative); Urine Oxycodone Positive (Negative); Urine Phencyclidine Negative (Negative); Urine Tricyclic Antidepressant Negative (Negative)
[2019-12-29 12:38] LABS: PTT Partial Thromboplastin Tim 33 SECONDS (26.4-36.2)
[2019-12-29 12:38] LABS: Bacteria Urine Few (2-10); Culture Indicated Urine Specimen Cultured; RBC Urine 0-1/HPF (0-5/HPF); Squamous Epithelial Cell Urine 1-5 /HPF (0-5/HPF); WBC Urine 5-10/HPF (0-5/HPF)
[2019-12-29 12:44] LABS: Acetaminophen < 10 ug/mL (10-30); Alanine Aminotransferase 13 IU/L (<35); Albumin 3.4 g/dL (3.5-5.0); Albumin Globulin Ratio 1.4 (1.0-2.8); Alkaline Phosphatase 82 U/L (38-126); Aspartate Aminotransferase 26 IU/L (14-36); BUN Creatinine Ratio 19.7 (6-22); Bilirubin Total 0.5 mg/dL (0.2-1.3); Blood Urea Nitrogen 13 mg/dL (7-17); Carbon Dioxide 33 mmol/L (22-32); Chloride 102 mmol/L (98-107); Creatine Kinase < 20 U/L (30-135); D Dimer < 200 ng/mL (<230); Estimated Glomerular Filt Rate > 60.0 mL/min (>60); Ethanol (ETOH) < 10 mg/dL; Globulin 2.4 g/dL (1.7-4.1); Glucose 96 mg/dL (80-110); HEMOLYSIS < 15 (0-50); Potassium 3.9 mmol/L (3.4-5.1); Sodium 137 mmol/L (137-145); Total Protein 5.8 g/dL (6.3-8.2)
[2019-12-29 12:52] LABS: Add Manual Diff / Slide Review NO; Basophils Absolute Auto 0 /uL (0-100); Basophils Percent Auto 0.5 % (0-2); Eosinophils Absolute Auto 300 /uL (0-450); Eosinophils Percent Auto 2.9 % (2-4); Hematocrit 32.2 % (36-46); Hemoglobin 10.5 g/dL (12.0-16.0); Lymphocytes Absolute Auto 1300 /uL (1100-4500); Lymphocytes Percent Auto 13.8 % (25-40); Mean Corpuscular HGB Conc 32.4 % (30-36); Mean Corpuscular Hemoglobin 22.1 PG (26-34); Mean Corpuscular Volume 68.1 fL (80-100); Monocytes Absolute Auto 900 /uL (0-900); Monocytes Percent Auto 8.8 % (3-14); Neutrophils Absolute Auto 7200 /uL (1500-7000); Platelet Count 221 X10^3/uL (150-400); Red Blood Cell Count 4.74 X10^6/uL (4.0-5.2); Red Cell Distribution Width 23.5 % (11.6-14.8); White Blood Cell Count 9.7 X10^3/uL (4.5-11.0)
[2019-12-29 12:56] LABS: Troponin I < 0.012 ng/mL (0.01-0.034)
[2019-12-29 12:57] LABS: Procalcitonin < 0.05 ng/mL (<0.5)
[2019-12-29 13:00] LABS: Prolactin 22.5 ng/mL (3.0-18.6)
[2019-12-29 13:15] LABS: Anisocytosis 2+
[2019-12-29 13:16] LABS: Hypochromasia 1+; Microcytosis 2+
[2019-12-29 13:18] LABS: Ferritin 46 ng/mL (11-264); Poikilocytosis 3+
== END 2019-12-29 14:55 | disposition home or self-care (01) ==
PROVIDERS: Emergency Provider Emergency Medicine; PCP Family Medicine
DX: F03.90 Unspecified dementia, unspecified severity, without behavioral disturbance, psychotic disturbance, mood disturbance, and anxiety (principal); I25.10 Atherosclerotic heart disease of native coronary artery without angina pectoris; R10.30 Lower abdominal pain, unspecified; Z79.01 Long term (current) use of anticoagulants; I10 Essential (primary) hypertension
CPT/HCPCS: 51701; 70450; 71045; 74177; 80053; 80305; 80320; 80329; 81001; 82550; 82728; 83605; 84145; 84146; 84443; 84484; 85025; 85379; 85610; 85730; 87040; 87086; 93005; 93010; 99284; G0480